=== PATIENT | female | born 1940 | race Caucasian/White ===

== ENCOUNTER → 2020-06-26 10:56 | Outpatient (BNV) | payer MEDICARE, SELFPAY | PROVIDERS: PCP Internal Medicine; Visit Provider Internal Medicine | DX: C50.912 Malignant neoplasm of unspecified site of left female breast (principal) | CPT/HCPCS: 99213; 99214 ==

== ENCOUNTER → 2020-10-23 11:14 | Outpatient (BNVA) | payer MEDICARE, SELFPAY | PROVIDERS: PCP Internal Medicine; Visit Provider Internal Medicine | DX: R00.2 Palpitations (principal); R00.0 Tachycardia, unspecified; R53.1 Weakness; I35.0 Nonrheumatic aortic (valve) stenosis; I63.9 Cerebral infarction, unspecified; I48.0 Paroxysmal atrial fibrillation; I48.19 Other persistent atrial fibrillation; D50.9 Iron deficiency anemia, unspecified; Z87.891 Personal history of nicotine dependence; Z95.0 Presence of cardiac pacemaker; Z79.899 Other long term (current) drug therapy | CPT/HCPCS: 93005; 99202 ==

== ENCOUNTER → 2020-10-27 07:44 | Outpatient (REF) | payer MEDICARE, SELFPAY ==
--- NOTE | 2020-10-27 07:53 | CA_ITS ---
Transthoracic Echocardiogram Patient (Last, First, Middle): Lora Herron, Gender: Female Date of : 1940 Age: 80 Procedure Date: 10/27/2020 Procedure Type: Transthoracic Echocardiogram Location: OP Height: 162.56 cm Weight: 56.7 kg BSA: 1.60 m2 Heart Rate: bpm BP: 135 / 80 mmHg Filler Feeder: SUJATA Referring MD: Russell Ellis MD Symptoms: I35.0 - Nonrheumatic aortic (valve) stenosis Conclusions: - The left ventricular systolic function is hyperdynamic. The visually estimated ejection fraction is >70%. - Elevated filling pressures. - Normal right ventricular cavity size and systolic function. - The left atrium is severely dilated. - There is moderate to severe aortic valve stenosis. The peak aortic velocity is 3.89 m/s with a calculated peak gradient of 61 mmHg. Findings Left Ventricle Normal left ventricular cavity size. There is mildly increased left ventricular wall thickness. The left ventricular systolic function is hyperdynamic. The visually estimated ejection fraction is >70%. There is no evidence of regional wall motion abnormalities. Abnormal diastolic function is noted. Spectral Doppler is indicative of a pseudonormal filling pattern. Elevated filling pressures. Right Ventricle Normal right ventricular cavity size and systolic function. Atria The left atrium is severely dilated. The right atrium is normal in size. Aortic Valve There is moderate calcification of the aortic valve. There is moderate thickening of the aortic valve. There is moderate to severe aortic valve stenosis. The peak aortic velocity is 3.89 m/s with a calculated peak gradient of 61 mmHg. The mean gradient is 37 mmHg. The aortic valve area is 1.14 cm2. There is trace (trivial) aortic valve regurgitation. Mitral Valve There is moderate mitral annular calcification. There is trace mitral valve regurgitation. There is no mitral valve stenosis. Pulmonic Valve Normal pulmonic valve structure and function. There is trace pulmonic valve regurgitation. Tricuspid Valve Normal tricuspid valve structure and function. There is trace tricuspid valve regurgitation. Normal right atrial pressure. There is no evidence of pulmonary hypertension. Great Vessels All visible segments of the aorta are normal in size. The visualized portions of the pulmonary artery and branches are normal. Venous The inferior vena cava is normal in size and collapses greater than 50% with inspiration. Pericardium/Pleural Prominent epicardial adipose tissue noted. There is no evidence of pericardial effusion. Prior Study Comparison Changes noted compared to prior study dated: 11/29/2015. Measurements 2D Linear Measurements IVSd: 1.20 0.6-0.9/0.6-1.0 cm LVIDd: 4.46 3.9-5.3/4.2-5.9 cm LVIDd Index: 2.79 2.4-3.2/2.2-3.1 cm/m2 LVIDs: 2.71 2.0-3.6 cm LVPWd: 0.98 0.7-1.1 cm Ao Root: 2.70 2.1-3.5 cm LA Diam: 4.70 2.7-3.8/3.0-4.0 cm LAIDs Index: 2.94 1.5-2.3 cm/m2 LV Mass: 212.34 67-162/88-224 g LV Mass Index: 132.71 43-95/49-115 g/m2 LVOT Diam: 1.90 3.0+(-)1.3 cm 2D Systolic Function EF 4C: 77.40 >55% EF 2C: 75.90 >55% EF BiP: 77.80 >55% Mitral Valve MV VTI: 0.53 MV Pk Dagoberto: 1.54 MV Mn Dagoberto: 0.83 MV Pk Grad: 9.00 MV Mn Grad: 4.00 MV Pk E: 1.68 MV PK A: 1.56 MV Decel Time: 258.00 E/A: 1.10 E'Lateral: 4.35 E'Medial: 4.13 E/E' Med: 40.70 E/E' Lat: 38.60 PHT: 76.00 MVA PHT: 2.89 MVA Continuity: 2.11 Decel [place]: 6.52 Aortic Valve AoV Pk Dagoberto: 3.89 AoV Mn Dagoberto: 2.88 AoV VTI: 0.98 AoV Pk Grad: 61.00 Aov Mn Grad: 37.00 ESTRELLITA Cont.VTI: 1.14 AI Pk Dagoberto: 4.30 AI [place]: 3.31 LVOT LVOT Pk Dagoberto: 1.55 LVOT Mn [place]oberto: 1.06 LVOT VTI: 0.39 LVOT Pk Grad: 10.00 LVOT Mn Grad: 5.00 LVOT Diam: 1.90 LVOT Area: 2.84 Diastolic Function MV Pk E: 1.68 MV Pk A: 1.56 E/A: 1.10 E'Medial: 4.13 E/E' Med: 40.70 E' Laterial: 4.35 E/E' Lat: 38.60 Right Ventricle TAPSE (mm): 1.78 Tricuspid Valve TR Pk Dagoberto: 2.86 TR Pk Grad: 33.00 RA Press: 3.00 RVSP: 36.00 Great Vessels Aorta Ao Root-2D: 2.70 2.0-3.7 cm Ao Asc: 2.80 2.1-3.4 cm Updated in Other Vendor System with Status of Final Shaq Boyle MD electronically signed on 10/29/2020 11:54:46 PM with status of Final
== END ==
LOC: HO.CARD 07:44
PROVIDERS: Visit Provider Internal Medicine
DX: I35.0 Nonrheumatic aortic (valve) stenosis (principal)
CPT/HCPCS: 93306

== ENCOUNTER → 2020-10-30 14:38 | Outpatient (BNVA) | payer MEDICARE, SELFPAY | PROVIDERS: PCP Internal Medicine; Visit Provider Internal Medicine | DX: Z45.018 Encounter for adjustment and management of other part of cardiac pacemaker (principal); I35.0 Nonrheumatic aortic (valve) stenosis; I48.19 Other persistent atrial fibrillation; I63.9 Cerebral infarction, unspecified; Z79.01 Long term (current) use of anticoagulants | CPT/HCPCS: 99212 ==

== ENCOUNTER → 2020-11-08 10:52 | Outpatient (REF) | payer MEDICARE, SELFPAY ==
--- NOTE | 2020-11-08 10:56 | HM_ITS ---
Total monitoring time 3 days and 10 hours. Underlying rhythm is sinus. Minimum heart rate 60/Min. Maximum 93/Min. Average 73/Min. About 7% of the time, rate >100/Min. About 40% the time, rhythm was atrial fibrillation. Longest episode 1 day and 9 hours. No AV blocks or pauses. Rare PVCs with a burden of 1%. Shortness of breath, palpitations associated with atrial fibrillation. MTDD
== END ==
LOC: HO.CARD 10:52
PROVIDERS: Visit Provider Internal Medicine
DX: I48.19 Other persistent atrial fibrillation (principal); R00.2 Palpitations
CPT/HCPCS: 93225; 93242

== ENCOUNTER → 2020-12-11 11:12 | Outpatient (BNVA) | payer MEDICARE, SELFPAY | PROVIDERS: PCP Internal Medicine; Visit Provider Internal Medicine | DX: I35.0 Nonrheumatic aortic (valve) stenosis (principal); I48.19 Other persistent atrial fibrillation; I48.0 Paroxysmal atrial fibrillation; I63.9 Cerebral infarction, unspecified; I10 Essential (primary) hypertension; E78.00 Pure hypercholesterolemia, unspecified; G47.33 Obstructive sleep apnea (adult) (pediatric); D50.9 Iron deficiency anemia, unspecified; Z95.0 Presence of cardiac pacemaker; Z87.891 Personal history of nicotine dependence | CPT/HCPCS: 99212 ==

== ENCOUNTER → 2021-01-22 12:06 | Outpatient (REF) | payer MEDICARE, SELFPAY | LOC: HO.SL 12:06 | PROVIDERS: Visit Provider Internal Medicine | DX: G47.33 Obstructive sleep apnea (adult) (pediatric) (principal) | CPT/HCPCS: 95806 ==

== ENCOUNTER → 2021-02-26 11:14 | Outpatient (BNVA) | payer MEDICARE, SELFPAY | PROVIDERS: PCP Nurse Practitioner Family; Referring Provider Nurse Practitioner Family; Visit Provider Internal Medicine | DX: I35.0 Nonrheumatic aortic (valve) stenosis (principal); I48.19 Other persistent atrial fibrillation; I63.9 Cerebral infarction, unspecified; G47.33 Obstructive sleep apnea (adult) (pediatric); Z95.0 Presence of cardiac pacemaker | CPT/HCPCS: 99212 ==

== ENCOUNTER → 2021-03-06 10:15 | Outpatient (REF) | payer MEDICARE, SELFPAY ==
--- NOTE | 2021-03-06 10:23 | HM_ITS ---
Conclusion : 1. Patient was monitored for a total of 1 day and 22 hours 2. Basline rhythm is AF with total burden of 85% of total time, longest episode 1 day and 2 hours 3. No significant pauses or bradycardia noted 4. Patient reported one event which correlated with NSR MTDD
--- NOTE | 2021-03-06 10:23 | CA_ITS ---
Transthoracic Echocardiogram Patient (Last, First, Middle): Lora Herron, Gender: Female Date of : 1940 Age: 81 Procedure Date: 03/06/2021 Procedure Type: Transthoracic Echocardiogram Location: OP Height: 162.56 cm Weight: 63.96 kg BSA: 1.69 m2 Heart Rate: bpm BP: 137 / 74 mmHg Public Health Director: SUJATA Referring MD: Russell Ellis MD Patternmaker Grader: Edmundo Peterson MD Symptoms: I35.0 - Nonrheumatic aortic (valve) stenosis Study Quality: Fair ECG Rhythm: Atrial Fibrillation Conclusions: - 1. hyperdynamic LV systolic function with mild LVH 2. Mildly dilated left atrium 3. Moderate to severe aortic stenosis, however difficult to evaluate given atrial fibrillation 4. Normal RV systolic pressure 5. No gross pericardial effusion Findings Left Ventricle Normal left ventricular cavity size. There is mildly increased left ventricular wall thickness. The left ventricular systolic function is hyperdynamic. The visually estimated ejection fraction is >70%. Diastolic function is indeterminate on the basis of available data. Right Ventricle Normal right ventricular cavity size and systolic function. There is a pacemaker wire seen in the right ventricle. Atria The left atrium is mildly dilated. Interatrial shunt cannot be excluded. The right atrium is normal in size. A pacemaker wire is identified in the right atrium. Aortic Valve There is moderate calcification of the aortic valve. There is moderate to severe aortic valve stenosis. The peak aortic gradient is 47 mmHg.The mean gradient is 28 mmHg. There is mild aortic valve regurgitation. the gradients across aortic wall and LVOT are variable due to atrial fibrillation. There is wide variability. This leads to difficulty in evaluation of true severity of aortic stenosis. However mean gradient is about 28 mmHg across aortic valve. Calculated aortic valve area is about 1.08 centimeters sq consistent with moderately severe aortic stenosis. Mitral Valve There is moderate anterior and severe posterior mitral leaflet thickening. There is severe mitral annular calcification. Mitral stenosis cannot be entirely ruled out on this study Pulmonic Valve The pulmonic valve was not well visualized. Tricuspid Valve Likely normal tricuspid valve structure and function. There is mild tricuspid valve regurgitation. The right ventricular systolic pressure is normal. The right ventricular systolic pressure is 26 mmHg. Normal right atrial pressure. There is no evidence of pulmonary hypertension. Great Vessels All visible segments of the aorta are normal in size. The pulmonary artery was not well visualized. Venous The inferior vena cava is normal in size and collapses greater than 50% with inspiration. Pericardium/Pleural There is no evidence of pericardial effusion. Prior Study Comparison No significant change compared to prior study dated: 10/27/2020. Measurements 2D Linear Measurements IVSd: 1.20 0.6-0.9/0.6-1.0 cm LVIDd: 3.62 3.9-5.3/4.2-5.9 cm LVIDd Index: 2.14 2.4-3.2/2.2-3.1 cm/m2 LVIDs: 2.53 2.0-3.6 cm LVPWd: 1.19 0.7-1.1 cm Ao Root: 2.80 2.1-3.5 cm LA Diam: 4.40 2.7-3.8/3.0-4.0 cm LAIDs Index: 2.60 1.5-2.3 cm/m2 LV Mass: 171.84 67-162/88-224 g LV Mass Index: 101.68 43-95/49-115 g/m2 LVOT Diam: 1.80 3.0+(-)1.3 cm 2D Systolic Function EF 4C: 74.30 >55% Mitral Valve MV VTI: 0.35 MV Pk Dagoberto: 1.65 MV Mn Dagoberto: 0.89 MV Pk Grad: 11.00 MV Mn Grad: 4.00 MV Pk E: 1.44 MV Decel Time: 206.00 E'Lateral: 5.06 E'Medial: 5.33 E/E' Med: 27.00 E/E' Lat: 28.50 PHT: 61.00 MVA PHT: 3.61 MVA Continuity: 1.53 Decel [place]: 7.19 Aortic Valve AoV Pk Dagoberto: 3.44 AoV Mn Dagoberto: 2.45 AoV VTI: 0.65 AoV Pk Grad: 47.00 Aov Mn Grad: 28.00 ESTRELLITA Cont.VTI: 0.83 LVOT LVOT Pk Dagoberto: 1.09 LVOT Mn Dagoberto: 0.73 LVOT VTI: 0.21 LVOT Pk Grad: 5.00 LVOT Mn Grad: 3.00 LVOT Diam: 1.80 LVOT Area: 2.54 Diastolic Function MV Pk E: 1.44 E'Medial: 5.33 E/E' Med: 27.00 E' Laterial: 5.06 E/E' Lat: 28.50 Right Ventricle TAPSE (mm): 19.00 TVS' [place]: 14.00 Tricuspid Valve TR Pk [place]ober[place]: 2.41 TR Pk Grad: 23.00 RA Press: 3.00 RVSP: 26.00 Great Vessels Aorta Ao Root-2D: 2.80 2.0-3.7 cm Updated in Other Vendor System with Status of Final Edmundo Peterson MD electronically signed on 03/07/2021 3:05:26 PM with status of Final
== END ==
LOC: HO.CARD 10:15
PROVIDERS: Visit Provider Internal Medicine
DX: I35.0 Nonrheumatic aortic (valve) stenosis (principal); I48.19 Other persistent atrial fibrillation
CPT/HCPCS: 93242; 93306

== ENCOUNTER → 2021-04-02 12:56 | Outpatient (BNVA) | payer MEDICARE, SELFPAY | PROVIDERS: PCP Nurse Practitioner Family; Referring Provider Nurse Practitioner Family; Visit Provider Internal Medicine | DX: Z45.018 Encounter for adjustment and management of other part of cardiac pacemaker (principal); I35.0 Nonrheumatic aortic (valve) stenosis; I48.19 Other persistent atrial fibrillation; G47.33 Obstructive sleep apnea (adult) (pediatric); Z86.73 Personal history of transient ischemic attack (TIA), and cerebral infarction without residual deficits | CPT/HCPCS: 99212 ==

== ENCOUNTER → 2021-09-14 12:26 | Outpatient (REF) | payer MEDICARE, SELFPAY ==
--- NOTE | 2021-09-14 13:01 | CA_ITS ---
Transthoracic Echocardiogram Patient (Last, First, Middle): Lora Herron, Gender: Female Date of : 1940 Age: 81 Procedure Date: 09/14/2021 Procedure Type: Transthoracic Echocardiogram Location: OP Height: 160.02 cm Weight: 61.24 kg BSA: 1.64 m2 Heart Rate: bpm BP: 138 / 76 mmHg Market Analysis Director: CRISTIANE Referring MD: Russell Ellis MD Symptoms: I35.0 - Nonrheumatic aortic (valve) stenosis Study Quality: Fair Conclusions: - 1. Normal LV systolic function with mild LVH with impaired relaxation filling pattern and elevated filling pressures 2. Mildly dilated left atrium 3. Severe aortic stenosis with mean gradient of 48 mmHg. there is some evidence of possible subaortic obstruction although it is not well defined on this study. 4. Severe mitral calcification with possible mild mitral stenosis 5. Normal RV systolic pressure 6. No pericardial effusion Findings Left Ventricle Normal left ventricular size and systolic function. There is mildly increased left ventricular wall thickness. The visually estimated ejection fraction is between 60-65%. Spectral Doppler is indicative of an impaired relaxation filling pattern. Elevated filling pressures. E/E prime ratio is >15, consistent with elevated filling pressures. Right Ventricle Normal right ventricular cavity size and systolic function. Atria The left atrium is mildly dilated. There is lipomatous hypertrophy of the interatrial septum. There is no evidence of interatrial shunt. The right atrium is mildly dilated. Aortic Valve The aortic valve was not well visualized. There is moderate calcification of the aortic valve. There is severe aortic valve stenosis. The mean gradient is 48 mmHg. The aortic valve area is 0.91 cm2. There is mild aortic valve regurgitation. Mitral Valve There is mild anterior and severe posterior mitral leaflet thickening. There is severe mitral annular calcification. There is trace mitral valve regurgitation. There is mild mitral valve stenosis. Pulmonic Valve The pulmonic valve was not well visualized. Tricuspid Valve Normal tricuspid valve structure. There is mild tricuspid valve regurgitation. The right ventricular systolic pressure is normal. The right ventricular systolic pressure is 33 mmHg. Normal right atrial pressure. There is no evidence of pulmonary hypertension. Great Vessels All visible segments of the aorta are normal in size. The pulmonary artery was not well visualized. Venous The inferior vena cava is normal in size and collapses greater than 50% with inspiration. Pericardium/Pleural There is no evidence of pericardial effusion. Prior Study Comparison Changes noted compared to prior study dated: 03/06/2021. Measurements 2D Linear Measurements IVSd: 1.18 0.6-0.9/0.6-1.0 cm LVIDd: 3.96 3.9-5.3/4.2-5.9 cm LVIDd Index: 2.41 2.4-3.2/2.2-3.1 cm/m2 LVIDs: 2.14 2.0-3.6 cm LVPWd: 1.12 0.7-1.1 cm LA Diam: 4.30 2.7-3.8/3.0-4.0 cm LAIDs Index: 2.62 1.5-2.3 cm/m2 LV Mass: 190.54 67-162/88-224 g LV Mass Index: 116.19 43-95/49-115 g/m2 LVOT Diam: 1.80 3.0+(-)1.3 cm 2D Systolic Function EF 4C: 72.60 >55% EF 2C: 57.30 >55% EF BiP: 65.70 >55% Mitral Valve MV VTI: 0.63 MV Pk Dagoberto: 1.71 MV Mn Dagoberto: 0.99 MV Pk Grad: 12.00 MV Mn Grad: 5.00 MV Pk E: 1.18 MV PK A: 1.52 MV Decel Time: 442.00 E/A: 0.80 E'Lateral: 4.13 E'Medial: 3.05 E/E' Med: 38.70 E/E' Lat: 28.60 PHT: 124.00 MVA PHT: 1.77 MVA Continuity: 1.50 Decel [place]: 3.77 Aortic Valve AoV Pk Dagoberto: 4.24 AoV Mn Dagoberto: 3.30 AoV VTI: 1.04 AoV Pk Grad: 72.00 Aov Mn Grad: 48.00 ESTRELLITA Cont.VTI: 0.91 AI Pk Dagoberto: 4.57 AI [place]: 2.49 LVOT LVOT Pk Dagoberto: 1.48 LVOT Mn [place]: 1.19 LVOT VTI: 0.37 LVOT Pk Grad: 9.00 LVOT Mn Grad: 6.00 LVOT Diam: 1.80 LVOT Area: 2.54 Diastolic Function MV Pk E: 1.18 MV Pk A: 1.52 E/A: 0.80 E'Medial: 3.05 E/E' Med: 38.70 E' Laterial: 4.13 E/E' Lat: 28.60 Right Ventricle TAPSE (mm): 17.10 TVS' [place]: 8.27 Tricuspid Valve TR Pk [place]: 2.76 TR Pk Grad: 30.00 RA Press: 3.00 RVSP: 33.00 Great Vessels Aorta Sinus of Valsalva: 2.68 2.0-3.5 cm Ao Asc: 2.90 2.1-3.4 cm Ao Arch: 2.80 Updated in Other Vendor System with Status of Final Edmundo Peterson MD electronically signed on 09/15/2021 2:20:21 PM with status of Final
== END ==
LOC: HO.CARD 12:26
PROVIDERS: Visit Provider Internal Medicine
DX: I35.0 Nonrheumatic aortic (valve) stenosis (principal)
CPT/HCPCS: 93306

== ENCOUNTER 2021-09-27 11:24 | Outpatient (REF) | payer MEDICARE, SELFPAY ==
[2021-09-27 12:02] LABS: Hematocrit 44.3 % (37.0-47.0); Hemoglobin 14.8 g/dl (12.0-16.0); Mean Corpuscular HGB Conc 33.4 g/dl (31.0-35.0); Mean Corpuscular Hemoglobin 32.4 pg (27.0-33.0); Mean Corpuscular Volume 96.9 fL (80.0-98.0); Mean Platelet Volume 9.9 fL (9.4-12.3); Platelet Count 320 X10*3/uL (160-400); Red Blood Count 4.57 X10*6/uL (4.20-5.50); Red Cell Distribution Width 13.1 % (11.0-16.0); White Blood Count 10.6 X10*3/uL (4.8-10.8)
[2021-09-27 12:06] LABS: INTERNATIONAL NORM RATIO 1.2 (0.9-1.1); Prothrombin Time 14.3 SEC (10.0-13.1)
[2021-09-27 12:29] LABS: Anion Gap 11 (12-20); Blood Urea Nitrogen 18 mg/dL (9-16); Calcium 9.7 mg/dL (8.4-10.2); Carbon Dioxide 27 mmol/L (22-29); Chloride 111 mmol/L (96-108); Estimated Glomerular Filt Rate 54; Glucose Random 117 mg/dL (60-115); Potassium 4.6 mmol/L (3.3-5.1); Sodium 144 mmol/L (135-145)
[2021-09-27 12:51] LABS: TSH reflex Free T4 1.79 uIU/mL (0.32-4.0)
== END 2021-09-27 11:25 | disposition home or self-care (01) ==
LOC: HO.LAB 11:24
PROVIDERS: Visit Provider Internal Medicine
DX: I35.0 Nonrheumatic aortic (valve) stenosis (principal); I48.19 Other persistent atrial fibrillation
CPT/HCPCS: 36415; 80048; 84443; 85027; 85610; 93005; 99212

== ENCOUNTER → 2021-11-14 12:52 | Outpatient (BNVA) | payer MEDICARE, SELFPAY | PROVIDERS: Visit Provider Internal Medicine | DX: I35.0 Nonrheumatic aortic (valve) stenosis (principal); I10 Essential (primary) hypertension; I48.19 Other persistent atrial fibrillation; I65.23 Occlusion and stenosis of bilateral carotid arteries; G47.33 Obstructive sleep apnea (adult) (pediatric); Z86.73 Personal history of transient ischemic attack (TIA), and cerebral infarction without residual deficits; Z79.01 Long term (current) use of anticoagulants; Z79.899 Other long term (current) drug therapy; Z95.0 Presence of cardiac pacemaker | CPT/HCPCS: 99212 ==

== ENCOUNTER → 2022-01-23 12:43 | Outpatient (REF) | payer MEDICARE, SELFPAY ==
--- NOTE | 2022-01-23 12:47 | CA_ITS ---
Transthoracic Echocardiogram Patient (Last, First, Middle): Lora Herron, Gender: Female Date of : 1940 Age: 82 Procedure Date: 01/23/2022 Procedure Type: Transthoracic Echocardiogram Location: OP Height: 160.02 cm Weight: 60.78 kg BSA: 1.63 m2 Heart Rate: bpm BP: 100 / 62 mmHg Store Worker: TO Referring MD: Russell Ellis MD Symptoms: Z95.2 - Presence of prosthetic heart valve Study Quality: Fair ECG Rhythm: Atrial Fibrillation Conclusions: - The left ventricular systolic function is normal. The visually estimated ejection fraction is between 65-70%. - A bioprosthetic aortic valve is present. The prosthetic aortic valve appears to be functioning normally. Findings Left Ventricle Normal left ventricular cavity size. The left ventricular systolic function is normal. The visually estimated ejection fraction is between 65-70%. There is no evidence of regional wall motion abnormalities. Diastolic function is indeterminate on the basis of available data. [id number] left ventricular hypertrophy, concentric with some asymmetric septal hypertrophy. Mildly increased gradients across the LVOT but no definite obstruction. Right Ventricle Normal right ventricular cavity size. There is mildly decreased right ventricular systolic function. There is a pacemaker wire seen in the right ventricle. Atria The left atrium is mildly dilated. Aortic Valve A bioprosthetic aortic valve is present. The prosthetic aortic valve appears to be functioning normally. The mean gradient is 8 mmHg. Mild para-valvular leak. Mitral Valve There is moderate mitral annular calcification. There is trace mitral valve regurgitation. There is mild mitral valve stenosis. Pulmonic Valve The pulmonic valve is likely normal. Tricuspid Valve Normal tricuspid valve structure. There is mild tricuspid valve regurgitation. There is no evidence of pulmonary hypertension. Great Vessels The asc aorta and aortic arch are normal in size. Venous The inferior vena cava is normal in size and collapses greater than 50% with inspiration. Pericardium/Pleural There is a trivial pericardial effusion. Prior Study Comparison Changes noted compared to prior study dated: 09/14/2021. s/p TAVR. Measurements 2D Linear Measurements IVSd: 1.44 0.6-0.9/0.6-1.0 cm LVIDd: 2.95 3.9-5.3/4.2-5.9 cm LVIDd Index: 1.81 2.4-3.2/2.2-3.1 cm/m2 LVIDs: 1.60 2.0-3.6 cm LVPWd: 1.25 0.7-1.1 cm LA Diam: 3.30 2.7-3.8/3.0-4.0 cm LAIDs Index: 2.02 1.5-2.3 cm/m2 LV Mass: 159.88 67-162/88-224 g LV Mass Index: 98.09 43-95/49-115 g/m2 LVOT Diam: 1.80 3.0+(-)1.3 cm 2D Systolic Function EF 4C: 60.70 >55% EF 2C: 69.30 >55% EF BiP: 65.20 >55% Mitral Valve MV VTI: 0.44 MV Pk Dagoberto: 1.67 MV Mn [place]to: 0.73 MV Pk Grad: 11.00 MV Mn Grad: 3.00 MV Pk E: 1.60 MV Decel Time: 317.00 E'Lateral: 5.44 E'Medial: 5.22 E/E' Med: 30.70 E/E' Lat: 29.40 PHT: 93.00 MVA PHT: 2.37 MVA Continuity: 1.65 Decel [place]: 5.04 Aortic Valve AoV Pk Dagoberto: 2.02 AoV Mn [place]: 1.29 AoV VTI: 0.39 AoV Pk Grad: 16.00 Aov Mn Grad: 8.00 ESTRELLITA Cont.VTI: 1.86 LVOT LVOT Pk [place]: 1.26 LVOT Mn [place]: 0.89 LVOT VTI: 0.28 LVOT Pk Grad: 6.00 LVOT Mn Grad: 4.00 LVOT Diam: 1.80 LVOT Area: 2.54 Diastolic Function MV Pk E: 1.60 E'Medial: 5.22 E/E' Med: 30.70 E' Laterial: 5.44 E/E' Lat: 29.40 Right Ventricle TAPSE (mm): 15.10 TVS' [place]: 8.38 Tricuspid Valve TR Pk [place]: 2.39 TR Pk Grad: 23.00 RA Press: 3.00 RVSP: 26.00 Great Vessels Aorta Ao Asc: 2.60 2.1-3.4 cm Ao Arch: 2.90 Updated in Other Vendor System with Status of Final Russell Ellis MD electronically signed on 01/25/2022 10:10:19 AM with status of Final
== END ==
LOC: HO.CARD 12:43
PROVIDERS: Visit Provider Internal Medicine
DX: Z95.2 Presence of prosthetic heart valve (principal)
CPT/HCPCS: 93306

== ENCOUNTER → 2022-02-20 13:33 | Outpatient (BNVA) | payer MEDICARE, SELFPAY | PROVIDERS: Visit Provider Internal Medicine | DX: I48.19 Other persistent atrial fibrillation (principal); I63.9 Cerebral infarction, unspecified; I10 Essential (primary) hypertension; G47.33 Obstructive sleep apnea (adult) (pediatric); Z95.2 Presence of prosthetic heart valve; Z95.0 Presence of cardiac pacemaker | CPT/HCPCS: 99212 ==

== ENCOUNTER → 2022-07-01 12:15 | Outpatient (BNVA) | payer MEDICARE, SELFPAY | PROVIDERS: Visit Provider Internal Medicine | DX: I48.19 Other persistent atrial fibrillation (principal); G47.33 Obstructive sleep apnea (adult) (pediatric); I10 Essential (primary) hypertension; Z86.73 Personal history of transient ischemic attack (TIA), and cerebral infarction without residual deficits; Z95.2 Presence of prosthetic heart valve; Z45.018 Encounter for adjustment and management of other part of cardiac pacemaker; Z79.01 Long term (current) use of anticoagulants; Z79.899 Other long term (current) drug therapy | CPT/HCPCS: 93280; 99212 ==

== ENCOUNTER → 2022-09-24 23:59 | Outpatient (BNV) | payer MEDICARE, SELFPAY ==
--- NOTE | 2022-10-02 14:17 | A.OFFVIS_ITS ---
Intake Intake Visit Reasons: Remote Device Check- [employer] Allergies Seasonal Allergies Allergy (Verified 07/01/22 13:08) Runny Nose PFSH Medical History Breast cancer, left Embolic stroke Heart murmur HTN (hypertension) Hypercholesterolemia Iron deficiency anemia Non-rheumatic aortic stenosis Pacemaker PAF (paroxysmal atrial fibrillation) Persistent atrial fibrillation Stroke Tachycardia Surgical History History of lumpectomy of left breast Hx of colonoscopy Hx of foot surgery Hx of hysterectomy Hx of tonsillectomy Status post transcatheter aortic valve replacement Family History Brother Hodgkin lymphoma Father Colon cancer Social History (Updated 07/01/22 @ 13:11 by Lazara Bragg) Household Members: None Housing: House Alcohol intake: current Alcohol intake frequency: holidays/special occasions only Alcohol type: other Patient Tobacco Use Status: Former Tobacco user service: No Current occupational status: retired Office Procedures Cardiac Device Check Cardiac Device Check Details: Date of service- 09/24/2022 ; Battery life 11 years; normal lead parameters; AP <0.1%; [employer] MEMBER 69%; underlying atrial fibrillation, controlled rate. Overall normal device function. [id number] Cardiac Device Interrogation, pacemaker Procedure code (CPT) selection complete Assessment & Plan Assessment & Plan (1) Persistent atrial fibrillation: Code(s): I48.19 - Other persistent atrial fibrillation Coding Level of Care Code Procedure Only Diagnoses Persistent atrial fibrillation I48.19 CPT Codes Cardiac Device Check - Cardiac Device 12: [id number] Cardiac Device Interrogation, pacemaker ([id number])
== END ==
PROVIDERS: PCP Family Medicine; Visit Provider Internal Medicine
DX: I48.19 Other persistent atrial fibrillation (principal)
CPT/HCPCS: 93294

== ENCOUNTER 2022-10-16 10:07 | Outpatient (AMB) | payer MEDICARE, SELFPAY ==
--- NOTE | 2022-10-16 10:14 | MHC.PC.OV ---
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 Patient reports feeling tired all of the time, feeling stressed more often, sleeping on and off throughout the night. Patient reports struggling with feeling anxious/nervous. During these times of feeling anxious and nervous patient reports she does not drive. Patient states she has a pacemaker on the right side. 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 Required: No Accompanied by: Self / Same As Patient Allergies Seasonal Allergies Allergy (Verified 10/16/22 10:23) Runny Nose Medication List - Last Reconciled 10/16/22 by Hansel Gerber MD apixaban (Eliquis) 2.5 mg PO BID aspirin 81 mg PO DAILY atorvastatin 80 mg PO QPM coQ10 (ubiquinol) 200 mg PO DAILY digoxin (Digox) 125 mcg PO DAILY diltiazem HCl 240 mg PO DAILY lisinopril 2.5 mg PO DAILY metoprolol succinate ER (Toprol XL) 75 mg (3 x 25 mg) PO DAILY 90 days turmeric (bulk) 95% (Curcumin) 300 ea miscellaneous DAILY Tobacco use date assessed: 10/16/22 Fall risk assessment: 1 Fall in past year Last assessed Fall Risk: 10/16/22 Dental Screening Dental Screen Date: 10/16/22 Did you have a dental visit in the last 12 months?: Yes Did you have a dental problem in the last 6 months where you did not have access to dental care?: No Was dental information given to patient?: Patient has dentist 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 [facility] Last office visit/CPE: > 1 yr Acute issue(s): Anxiety -Pt mentions she has used valium in the past for TMJ. Fatigue -Has been having difficulty sleeping and reports she has been feeling stressed. She mentions waking up multiple times and reports she worries about falling asleep at the wheel. She does have a hx of sleep apnea. PMHx: Afib now s/p pacer, aortic stenosis, HTN, CVA w/ R sided weakness which has resolved, HLD, Breast CA, PreDM, SBO, Cholelithiasis, R Thyroid Lobe Nodule, MAXWELL. Hiatal hernia. Endometrioma (s/p hysterectomy) SurgHx: L mastectomy, Hysterectomy and 1 ovary SocHx: Quit 1985, EtOH occasional for holidays. HPI Comments History of Present Illness Details Documentation assistance for Hansel Gerber MD, was provided by Percy Walls,? Motorcycle Racer on 10/16/2022 11:13 AM CRISTINO. Ruby, Dr. Gerber, have read, observed, and verified documentation. [facility] Medical History Breast cancer, left Embolic stroke Heart murmur HTN (hypertension) Hypercholesterolemia Iron deficiency anemia Non-rheumatic aortic stenosis Pacemaker PAF (paroxysmal atrial fibrillation) Persistent atrial fibrillation Stroke Tachycardia Surgical History History of lumpectomy of left breast Hx of colonoscopy Hx of foot surgery Hx of hysterectomy Hx of tonsillectomy Status post transcatheter aortic valve replacement Family History Brother Hodgkin lymphoma Father Colon cancer Social History (Updated 10/16/22 @ 10:26 by Destiney Hernandez) Household Members: None Housing: House Alcohol intake: current Alcohol intake frequency: holidays/special occasions only Alcohol type: other Patient Tobacco Use Status: Former Tobacco user e-Cigarette/Vaping Use: Never Used service: No Current occupational status: retired Cognitive needs: No Hearing needs: No Vision needs: No Questionnaire PHQ-9 Over the last 2 weeks, how often have you been bothered by any of the following problems? 1. Little interest or pleasure in doing things: not at all 2. Feeling down, depressed, or hopeless: not at all 3. Trouble falling or staying asleep, or sleeping too much: more than half the days 4. Feeling tired or having little energy: more than half the days 5. Poor appetite or overeating: not at all 6. Feeling bad about yourself - or that you are a failure or have let yourself or your family down: not at all 7. Trouble concentrating on things, such as reading the newspaper or watching television: not at all 8. Moving or speaking so slowly that other people could have noticed. Or the opposite - being so fidgety or restless that you have been moving around a lot more than usual: several days 9. Thoughts that you would be better off or of hurting yourself in some way: not at all Total score: 5 Depression Screening Interpretation: Positive 02312 - PHQ-9 Billing: Yes Source: Developed by Drs. Marvin Rodas, Zehra Cartwright, Bandar Freeman and colleagues, with an educational josselin from [employer]. DOMONIQUE-7 AMB Questionnaire DOMONIQUE-7 Date DOMONIQUE - 7 assessed: 10/16/22 Feeling nervous, anxious, or on edge: 2 = More than half the days Not being able to stop or control worryin = Several days Worrying too much about different things: 1 = Several days Trouble relaxin = Several days Being so restless that it is hard to sit still: 2 = More than half the days Becoming easily annoyed or irritable: 1 = Several days Feeling afraid as if something awful might happen: 0 = Not at all Total DOMONIQUE-7 score (0-4 normal; 5-9 mild; 10-14 moderate; 15-21 severe): 8 Source: Developed by Drs. Marvin Rodas, Zehra Cartwright, Bandar Freeman and colleagues, with an educational josselin from [employer]. DOMONIQUE-7 Assessment Billing DOMONIQUE-7 Assessment Tool: DOMONIQUE-7 Assessment 14074 Review of Systems Const Denies chills, Denies fatigue, Denies fever(s), Denies headache(s) and Denies weakness ENT Denies dizziness and Denies headache(s) Card Denies chest pain, Denies lightheadedness, Denies dyspnea and Denies other (Palpitations) Resp Denies cough, Denies dyspnea, Denies wheezing and Denies other ( shortness of breath) Musc Denies numbness and Denies tingling Neuro Denies dizziness, Denies headache(s), Denies numbness, Denies tingling, Denies paresthesias and Denies weakness Psych Denies anxiety and Denies depression Endo Denies fatigue Aller/Immun Denies wheezing Physical exam (Primary Care) Vital Signs: Last Vital Signs Temp 98.4 F 10/16/22 10:18 Pulse 76 10/16/22 10:18 Resp 14 10/16/22 10:18 BP 130/74 10/16/22 10:18 Pulse Ox 95 10/16/22 10:18 Oxygen Delivery Method Room Air 10/16/22 10:18 BMI result Body Mass Index 25.3 Tobacco/Smoking Status: Tobacco use Status Tobacco use date assessed 10/16/22 10/16/22 10:27 Patient Tobacco Use Status Former Tobacco user 10/16/22 10:26 e-Cigarette/Vaping Use Never Used 10/16/22 10:27 Depression Screening Interpretation: Positive Const General: no acute distress and well developed Nutritional Appearance: well nourished Orientation/consciousness: patient oriented x3 HENMT Head: Yes normocephalic and Yes atraumatic Eyes General: appearance normal, both eyes and all related structures Pupils: Equal, round and reactive pupils present EOM: EOMs intact bilaterally Resp Effort & Inspection: normal respiratory effort Auscultation: clear to auscultation bilaterally Cardio Rate: regular rate Rhythm: abnormal rhythm and abnormal rhythm irregularly irregular Heart sounds: S1 normal heart sound present, S2 normal heart sound present, no gallops, no murmurs and no rubs Neuro General: patient oriented x3 and gait normal Cranial nerves: Yes Equal, round and reactive pupils present Psych Affect: normal affect Assessment and Plan Assessment & Plan (1) Anxiety: Code(s): F41.9 - Anxiety disorder, unspecified Plan: New/worsened anxiety. Patient mentions that she has used Valium in the past for TMJ. I discussed that using a sedating medication as a first-line medication would be potentially problematic Offered SSRI treatment but patient declines for now. Anxiety may be secondary to stressful event-offered a therapist but patient declines this. May also have worsened anxiety secondary to sleep apnea which is untreated. Referring patient to Sleep Medicine (2) Fatigue: Code(s): R53.83 - Other fatigue Plan: Likely secondary to untreated sleep apnea. Will check for other causes as well. Referring her to Sleep Medicine (3) Normally functioning cardiac pacemaker present: Code(s): Z95.0 - Presence of cardiac pacemaker Plan: Stable Follow-up with Cardiology (4) Persistent atrial fibrillation: Code(s): I48.19 - Other persistent atrial fibrillation Plan: Patient has a pacer and her rate is controlled. Continue Eliquis and aspirin Follow-up with Cardiology as recommended (5) Hiatal hernia: Code(s): K44.9 - Diaphragmatic hernia without obstruction or gangrene Plan: Patient requests referral to General surgery to discuss repair (6) History of stroke: Code(s): Z86.73 - Personal history of transient ischemic attack (TIA), and cerebral infarction without residual deficits Plan: History of stroke with initial right-sided weakness. No residual weakness. She is on aspirin Blood pressure is controlled (7) Laboratory exam ordered as part of routine general medical examination: Code(s): Z00.00 - Encounter for general adult medical examination without abnormal findings Plan: Check labs Orders: Orders Vitamin B12 and Folate Today E53.8 - Deficiency of other specified B group vitamins Comprehensive [place]. Panel Fast Today Z00.00 - Encounter for general adult medical examination without abnormal findings Lipid Panel Today Z00.00 - Encounter for general adult medical examination without abnormal findings TSH reflex Free T4 Today Z00.00 - Encounter for general adult medical examination without abnormal findings Vitamin D 25-OH Total Today E55.9 - Vitamin D deficiency, unspecified Microalbumin, Random (w Creat) Today I10 - Essential (primary) hypertension Complete Blood Count Auto Diff Today Z00.00 - Encounter for general adult medical examination without abnormal findings UA and rflx microscopic Today Z00.00 - Encounter for general adult medical examination without abnormal findings Digoxin Today I48.19 - Other persistent atrial fibrillation Referrals General Surgery Referral K44.9 - Diaphragmatic hernia without obstruction or gangrene Sleep Medicine Referral G47.33 - Obstructive sleep apnea (adult) (pediatric) Coding Level of Care Code New Pt Level 4 (63828) Diagnoses Anxiety F41.9 Fatigue R53.83 Normally functioning cardiac pacemaker present Z95.0 Persistent atrial fibrillation I48.19 Hiatal hernia K44.9 History of stroke Z86.73 Laboratory exam ordered as part of routine general medical examination Z00.00 Additional Codes DOMONIQUE-7 Assessment Billing - DOMONIQUE-7 Assessment Tool: DOMONIQUE-7 Assessment 63708 ([id number])
[2022-10-16 10:18] VITALS: BP 130/74; PULSE 76; RESP 14; TEMP 36.9; O2SAT 95; BMI 25.3
== END 2022-10-16 11:13 | disposition home or self-care (01) ==
PROVIDERS: Visit Provider Family Medicine
DX: F41.9 Anxiety disorder, unspecified (principal); I48.19 Other persistent atrial fibrillation; Z86.73 Personal history of transient ischemic attack (TIA), and cerebral infarction without residual deficits; Z95.0 Presence of cardiac pacemaker; R53.83 Other fatigue; K44.9 Diaphragmatic hernia without obstruction or gangrene
CPT/HCPCS: 96127; 99204

== ENCOUNTER 2022-11-13 13:11 | Outpatient (AMB) | payer MEDICARE, SELFPAY ==
--- NOTE | 2022-11-13 13:13 | A.OFFVIS_ITS ---
Intake Vital Signs 11/13/22 13:19 Height 5 ft 0.75 in Weight 124 lb 5.451 oz BMI 23.7 BP 130/60 Blood Pressure Location Rt brachial Position Sitting Pulse 82 Pulse Source Pulse Oximeter Temp 97.6 F Temp Source Tympanic Pulse Oximetry (%) 96 Oxygen Delivery Method Room Air Intake Visit Reasons: Hiatal hernia Dietitian Chief Required: No Ct Scan Technologist: Ct Scan Technologist offered & declined Allergies Seasonal Allergies Allergy (Verified 11/13/22 13:20) Runny Nose Medication List - Last Reconciled 11/13/22 by Flavio Jimenez MD apixaban (Eliquis) 2.5 mg PO BID aspirin 81 mg PO DAILY atorvastatin 80 mg PO QPM coQ10 (ubiquinol) 200 mg PO DAILY digoxin (Digox) 125 mcg PO DAILY diltiazem HCl 240 mg PO DAILY lisinopril 2.5 mg PO DAILY metoprolol succinate ER (Toprol XL) 75 mg (3 x 25 mg) PO DAILY 90 days turmeric (bulk) 95% (Curcumin) 300 ea miscellaneous DAILY HPI HPI Comments History of Present Illness Details The patient is an 82-year-old woman who walks with a walker and is referred to discuss a large hiatal hernia that was identified previously. Patient notes that last fall, November 2021, when she was being assessed for a TAVR, she had an MRI of her chest that showed most of my stomach is in my chest. Patient notes that she has previously seen Dr. Hale for colonoscopy and endoscopy but is unclear as to when her last upper endoscopy was performed thinking it was at least 5 years ago. Patient notes a prior history of severe GERD that was managed with omeprazole, however, she states that her upper GI symptoms have resolved and she rarely will take Tums at this point. She has stopped any PPI and reports no GERD, regurgitation, water/sour brash, dysphagia, odynophagia, hematemesis or unexplained weight loss. She is here purely because she was told she has a large hiatal hernia which is asymptomatic but she is concerned about possible co mplications. In addition to the TAVR last fall, the patient notes a history of atrial fibrillation requiring Eliquis, hypertension, history of an embolic stroke, obstructive sleep apnea, a pacemaker that was placed due to bradycardia, and history of breast cancer in 2013 treated with lumpectomy and axillary dissection. Patient is a former smoker who quit in 1985, she notes her only abdominal o perations is a hysterectomy in 1977 for endometriosis and endometrioma. Patient states she was admitted to [facility] earlier this year in Jul, 2022 for presumed bowel obstruction since she was having severe vomiting. There was a CT scan done at that time and I have reviewed the report, but will need to see the images as well as the discharge summary from that hospitalization. GERD questionnaire rates 0 ESS 9 (known MAXWELL & CPAP) PFSH Medical History Breast cancer, left Embolic stroke Heart murmur HTN (hypertension) Hypercholesterolemia Iron deficiency anemia Non-rheumatic aortic stenosis Pacemaker PAF (paroxysmal atrial fibrillation) Persistent atrial fibrillation Stroke Tachycardia Surgical History History of lumpectomy of left breast Hx of colonoscopy Hx of foot surgery Hx of hysterectomy Hx of tonsillectomy Status post transcatheter aortic valve replacement Family History Brother Hodgkin lymphoma Father Colon cancer Social History Household Members: None Housing: House Alcohol intake: current Alcohol intake frequency: holidays/special occasions only Alcohol type: other Patient Tobacco Use Status: Former Tobacco user e-Cigarette/Vaping Use: Never Used service: No Current occupational status: retired Cognitive needs: No Hearing needs: No Vision needs: No Review of Systems Const All systems reviewed & are unremarkable except as noted in HPI and below Reports as per HPI Physical Exam Vital Signs: Last Vital Signs Temp 97.6 F 11/13/22 13:19 Pulse 82 11/13/22 13:19 BP 130/60 11/13/22 13:19 Pulse Ox 96 11/13/22 13:19 Oxygen Delivery Method Room Air 11/13/22 13:19 BMI result Body Mass Index 23.7 On exam, the patient is nontoxic and is in good spirits She utilizes a walker for stability She is anicteric She is frail and kyphotic with interosseous hand muscle wasting Heart is irregular with a possible murmur No carotid bruits are appreciated and no cervical masses or adenopathy are appreciated Her lungs are clear and equal anteriorly Her abdomen is soft and nontender with no appreciated hernias Skin has decreased turgor and is thinned as expected with her age Results Reviewed Results Reviewed: Labs from 07/01/2022 show a normal hemoglobin of 13.5 with normal indices, elev ated white count of 12 point 9 and a platelet count of 322 K Patient has a BUN of 15/creatinine of 1.07 and had a sodium of 147 at that visit Nonfasting labs including a pre-albumin, CMP, CBC, hemoglobin A1c given her chronically elevated blood glucose are ordered Diagnostic imaging: An upper GI is ordered The patient is granted permission to contact [facility] to obtain the actual disc with her CT from earlier this year as well as admission record Chest CT report from [facility] is reviewed and demonstrates a moderate hiatal hernia according to the report Assessment & Plan Assessment & Plan (1) Hiatal hernia: Code(s): K44.9 - Diaphragmatic hernia without obstruction or gangrene (2) Anticoagulated: 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(s): 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 (3) Status post transcatheter aortic valve replacement: Code(s): Z95.2 - Presence of prosthetic heart valve (4) Essential hypertension: Code(s): I10 - Essential (primary) hypertension (5) MAXWELL (obstructive sleep apnea): Code(s): G47.33 - Obstructive sleep apnea (adult) (pediatric) (6) Normally functioning cardiac pacemaker present: Code(s): Z95.0 - Presence of cardiac pacemaker (7) Persistent atrial fibrillation: Code(s): I48.19 - Other persistent atrial fibrillation (8) Embolic stroke: Code(s): I63.9 - Cerebral infarction, unspecified (9) Breast cancer: Code(s): C50.919 - Malignant neoplasm of unspecified site of unspecified female breast (10) Non-rheumatic aortic stenosis: Code(s): I35.0 - Nonrheumatic aortic (valve) stenosis (11) History of stroke: Code(s): Z86.73 - Personal history of transient ischemic attack (TIA), and cerebral infarction without residual deficits Plan Using a teaching travel counselor automobile club, I explained a hiatal hernia to the patient and did discuss possible complications such as Yared erosions/ulcers that can cause chronic anemia, torsion or volvulus. The patient would like to obtain more information and is willing to go for nonfasting labs today, schedule an upper GI and we did briefly discuss the probable need for repeat upper endoscopy by me to assess her anatomy and appropriateness for surgical planning. I also explained to the patient the need to include her other physicians given her comorbidities and need to coordinate care since this operation is done under general anesthesia. I will see the patient after the workup is complete. Orders: Orders Comprehensive Met. 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, Z86.73 - Personal history of transient ischemic attack (TIA), and cerebral infarction without residual deficits, Z95.0 - Presence of cardiac pacemaker, Z95.2 - Presence of prosthetic heart valve Prealbumin Today G47.33 - Obstructive sleep apnea (adult) (pediatric), I10 - Essential (primary) hypertension, I48.19 - Other persistent atrial fibrillation, I63.9 - Cerebral infarction, unspecified, K44.9 - Diaphragmatic hernia without obstruction or gangrene, 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, Z86.73 - Personal history of transient ischemic attack (TIA), and cerebral infarction without residual deficits, Z95.0 - Presence of cardiac pacemaker, Z95.2 - Presence of prosthetic heart valve Prothrombin Time INR Today G47.33 - Obstructive sleep apnea (adult) (pediatric), I10 - Essential (primary) hypertension, I48.19 - Other persistent atrial fibrillation, I63.9 - Cerebral infarction, unspecified, K44.9 - Diaphragmatic hernia without obstruction or gangrene, Z79.01 - correction (current) use of anticoagulants, Z86.73 - Personal history of transient ischemic attack (TIA), and cerebral infarction without residual deficits, Z95.0 - Presence of cardiac pacemaker, Z95.2 - Presence of prosthetic heart valve Partial Thromboplastin Time Today B20 - Human immunodeficiency virus [HIV] disease, G47.33 - Obstructive sleep apnea (adult) (pediatric), I10 - Essential (primary) hypertension, I48.19 - Other persistent atrial fibrillation, I63.9 - Cerebral infarction, unspecified, K44.9 - Diaphragmatic hernia without obstruction or gangrene, 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, Z86.73 - Personal history of transient ischemic attack (TIA), and cerebral infarction without residual deficits, Z95.0 - Presence of cardiac pacemaker, Z95.2 - Presence of prosthetic heart valve Complete Blood Count Auto Diff Today G47.33 - Obstructive sleep apnea (adult) (pediatric), I10 - Essential (primary) hypertension, I48.19 - Other persistent atrial fibrillation, I63.9 - Cerebral infarction, unspecified, K44.9 - Diaphragmatic hernia without obstruction or gangrene, Z79.01 - correction (current) use of anticoagulants, Z86.73 - Personal history of transient ischemic attack (TIA), and cerebral infarction without residual deficits, Z95.0 - Presence of cardiac pacemaker, Z95.2 - Presence of prosthetic heart valve FL upper GI series Today G47.33 - Obstructive sleep apnea (adult) (pediatric), I10 - Essential (primary) hypertension, I48.19 - Other persistent atrial fib rillation, I63.9 - Cerebral infarction, unspecified, K44.9 - Diaphragmatic hernia without obstruction or gangrene, Z79.01 - correction (current) use of anticoagulants, Z86.73 - Personal history of transient ischemic attack (TIA), and cerebral infarction without residual deficits, Z95.0 - Presence of cardiac pacemaker, Z95.2 - Presence of prosthetic heart valve Hemoglobin A1c Today R73.9 - Hyperglycemia, unspecified Coding Level of Care Code New Pt Level 4 (20430) Diagnoses Hiatal hernia K44.9 Anticoagulated Z79.01 Status post transcatheter aortic valve replacement Z95.2 Essential hypertension I10 MAXWELL (obstructive sleep apnea) G47.33 Normally functioning cardiac pacemaker present Z95.0 Persistent atrial fibrillation I48.19 Embolic stroke I63.9 Breast cancer C50.919 Non-rheumatic aortic stenosis I35.0 History of stroke Z86.73
[2022-11-13 13:19] VITALS: BP 130/60; PULSE 82; TEMP 36.4; O2SAT 96; BMI 23.7
== END 2022-11-13 15:45 | disposition home or self-care (01) ==
PROVIDERS: PCP Family Medicine; Referring Provider Family Medicine; Visit Provider Surgery
DX: K44.9 Diaphragmatic hernia without obstruction or gangrene (principal); Z79.01 Long term (current) use of anticoagulants; Z95.2 Presence of prosthetic heart valve; I10 Essential (primary) hypertension; G47.33 Obstructive sleep apnea (adult) (pediatric); Z95.0 Presence of cardiac pacemaker; I48.19 Other persistent atrial fibrillation; I63.9 Cerebral infarction, unspecified; C50.919 Malignant neoplasm of unspecified site of unspecified female breast; I35.0 Nonrheumatic aortic (valve) stenosis; Z86.73 Personal history of transient ischemic attack (TIA), and cerebral infarction without residual deficits
CPT/HCPCS: 99204

== ENCOUNTER 2022-11-13 13:11 | Outpatient (REF) | payer MEDICARE, SELFPAY ==
[2022-11-13 14:41] LABS: MANUAL DIFF FLAG NO
[2022-11-13 14:55] LABS: Basophils Absolute Auto 0.1 X10*3/uL (0.0-0.2); Basophils Percent Auto 0.5 % (0-2); Eosinophils Absolute Auto 0.4 X10*3/uL (0.0-0.4); Hematocrit 44.9 % (37.0-47.0); Hemoglobin 14.2 g/dl (12.0-16.0); Imm Gran Abs Auto 0.03 X10*3/uL (0.00-0.03); Imm Gran Pct Auto 0.2 % (0.0-0.4); Lymphocytes Absolute Auto 3.4 X10*3/uL (1.2-4.9); Lymphocytes Percent Auto 26.4 % (20-40); Mean Corpuscular HGB Conc 31.6 g/dl (31.0-35.0); Mean Platelet Volume 9.8 fL (9.4-12.3); Monocytes Absolute Auto 1.1 X10*3/uL (0.1-1.2); Neutrophils Absolute Auto 7.8 x10*3/uL (2.0-8.3); Neutrophils Percent Auto 60.9 % (45-73); Platelet Count 274 X10*3/uL (160-400); Red Blood Count 4.58 X10*6/uL (4.20-5.50); Red Cell Distribution Width 13.3 % (11.0-16.0); White Blood Count 12.7 X10*3/uL (4.8-10.8)
[2022-11-13 15:07] LABS: Estimated Average Glucose 120 mg/dL; Hemoglobin A1C 148.4285 umol/L; Hemoglobin A1c % 5.8 % (<6.0); INTERNATIONAL NORM RATIO 1.2 (0.9-1.1); Prothrombin Time 15.1 SEC (11.1-13.3)
[2022-11-13 15:10] LABS: Partial Thromboplastin Time 33.4 SEC (26.0-36.4)
[2022-11-13 16:09] LABS: Alanine Aminotransferase 10 U/L (0-31); Albumin Level 4.1 g/dL (3.5-5.0); Alkaline Phosphatase 83 U/L (39-117); Anion Gap 12 (12-20); Aspartate Amino Transferase 18 U/L (5-31); Bilirubin Total 0.8 mg/dL (0.0-1.0); Blood Urea Nitrogen 12 mg/dL (9-16); Calcium 9.7 mg/dL (8.4-10.2); Carbon Dioxide 25 mmol/L (22-29); Chloride 110 mmol/L (96-108); Estimated Glomerular Filt Rate > 60; Glucose Random 98 mg/dL (60-115); Potassium 4.4 mmol/L (3.3-5.1); Sodium 143 mmol/L (135-145)
[2022-11-13 16:25] LABS: TSH reflex Free T4 2.01 uIU/mL (0.32-4.0); Vitamin D 25-OH Total 31.9 ng/mL (>30)
[2022-11-13 16:37] LABS: Folate 9.7 ng/mL (> or = 4.0); Vitamin B12 404 pg/mL (200-900)
[2022-11-13 16:41] LABS: Digoxin 1.2 ng/mL (0.8-2.0)
== END 2022-11-13 13:12 | disposition home or self-care (01) ==
LOC: HO.LAB 13:11
PROVIDERS: PCP Family Medicine; Referring Provider Family Medicine; Visit Provider Surgery
DX: Z00.00 Encounter for general adult medical examination without abnormal findings (principal); E55.9 Vitamin D deficiency, unspecified; E53.8 Deficiency of other specified B group vitamins; R73.9 Hyperglycemia, unspecified; B20 Human immunodeficiency virus [HIV] disease; K21.9 Gastro-esophageal reflux disease without esophagitis; K44.9 Diaphragmatic hernia without obstruction or gangrene; I10 Essential (primary) hypertension; G47.33 Obstructive sleep apnea (adult) (pediatric); Z95.0 Presence of cardiac pacemaker; I48.19 Other persistent atrial fibrillation; C50.919 Malignant neoplasm of unspecified site of unspecified female breast; I35.0 Nonrheumatic aortic (valve) stenosis; Z79.01 Long term (current) use of anticoagulants; Z86.73 Personal history of transient ischemic attack (TIA), and cerebral infarction without residual deficits; Z95.2 Presence of prosthetic heart valve; Z79.899 Other long term (current) drug therapy
CPT/HCPCS: 36415; 80053; 80162; 82306; 82607; 82746; 83036; 84134; 84443; 85025; 85610; 85730; 99202

== ENCOUNTER 2022-12-04 13:06 | Outpatient (AMB) | payer MEDICARE, SELFPAY ==
[2022-12-04 13:08] VITALS: BP 136/70; PULSE 65; BMI 25.2
--- NOTE | 2022-12-04 13:08 | A.OFFVIS_ITS ---
Intake Vital Signs 12/04/22 13:08 Height 5 ft Weight 129 lb 3.054 oz BMI 25.2 BP 136/70 Blood Pressure Location Lt brachial Position Sitting Pulse 65 Intake Visit Reasons: R/S follow up Intake Note: follow up Chlorine Cells Operator Required: No Accompanied by: Self / Same As Patient Allergies Seasonal Allergies Allergy (Verified 12/04/22 13:11) Runny Nose Medication List - Last Reconciled 12/04/22 by Russell Ellis MD apixaban (Eliquis) 2.5 mg PO BID aspirin 81 mg PO DAILY atorvastatin 80 mg PO QPM coQ10 (ubiquinol) 200 mg PO DAILY digoxin (Digox) 125 mcg PO DAILY diltiazem HCl 240 mg PO DAILY lisinopril 2.5 mg PO DAILY metoprolol succinate ER (Toprol XL) 75 mg (3 x 25 mg) PO DAILY 90 days turmeric (bulk) 95% (Curcumin) 300 ea miscellaneous DAILY HPI HPI Comments History of Present Illness Details Lora returns for follow-up regarding various cardiac issues including aortic stenosis, atrial fibrillation, hypertension among others. She underwent transcatheter aortic valve replacement. Overall, she is doing good. No cardiac symptoms at this time. [facility] Medical History Breast cancer, left Embolic stroke Heart murmur HTN (hypertension) Hypercholesterolemia Iron deficiency anemia Non-rheumatic aortic stenosis Pacemaker PAF (paroxysmal atrial fibrillation) Persistent atrial fibrillation Stroke Tachycardia Surgical History Status post transcatheter aortic valve replacement Hx of colonoscopy Hx of tonsillectomy Hx of hysterectomy History of lumpectomy of left breast Hx of foot surgery Family History Brother Hodgkin lymphoma Father Colon cancer Social History Household Members: None Housing: House Alcohol intake: current Alcohol intake frequency: holidays/special occasions only Alcohol type: other Patient Tobacco Use Status: Former Tobacco user e-Cigarette/Vaping Use: Never Used service: No Current occupational status: retired Cognitive needs: No Hearing needs: No Vision needs: No Review of Systems Const Denies weakness ENT Denies dizziness Card Denies chest pain, Denies chest pain with activity, Denies syncope, Denies rapid heart rate, Denies pedal edema, Denies edema, Denies leg edema, Denies lightheadedness, Denies palpitations, Denies dyspnea, Denies dyspnea on exertion and Denies orthopnea Resp Denies cough, Denies dyspnea and Denies dyspnea on exertion GI Denies hematochezia and Denies change in stool character Musc Denies abnormal gait, Denies muscle cramps, Denies muscle weakness, Denies numbness, Denies radiating pain into limb and Denies tingling Neuro Denies abnormal gait, Denies dizziness, Denies syncope, Denies numbness, Denies tingling and Denies weakness Endo Denies palpitations Physical Exam Vital Signs: Last Vital Signs Pulse 65 12/04/22 13:08 BP 136/70 12/04/22 13:08 BMI result Body Mass Index 25.2 Const General: comfortable and no acute distress Orientation/consciousness: patient oriented x3 HEENT Other: Unremarkable Head: Yes normal to inspection Neck Neck: Yes normal visual inspection Chest Chest palpation & inspection: normal inspection of the chest Resp Auscultation: clear to auscultation bilaterally Cardio Palpation: normal PMI Heart sounds: S1 normal heart sound present, S2 normal heart sound present, no gallops, Murmur heart sound present systolic II/ and at the right sternal border and no rubs GI Palpation (GI): Soft to palpation Back/Spine/Pelvis Other: unremarkable Skin General skin exam: no rashes or lesions noted Neuro General: patient oriented x3 Extrem General: Yes normal to inspection Psych Mental Status: mental status grossly normal Office Procedures EKG Details: EKG with atrial fibrillation, intermittent V pacing, 65/min. [id number], Complete Assessment & Plan Assessment & Plan (1) Persistent atrial fibrillation: Code(s): I48.19 - Other persistent atrial fibrillation Plan: Continue rate control medications including metoprolol, diltiazem and digoxin. Most recent digoxin level is 1.2 but it seems she took the does few hours prior to that. Per patient, she had another level done elsewhere and was told it was 0.7. No changes at this time. Continue anticoagulation. (2) Status post transcatheter aortic valve replacement: Code(s): Z95.2 - Presence of prosthetic heart valve Plan: Status post TAVR. Preop cardiac catheterization did not show any significant coronary disease. Echocardiogram with normally functioning bioprosthetic aortic valve. Usual infective endocarditis prophylaxis. Continue aspirin. (3) Embolic stroke: Code(s): I63.9 - Cerebral infarction, unspecified Plan: Per [facility] documentation, less than 50% stenosis of bilateral internal carotids. There was acute cut off of M2 branch of right middle cerebral artery. She remains on anticoagulation. No clear deficits. (4) Essential hypertension: Code(s): I10 - Essential (primary) hypertension Plan: Stable. (5) Normally functioning cardiac pacemaker present: Code(s): Z95.0 - Presence of cardiac pacemaker Plan: Follow remotely. (6) MAXWELL (obstructive sleep apnea): Code(s): G47.33 - Obstructive sleep apnea (adult) (pediatric) Plan: She has mild obstructive sleep apnea. Not interested in CPAP as she states she already does not sleep well. Coding Level of Care Code Est Pt Level 4 (21851) Diagnoses Persistent atrial fibrillation I48.19 Status post transcatheter aortic valve replacement Z95.2 Embolic stroke I63.9 Essential hypertension I10 Normally functioning cardiac pacemaker present Z95.0 MAXWELL (obstructive sleep apnea) G47.33 CPT Codes EKG - CPT: 01376-[id number], Complete ([id number])
== END 2022-12-04 13:39 | disposition home or self-care (01) ==
PROVIDERS: PCP Family Medicine; Referring Provider Family Medicine; Visit Provider Internal Medicine
DX: I48.19 Other persistent atrial fibrillation (principal); Z95.2 Presence of prosthetic heart valve; I63.9 Cerebral infarction, unspecified; I10 Essential (primary) hypertension; Z95.0 Presence of cardiac pacemaker; G47.33 Obstructive sleep apnea (adult) (pediatric)
CPT/HCPCS: 93010; 99214

== ENCOUNTER 2022-12-04 13:06 | Outpatient (REF) | payer MEDICARE, SELFPAY | END 2022-12-04 13:07 | disposition home or self-care (01) | LOC: HO.LAB 13:06 | PROVIDERS: PCP Family Medicine; Visit Provider Family Medicine | DX: I48.19 Other persistent atrial fibrillation (principal); I63.9 Cerebral infarction, unspecified; I10 Essential (primary) hypertension; G47.33 Obstructive sleep apnea (adult) (pediatric); Z95.0 Presence of cardiac pacemaker; Z95.2 Presence of prosthetic heart valve | CPT/HCPCS: 93005; 99212 ==

== ENCOUNTER → 2022-12-24 23:59 | Outpatient (BNV) | payer MEDICARE, SELFPAY ==
--- NOTE | 2022-12-31 15:54 | MHC.OFFVIS ---
Intake Intake Visit Reasons: Remote Device Check- [employer] Allergies Seasonal Allergies Allergy (Verified 12/04/22 13:11) Runny Nose PFSH Medical History Breast cancer, left Embolic stroke Heart murmur HTN (hypertension) Hypercholesterolemia Iron deficiency anemia Non-rheumatic aortic stenosis Pacemaker PAF (paroxysmal atrial fibrillation) Persistent atrial fibrillation Stroke Tachycardia Surgical History Status post transcatheter aortic valve replacement Hx of colonoscopy Hx of tonsillectomy Hx of hysterectomy History of lumpectomy of left breast Hx of foot surgery Family History Brother Hodgkin lymphoma Father Colon cancer Social History Household Members: None Housing: House Alcohol intake: current Alcohol intake frequency: holidays/special occasions only Alcohol type: other Patient Tobacco Use Status: Former Tobacco user e-Cigarette/Vaping Use: Never Used service: No Current occupational status: retired Cognitive needs: No Hearing needs: No Vision needs: No Office Procedures Cardiac Device Check Cardiac Device Check Details: Date of service- 12/24/2022 ; Battery life >10 years; normal lead parameters; AP <0.1 %; 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 Rare rapid rates. Overall normal device function. [id number] Cardiac Device Interrogation, pacemaker Procedure code (CPT) selection complete Assessment & Plan Assessment & Plan (1) Persistent atrial fibrillation: Code(s): I48.19 - Other persistent atrial fibrillation Coding Level of Care Code Procedure Only Diagnoses Persistent atrial fibrillation I48.19 CPT Codes Cardiac Device Check - Cardiac Device 12: [id number] Cardiac Device Interrogation, pacemaker ([id number])
== END ==
PROVIDERS: PCP Family Medicine; Visit Provider Internal Medicine
DX: I48.19 Other persistent atrial fibrillation (principal); Z95.0 Presence of cardiac pacemaker
CPT/HCPCS: 93294

== ENCOUNTER → 2023-01-10 13:00 | Outpatient (REF) | payer MEDICARE, SELFPAY ==
--- NOTE | 2023-01-10 13:03 | CA_ITS ---
Transthoracic Echocardiogram Patient (Last, First, Middle): Lora Herron, Gender: Female Date of : 1940 Age: 82 Procedure Date: 01/10/2023 Procedure Type: Transthoracic Echocardiogram Location: OP Height: 157.48 cm Weight: 57.15 kg BSA: 1.57 m2 Heart Rate: 63 bpm BP: 120 / 64 mmHg Die Equipment Operator: TO Referring MD: Russell Ellis MD Symptoms: Z95.2 - Presence of prosthetic heart valve Study Quality: Adequate ECG Rhythm: Atrial Fibrillation Conclusions: - The left ventricular systolic function is hyperdynamic. The visually estimated ejection fraction is >70%. - A bioprosthetic aortic valve is present. The prosthetic aortic valve appears to be functioning normally. - There is moderate mitral annular calcification. Findings Left Ventricle Normal left ventricular cavity size. There is mildly increased left ventricular wall thickness. The left ventricular systolic function is hyperdynamic. The visually estimated ejection fraction is >70%. There is no evidence of regional wall motion abnormalities. Diastolic function is indeterminate on the basis of available data. There is moderate septal asymmetric hypertrophy. Right Ventricle Normal right ventricular cavity size. There is mildly decreased right ventricular systolic function. Atria The left atrium is moderately dilated. The right atrium is normal in size. Aortic Valve A bioprosthetic aortic valve is present. The prosthetic aortic valve appears to be functioning normally. Trace to mild para-valvular regurgitation. Mitral Valve There is moderate mitral annular calcification. There is mild mitral valve regurgitation. There is no mitral valve stenosis. Pulmonic Valve The pulmonic valve is likely normal. Tricuspid Valve There is mild tricuspid valve regurgitation. There is no evidence of pulmonary hypertension. Great Vessels The asc aorta is normal in size. Venous The inferior vena cava is mildly dilated and collapses less than 50% with inspiration. Pericardium/Pleural There is no evidence of pericardial effusion. Prior Study Comparison No significant change compared to prior study dated: 01/23/2022. Measurements 2D Linear Measurements IVSd: 1.51 0.6-0.9/0.6-1.0 cm LVIDd: 3.68 3.9-5.3/4.2-5.9 cm LVIDd Index: 2.34 2.4-3.2/2.2-3.1 cm/m2 LVIDs: 1.71 2.0-3.6 cm LVPWd: 1.16 0.7-1.1 cm LA Diam: 3.90 2.7-3.8/3.0-4.0 cm LAIDs Index: 2.48 1.5-2.3 cm/m2 LV Mass: 214.46 67-162/88-224 g LV Mass Index: 136.60 43-95/49-115 g/m2 LVOT Diam: 1.80 3.0+(-)1.3 cm Mitral Valve MV VTI: 0.45 MV Pk Dagoberto: 1.71 MV Mn Dagoberto: 0.79 MV Pk Grad: 12.00 MV Mn Grad: 3.00 MV Pk E: 1.53 MV Decel Time: 286.00 E'Lateral: 4.21 E'Medial: 3.91 E/E' Med: 39.10 E/E' Lat: 36.30 PHT: 84.00 MVA PHT: 2.62 MVA Continuity: 1.49 Decel Charlotte: 5.36 Aortic Valve AoV Pk Dagoberto: 2.40 AoV Mn Dagoberto: 1.70 AoV VTI: 0.53 AoV Pk Grad: 23.00 Aov Mn Grad: 13.00 ESTRELLITA Cont.VTI: 1.28 AI Pk Dagoberto: 3.45 AI Charlotte: 1.53 LVOT LVOT Pk Dagoberto: 1.26 LVOT Mn Dagoberto: 0.90 LVOT VTI: 0.26 LVOT Pk Grad: 6.00 LVOT Mn Grad: 4.00 LVOT Diam: 1.80 LVOT Area: 2.54 Diastolic Function MV Pk E: 1.53 E'Medial: 3.91 E/E' Med: 39.10 E' Laterial: 4.21 E/E' Lat: 36.30 Right Ventricle TAPSE (mm): 13.00 TVS' Dagoberto: 7.94 Tricuspid Valve TR Pk Dagoberto: 2.38 TR Pk Grad: 23.00 RA Press: 8.00 RVSP: 31.00 Great Vessels Aorta Ao Asc: 2.80 2.1-3.4 cm Updated in Other Vendor System with Status of Final Russell Ellis MD electronically signed on 01/12/2023 9:37:27 AM with status of Final
== END ==
LOC: HO.CARD 13:00
PROVIDERS: PCP Family Medicine; Visit Provider Internal Medicine
DX: Z95.2 Presence of prosthetic heart valve (principal)
CPT/HCPCS: 93306

== ENCOUNTER → 2023-01-10 13:03 | Outpatient (BNV) | payer MEDICARE, SELFPAY | PROVIDERS: PCP Family Medicine; Visit Provider Internal Medicine | DX: I34.0 Nonrheumatic mitral (valve) insufficiency (principal); I36.1 Nonrheumatic tricuspid (valve) insufficiency | CPT/HCPCS: 93306 ==

== ENCOUNTER 2023-01-21 08:56 | Outpatient (REF) | payer MEDICARE, SELFPAY ==
--- NOTE | ~2023-01-21 | FL_ITS ---
EXAMINATION: XR FLUOROSCOPY UPPER GI WITH AIR CLINICAL INFORMATION: Diaphragmatic hernia COMPARISON: None TECHNIQUE: Fluoroscopic air contrast upper GI examination was performed utilizing standard techniques with thin and thick barium and effervescent granules. Numerous spot images were obtained. FINDINGS: Patient is status post a TAVR and a pacemaker. Moderate thoracic kyphosis is present. Lateral cine images of the oropharynx and hypopharynx demonstrate normal swallow mechanism with normal epiglottic inversion and soft palate elevation. No tracheal penetration, glottic or subglottic aspiration identified. No nasopharyngeal reflux present. Hypopharyngeal structures appear normal without evidence of mass or diverticulum. 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 Dual and single contrast images of the esophagus demonstrate a feline esophageal fold pattern. No evidence of stricture, mass, or ulcerations identified. 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 A large portion of the stomach is noted to be intrathoracic, mainly fundus and proximal body. (Large type III hiatus hernia) No evidence of volvulus is present. No obstruction to the passage of contrast. No significant gastroesophageal reflux was seen during the course of the examination and on reflux views. Dual contrast and single contrast images of the stomach demonstrated normal contour and mucosal pattern without evidence of mass, ulceration, or other abnormality. Contrast freely passed into the gastric antrum and duodenal bulb without delay. Single and air-contrast images of the duodenal bulb demonstrate no abnormality. The duodenal sweep has a normal appearance, course, and mucosal fold appearance. The imaged proximal jejunum has a normal fold pattern and caliber. FLUOROSCOPY TIME: 4 minutes 3 seconds Number of Spot Images: 9 Number of cine: 10 DOSE AREA PRODUCT: 68.46 uGy-m2 (microgray-meter squared) FL/FL upper GI series IMPRESSION: 1. Large portion of stomach is intrathoracic, mainly the fundus and proximal body (Large type III hiatus hernia). No volvulus or obstruction. 2. Significant cricopharyngeal achalasia. 3. Feline esophagus, commonly associated with reflux. 4. Disordered esophageal motility. This procedure was performed by Fabian Ayala PA-C, and supervised by Dr. Madrid
== END 2023-01-21 08:57 | disposition home or self-care (01) ==
LOC: HO.XRAY 08:56
PROVIDERS: PCP Family Medicine; Visit Provider Surgery
DX: Z13.89 Encounter for screening for other disorder (principal)
CPT/HCPCS: 74240

== ENCOUNTER → 2023-01-21 08:58 | Outpatient (BNV) | payer MEDICARE, SELFPAY | PROVIDERS: PCP Family Medicine; Visit Provider Radiology Diagnostic Radiology | DX: K44.9 Diaphragmatic hernia without obstruction or gangrene (principal) | CPT/HCPCS: 74246 ==

== ENCOUNTER 2023-01-21 09:41 | Outpatient (REF) | payer MEDICARE, SELFPAY ==
[2023-01-21 09:56] LABS: MANUAL DIFF FLAG NO
[2023-01-21 10:43] LABS: Appearance Urine Clear; Color Urine Dark Yellow; Glucose Urine UA Negative (Negative); Leukocyte Esterase Urine Small (1+) (Negative); Nitrite Urine Negative (Negative); PH 5.5 (5.0-9.0); Specific Gravity - Urine 1.025 (1.005-1.025); UMIC TRIGGER UA YES; Urine Blood Negative (Negative); Urine Ketones Trace mg/dL (Negative); Urine Protein Negative (Neg-Trace)
[2023-01-21 10:45] LABS: Basophils Absolute Auto 0.1 X10*3/uL (0.0-0.2); Basophils Percent Auto 0.5 % (0-2); Eosinophils Absolute Auto 0.4 X10*3/uL (0.0-0.4); Eosinophils Percent Auto 3.2 % (0-4); Hematocrit 40.9 % (37.0-47.0); Hemoglobin 13.5 g/dl (12.0-16.0); Imm Gran Abs Auto 0.06 X10*3/uL (0.00-0.03); Imm Gran Pct Auto 0.5 % (0.0-0.4); Lymphocytes Absolute Auto 3.1 X10*3/uL (1.2-4.9); Lymphocytes Percent Auto 23.5 % (20-40); Mean Corpuscular Hemoglobin 31.9 pg (27.0-33.0); Mean Corpuscular Volume 96.7 fL (80.0-98.0); Mean Platelet Volume 9.8 fL (9.4-12.3); Monocytes Absolute Auto 1.3 X10*3/uL (0.1-1.2); Monocytes Percent Auto 9.6 % (2-11); Neutrophils Absolute Auto 8.3 x10*3/uL (2.0-8.3); Neutrophils Percent Auto 62.7 % (45-73); Platelet Count 277 X10*3/uL (160-400); Red Blood Count 4.23 X10*6/uL (4.20-5.50); Red Cell Distribution Width 13.2 % (11.0-16.0); White Blood Count 13.3 X10*3/uL (4.8-10.8)
[2023-01-21 10:56] LABS: Bacteria Urine None Seen (None Seen); RBC Urine 0-2 /HPF (0-2)
[2023-01-21 11:28] LABS: Alanine Aminotransferase 10 U/L (0-31); Albumin Level 3.7 g/dL (3.5-5.0); Alkaline Phosphatase 76 U/L (39-117); Anion Gap 15 (12-20); Aspartate Amino Transferase 17 U/L (5-31); Bilirubin Total 0.7 mg/dL (0.0-1.0); Blood Urea Nitrogen 16 mg/dL (9-16); Calcium 9.5 mg/dL (8.4-10.2); Carbon Dioxide 25 mmol/L (22-29); Chloride 109 mmol/L (96-108); Cholesterol 123 mg/dL (<200); Estimated Glomerular Filt Rate 59; Glucose Fasting 113 mg/dL (60-99); HDL Cholesterol 49 mg/dL (>40); LDL Cholesterol Calculated 56 mg/dL (<100); Potassium 4.2 mmol/L (3.3-5.1); Sodium 145 mmol/L (135-145); Total Protein 6.2 g/dL (6.5-8.0); Triglycerides 90 mg/dL (<150)
[2023-01-21 11:40] LABS: Creatinine Urine 230.62 mg/dL; Microalbum/Creatinine Ratio Ur 17.7 ug/mg cr (<30)
== END 2023-01-21 09:42 | disposition home or self-care (01) ==
LOC: HO.LAB 09:41
PROVIDERS: PCP Family Medicine; Visit Provider Family Medicine
DX: Z00.00 Encounter for general adult medical examination without abnormal findings (principal); I10 Essential (primary) hypertension; K44.9 Diaphragmatic hernia without obstruction or gangrene; G47.33 Obstructive sleep apnea (adult) (pediatric); I48.19 Other persistent atrial fibrillation; Z86.73 Personal history of transient ischemic attack (TIA), and cerebral infarction without residual deficits; Z79.01 Long term (current) use of anticoagulants; Z95.0 Presence of cardiac pacemaker; Z95.2 Presence of prosthetic heart valve
CPT/HCPCS: 36415; 74240; 80053; 80061; 81001; 82043; 82570; 85025

== ENCOUNTER 2023-02-04 13:51 | Outpatient (AMB) | payer MEDICARE, SELFPAY ==
--- NOTE | 2023-02-04 13:58 | MHC.OFFVIS ---
Intake Vital Signs 02/04/23 14:04 Height 5 ft 0.75 in Weight 123 lb 0.287 oz BMI 23.4 BP 148/68 H Blood Pressure Location Rt brachial Position Sitting Pulse 88 Pulse Source Pulse Oximeter Temp 96.5 F L Temp Source Tympanic Intake Visit Reasons: fu diaphragmatic hernia Allergies Seasonal Allergies Allergy (Verified 02/04/23 14:05) Runny Nose HPI HPI Comments History of Present Illness Details The patient is an 82-year-old woman who walks with a walker and is referred to discuss a large hiatal hernia that was identified previously. Patient notes that last fall, November 2021, when she was being assessed for a TAVR, she had an MRI of her chest that showed most of my stomach is in my chest. Patient notes that she has previously seen Dr. Hale for colonoscopy and endoscopy but is unclear as to when her last upper endoscopy was performed thinking it was at least 5 years ago. Patient notes a prior history of severe GERD that was managed with omeprazole, however, she states that her upper GI symptoms have resolved and she rarely will take Tums at this point. She has stopped any PPI and reports no GERD, regurgitation, water/sour brash, dysphagia, odynophagia, hematemesis or unexplained weight loss. She is here purely because she was told she has a large hiatal hernia which is asymptomatic but she is concerned about possible complications. In addition to the TAVR last fall, the patient notes a history of atrial fibrillation requiring Eliquis, hypertension, history of an embolic stroke, obstructive sleep apnea, a pacemaker that was placed due to bradycardia, and history of breast cancer in 2013 treated with lumpectomy and axillary dissection. Patient is a former smoker who quit in 1985, she notes her only abdominal operations is a hysterectomy in 1977 for endometriosis and endometrioma. Patient states she was admitted to [facility] earlier this year in Jul, 2022 for presumed bowel obstruction since she was having severe vomiting. There was a CT scan done at that time and I have reviewed the report, but will need to see the images as well as the discharge summary from that hospitalization. GERD questionnaire rates 0 ESS 9 (known MAXWELL & CPAP) [facility] Medical History (Reviewed 02/04/23 @ 14:07 by Flavio Jimenez MD, FACS, [facility]) Persistent atrial fibrillation Embolic stroke PAF (paroxysmal atrial fibrillation) Non-rheumatic aortic stenosis Pacemaker Stroke Tachycardia Iron deficiency anemia Breast cancer, left Heart murmur Hypercholesterolemia HTN (hypertension) Surgical History (Reviewed 02/04/23 @ 14:07 by Flavio Jimenez MD, [facility]) Status post transcatheter aortic valve replacement Hx of colonoscopy Hx of tonsillectomy Hx of hysterectomy History of lumpectomy of left breast Hx of foot surgery Family History Brother Hodgkin lymphoma Father Colon cancer Social History (Reviewed 02/04/23 @ 14:07 by Flavio Jimenez MD, [facility]) Household Members: None Housing: House Alcohol intake: current Alcohol intake frequency: holidays/special occasions only Alcohol type: other Patient Tobacco Use Status: Former Tobacco user e-Cigarette/Vaping Use: Never Used service: No Current occupational status: retired Cognitive needs: No Hearing needs: No Vision needs: No Review of Systems Const All systems reviewed & are unremarkable except as noted in HPI and below Reports as per HPI Physical Exam Vital Signs: Last Vital Signs Temp 96.5 F L 02/04/23 14:04 Pulse 88 02/04/23 14:04 BP 148/68 H 02/04/23 14:04 BMI result Body Mass Index 23.4 On exam, the patient is nontoxic and is in good spirits She utilizes a walker for stability She is anicteric She is frail and kyphotic with interosseous hand muscle wasting No carotid bruits are appreciated and no cervical masses or adenopathy are appreciated Her abdomen is soft and nontender with no appreciated hernias Skin has decreased turgor and is thinned as expected with her age Results Reviewed Results Reviewed: Labs from 07/01/2022 show a normal hemoglobin of 13.5 with normal indices, elevated white count of 12 point 9 and a platelet count of 322 K Patient has a BUN of 15/creatinine of 1.07 and had a sodium of 147 at that visit Diagnostic imaging: UGI Type 3 hiatal hernia is noted The patient is granted permission to contact [facility] to obtain the actual disc with her CT from earlier this year as well as admission record--we are still trying to obtain CT disc for me to review images Chest CT report from [facility] is reviewed and demonstrates a moderate hiatal hernia according to the report Assessment & Plan Assessment & Plan (1) Status post transcatheter aortic valve replacement: Code(s): Z95.2 - Presence of prosthetic heart valve (2) MAXWELL (obstructive sleep apnea): Code(s): G47.33 - Obstructive sleep apnea (adult) (pediatric) (3) Essential hypertension: Code(s): I10 - Essential (primary) hypertension (4) Hiatal hernia: Code(s): K44.9 - Diaphragmatic hernia without obstruction or gangrene (5) Anticoagulated: Code(s): Z79.01 - detention (current) use of anticoagulants (6) Hyperglycemia: Code(s): R73.9 - Hyperglycemia, unspecified (7) History of stroke: Code(s): Z86.73 - Personal history of transient ischemic attack (TIA), and cerebral infarction without residual deficits Plan The patient continues to deny any significant symptoms. She noted that her service member, Dr. Ellis noted that her comorbidities make operative intervention risky. We had a vaughn discussion about the risks of bleeding, infection, cardiac arrhythmia and the unlikely but possible issue could precipitate from her comorbidities during the operation. Patient then noted that she it has no symptoms and question whether or not observation was an option. She had some concerns about gangrene and obstruction of her stomach and we discussed that while this is unlikely, I cannot predict her future. Given her concerns & comorbidities the option of continued observation was discussed and the patient would prefer this at this time. Patient is convinced that the hernia has been present for at least 30 years and since she is having problem she would like to consider all options. I will see her back in a few months; or reaching out to [facility] again for copy of the disc. If she has any symptoms, she will contact me. Coding Level of Care Code Est Pt Level 4 (21659) Diagnoses Status post transcatheter aortic valve replacement Z95.2 MAXWELL (obstructive sleep apnea) G47.33 Essential hypertension I10 Hiatal hernia K44.9 Anticoagulated Z79.01 Hyperglycemia R73.9 History of stroke Z86.73
[2023-02-04 14:04] VITALS: BP 148/68; PULSE 88; TEMP 35.8; BMI 23.4
== END 2023-02-04 14:31 | disposition home or self-care (01) ==
PROVIDERS: PCP Family Medicine; Visit Provider Surgery
DX: Z95.2 Presence of prosthetic heart valve (principal); G47.33 Obstructive sleep apnea (adult) (pediatric); I10 Essential (primary) hypertension; K44.9 Diaphragmatic hernia without obstruction or gangrene; Z79.01 Long term (current) use of anticoagulants; R73.9 Hyperglycemia, unspecified; Z86.73 Personal history of transient ischemic attack (TIA), and cerebral infarction without residual deficits
CPT/HCPCS: 99214

== ENCOUNTER → 2023-02-04 13:51 | Outpatient (BNVA) | payer MEDICARE, SELFPAY | PROVIDERS: PCP Family Medicine; Visit Provider Surgery | DX: K44.9 Diaphragmatic hernia without obstruction or gangrene (principal); G47.33 Obstructive sleep apnea (adult) (pediatric); I10 Essential (primary) hypertension; R73.9 Hyperglycemia, unspecified; Z79.01 Long term (current) use of anticoagulants; Z86.73 Personal history of transient ischemic attack (TIA), and cerebral infarction without residual deficits; Z95.2 Presence of prosthetic heart valve | CPT/HCPCS: 99212 ==

== ENCOUNTER 2023-02-19 11:27 | Outpatient (AMB) | payer MEDICARE, SELFPAY ==
--- NOTE | 2023-02-19 11:33 | MHC.PC.OV ---
Vital Signs 02/19/23 11:38 Height 5 ft 0.75 in Weight 126 lb BMI 24.0 BP 130/78 Blood Pressure Location Lt brachial Position Supine Pulse 77 Pulse Source Pulse Oximeter Pulse Oximetry (%) 97 Oxygen Delivery Method Room Air Intake Visit Reasons: Extended exam with f/u labs and health maintenance Intake Note: Patient is here for extended exam with follow up on labs and health maintenance. Allergies Seasonal Allergies Allergy (Verified 02/19/23 11:40) Runny Nose Medication List - Last Reconciled 02/19/23 by Hansel Gerber MD apixaban (Eliquis) 2.5 mg PO BID aspirin 81 mg PO DAILY atorvastatin 80 mg PO QPM coQ10 (ubiquinol) 200 mg PO DAILY digoxin (Digox) 125 mcg PO DAILY diltiazem HCl 240 mg PO DAILY 90 days lisinopril 2.5 mg PO DAILY metoprolol succinate ER (Toprol XL) 75 mg (3 x 25 mg) PO DAILY 90 days turmeric (bulk) 95% (Curcumin) 300 ea miscellaneous DAILY Tobacco use date assessed: 02/19/23 Fall risk assessment: No Falls in past year Last assessed Fall Risk: 02/19/23 Dental Screening Dental Screen Date: 02/19/23 Did you have a dental visit in the last 12 months?: No Did you have a dental problem in the last 6 months where you did not have access to dental care?: No Was dental information given to patient?: Patient has dentist HPI Extended exam with f/u labs and health maintenance HPI Details 83 y/o female presents for an extended exam with f/u labs and health maintenance. Labs were drawn 01/21/23. Reviewed labs with pt. Ongoing elevated white count. Elevated fasting glucose of 113 and A1c 5.8% in October. Triglycerides 90. TC 123. LDL 56. HDL 49. Pt reports she has mild sleep apnea. She currently declines any referrals to sleep medicine. HPI Comments History of Present Illness Details Documentation assistance for Hansel Gerber MD, was provided by Percy Walls, Venetian Blind Machine Operator on 02/19/2023 12:19 PM CRISTINO. Ruby, Dr. Gerber, have read, observed, and verified documentation. [facility] Medical History Persistent atrial fibrillation Embolic stroke PAF (paroxysmal atrial fibrillation) Non-rheumatic aortic stenosis Pacemaker Stroke Tachycardia Iron deficiency anemia Breast cancer, left Heart murmur Hypercholesterolemia HTN (hypertension) Surgical History (Reviewed 02/04/23 @ 14:07 by Flavio Jimenez MD, [facility], [facility]) Status post transcatheter aortic valve replacement Hx of colonoscopy Hx of tonsillectomy Hx of hysterectomy History of lumpectomy of left breast Hx of foot surgery Family History Brother Hodgkin lymphoma Father Colon cancer Social History Household Members: None Housing: House Alcohol intake: current Alcohol intake frequency: holidays/special occasions only Alcohol type: other Patient Tobacco Use Status: Former Tobacco user e-Cigarette/Vaping Use: Never Used service: No Current occupational status: retired Cognitive needs: No Hearing needs: No Vision needs: No Questionnaire DOMONIQUE-7 AMB Questionnaire DOMONIQUE-7 Date DOMONIQUE - 7 assessed: 10/16/22 Source: Developed by Drs. Marvin Rodas, Zehra Cartwright, Bandar Freeman and colleagues, with an educational josselin from [employer]. Review of Systems Const Denies chills, Denies fatigue, Denies fever(s), Denies headache(s) and Denies weakness Eyes Denies change in vision ENT Denies dizziness, Denies headache(s), Denies hearing loss, Denies nasal congestion, Denies sinus pain, Denies sinus pressure and Denies sore throat Card Denies chest pain, Denies lightheadedness, Denies dyspnea and Denies other (palpitations) Resp Denies cough, Denies dyspnea and Denies wheezing GI Denies abdominal pain, Denies melena, Denies hematochezia, Denies change in bowel habits, Denies dyspepsia and Denies nausea Denies hematuria and Denies dysuria Musc Denies abnormal gait, Denies myalgias, Denies arthralgias, Denies numbness and Denies tingling Skin/Breast Denies rash, Denies unusual bruising and Denies wounds Neuro Denies abnormal gait, Denies dizziness, Denies headache(s), Denies memory loss, Denies numbness, Denies Sensory deficit (Neuro), Denies tingling and Denies weakness Psych Denies anxiety, Denies depression and Denies memory loss Endo Denies cold intolerance, Denies fatigue, Denies heat intolerance, Denies polydipsia and Denies polyuria David/Lymph Denies easy bleeding and Denies easy bruising Aller/Immun Denies wheezing Physical exam (Primary Care) Vital Signs: Last Vital Signs Pulse 77 02/19/23 11:38 BP 130/78 02/19/23 11:38 Pulse Ox 97 02/19/23 11:38 Oxygen Delivery Method Room Air 02/19/23 11:38 BMI result Body Mass Index 24.0 Tobacco/Smoking Status: Tobacco use Status Tobacco use date assessed 02/19/23 02/19/23 11:44 Patient Tobacco Use Status Former Tobacco user 02/19/23 11:34 e-Cigarette/Vaping Use Never Used 02/19/23 11:34 Const General: no acute distress, well developed, alert and awake Nutritional Appearance: well nourished Orientation/consciousness: patient oriented x3 HENMT Head: Yes normocephalic and Yes atraumatic Ears: hearing grossly normal bilaterally and TM's normal bilaterally General nose exam: Normal external nose present and Normal nares present Mouth: Normal oral and palatal mucosa present and moist mucous membranes Teeth and gingiva: dentition normal Throat: Yes posterior oropharynx normal Eyes General: appearance normal, both eyes and all related structures Pupils: Equal, round and reactive pupils present and Pupil accommodation reflex normal EOM: EOMs intact bilaterally Neck Neck: Yes normal visual inspection, Yes no lymphadenopathy and Yes trachea midline Thyroid: Thyroid normal Carotids: no bruits Lymphatic: no lymphadenopathy noted Chest Chest palpation & inspection: normal inspection of the chest Resp Effort & Inspection: normal respiratory effort Auscultation: clear to auscultation bilaterally Cardio Rate: regular rate Rhythm: regular rhythm Heart sounds: S1 normal heart sound present, S2 normal heart sound present, no gallops, no murmurs and no rubs Bruits: no abdominal aortic bruits and no carotid bruits GI Palpation (GI): No Abdominal aortic bruit present, Soft to palpation, nontender, No hepatosplenomegaly present and No Rebound tenderness present Auscultation: normal bowel sounds General: Yes no CVA tenderness Back/Spine/Pelvis Back: no CVA tenderness Cervical Spine: cervical ROM normal and No Cervical spine tenderness Thoracic/Lumbar Spine: thoraco-lumbar ROM normal, No pain with thoraco-lumbar ROM, No thoracic spinal tenderness and No lumbar spinal tenderness Skin Lesions: no lesions Rashes: no rashes Trauma: no lacerations or abrasions Wounds: no wounds Nails: normal Neuro General: patient oriented x3 Cranial nerves: Yes Equal, round and reactive pupils present Cognition (Neuro): normal cognition Gait exam (Neuro): gait abnormal and Assisted gait required Gait assisted method: walker Motor exam (neuro): strength not 5/5 throughout Sensory Exam: No Sensory deficit (Neuro) Deep tendon reflexes (DTR's): Right patellar reflex intensity grade: 2+ and Left patellar reflex intensity grade: 2+ Extrem General: Yes normal to inspection and No edema Psych Appearance: grossly normal Affect: normal affect Attitude: cooperative Thought process: Normal thought process present Assessment and Plan Assessment & Plan (1) Essential hypertension: Code(s): I10 - Essential (primary) hypertension Plan: Blood?pressure?is?fairly?well?controlled.??Goal?is?less?than?130/80 Continue?current?medication?regimen (2) Pre-diabetes: Code(s): R73.03 - Prediabetes Plan: Encouraged?a?diet?low?in?sugars?and?starches (3) Persistent atrial fibrillation: Code(s): I48.19 - Other persistent atrial fibrillation Plan: Stable?on?Eliquis, diltiazem, metoprolol?and?digoxin. Continue?current?medication?regimen Follow-up?with?Cardiology?as?recommended (4) Elevated WBC count: Code(s): D72.829 - Elevated white blood cell count, unspecified Plan: Persistent?mild?WBC?elevation.??Patient?says?she?is?had?this?workup?in?the?past. No?significant shifts Her?other?cell?lines?are?within?normal?limits We?can?follow?this (5) Non-rheumatic aortic stenosis: Code(s): I35.0 - Nonrheumatic aortic (valve) stenosis Plan: Stable Follow-up?with?Cardiology?as?recommended (6) Hiatal hernia: Code(s): K44.9 - Diaphragmatic hernia without obstruction or gangrene Plan: Patient?has?seen?gastroenterology?and?surgery?and?they?are?recommending?observation?at?this?time?rather?than?surgery Control?symptoms Can?consider?omeprazole?if?having?significant?symptoms?though?currently?no?complaints. Follow-up?with?GI?as?recommended (7) Sleep apnea: Code(s): G47.30 - Sleep apnea, unspecified Plan: Had?referred?patient?to?Sleep?Medicine?but?she?now?declines?this. Recommend?she?use?a?wedge?pillow?to?sleep?off?of?her?back?has?tolerated (8) Unsteady gait: Code(s): R26.81 - Unsteadiness on feet Plan: Fairly?stable?with?her?walker. Continue?to?use?walker?and?can?use?cane?in?home She?will?let?me?know?if?she?has?worsening?lower?extremity?weakness - we?discussed?we?could?refer?her?to?PT?but?she?declines?this?for?now. (9) Osteoporosis: Code(s): M81.0 - Age-related osteoporosis without current pathological fracture Plan: DEXA?scan?ordered. Has?significant?hiatal?hernia?so?would?likely?need?to?avoid?oral?bisphosphonates. Could?refer?her?to?Rheumatology?for?consideration?of?infusion. (10) Adult general medical examination: Code(s): Z00.00 - Encounter for general adult medical examination without abnormal findings Plan: 83-year-old?female?presents?for?an?extended?exam Stable Orders: Orders XR DEXA axial skeleton Today M81.0 - Age-related osteoporosis without current pathological fracture Coding Level of Care Code Est Pt Level 4 (22592) Diagnoses Essential hypertension I10 Pre-diabetes R73.03 Persistent atrial fibrillation I48.19 Elevated WBC count D72.829 Non-rheumatic aortic stenosis I35.0 Hiatal hernia K44.9 Sleep apnea G47.30 Unsteady gait R26.81 Osteoporosis M81.0 Adult general medical examination Z00.00
[2023-02-19 11:38] VITALS: BP 130/78; PULSE 77; O2SAT 97; BMI 24.0
== END 2023-02-19 12:37 | disposition home or self-care (01) ==
PROVIDERS: PCP Family Medicine; Visit Provider Family Medicine
DX: I10 Essential (primary) hypertension (principal); R73.03 Prediabetes; I48.19 Other persistent atrial fibrillation; D72.829 Elevated white blood cell count, unspecified; I35.0 Nonrheumatic aortic (valve) stenosis; K44.9 Diaphragmatic hernia without obstruction or gangrene; G47.30 Sleep apnea, unspecified; R26.81 Unsteadiness on feet; M81.0 Age-related osteoporosis without current pathological fracture; Z00.00 Encounter for general adult medical examination without abnormal findings
CPT/HCPCS: 99214

== ENCOUNTER → 2023-03-25 23:59 | Outpatient (BNV) | payer MEDICARE, SELFPAY ==
--- NOTE | 2023-03-25 15:41 | A.OFFVIS_ITS ---
Intake Intake Visit Reasons: Remote Device Check- Medtronic Allergies Seasonal Allergies Allergy (Verified 02/19/23 11:40) Runny Nose PFSH Medical History Persistent atrial fibrillation Embolic stroke PAF (paroxysmal atrial fibrillation) Non-rheumatic aortic stenosis Pacemaker Stroke Tachycardia Iron deficiency anemia Breast cancer, left Heart murmur Hypercholesterolemia HTN (hypertension) Surgical History Status post transcatheter aortic valve replacement Hx of colonoscopy Hx of tonsillectomy Hx of hysterectomy History of lumpectomy of left breast Hx of foot surgery Family History Brother Hodgkin lymphoma Father Colon cancer Social History Household Members: None Housing: House Alcohol intake: current Alcohol intake frequency: holidays/special occasions only Alcohol type: other Patient Tobacco Use Status: Former Tobacco user e-Cigarette/Vaping Use: Never Used service: No Current occupational status: retired Cognitive needs: No Hearing needs: No Vision needs: No Office Procedures Cardiac Device Check Cardiac Device Check Details: Date of service- 03/25/2023 ; Battery life >10years; normal lead parameters; AP <0.1%; 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 Overall normal device function. [id number] Cardiac Device Interrogation, pacemaker Procedure code (CPT) selection complete Assessment & Plan Assessment & Plan (1) Persistent atrial fibrillation: Code(s): I48.19 - Other persistent atrial fibrillation (2) Embolic stroke: Code(s): I63.9 - Cerebral infarction, unspecified Plan x Coding Level of Care Code Procedure Only Diagnoses Persistent atrial fibrillation I48.19 Embolic stroke I63.9 CPT Codes Cardiac Device Check - Cardiac Device 12: [id number] Cardiac Device Interrogation, pacemaker ([id number])
== END ==
PROVIDERS: PCP Family Medicine; Visit Provider Internal Medicine
DX: I48.19 Other persistent atrial fibrillation (principal); Z95.0 Presence of cardiac pacemaker
CPT/HCPCS: 93294

== ENCOUNTER → 2023-06-23 23:59 | Outpatient (BNV) | payer MEDICARE, SELFPAY ==
--- NOTE | 2023-06-25 11:10 | A.OFFVIS_ITS ---
Intake Intake Visit Reasons: Remote Device Check- Medtronic Allergies Seasonal Allergies Allergy (Verified 02/19/23 11:40) Runny Nose PFSH Medical History Persistent atrial fibrillation Embolic stroke PAF (paroxysmal atrial fibrillation) Non-rheumatic aortic stenosis Pacemaker Stroke Tachycardia Iron deficiency anemia Breast cancer, left Heart murmur Hypercholesterolemia HTN (hypertension) Surgical History Status post transcatheter aortic valve replacement Hx of colonoscopy Hx of tonsillectomy Hx of hysterectomy History of lumpectomy of left breast Hx of foot surgery Family History Brother Hodgkin lymphoma Father Colon cancer Social History Household Members: None Housing: House Alcohol intake: current Alcohol intake frequency: holidays/special occasions only Alcohol type: other Patient Tobacco Use Status: Former Tobacco user e-Cigarette/Vaping Use: Never Used service: No Current occupational status: retired Cognitive needs: No Hearing needs: No Vision needs: No Office Procedures Cardiac Device Check Cardiac Device Check Details: Date of service- 06/23/2023 ; Battery life 10 years; normal lead parameters; AP <0.1%; 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 Overall normal device function. [id number] Cardiac Device Interrogation, pacemaker Procedure code (CPT) selection complete Assessment & Plan Assessment & Plan (1) Persistent atrial fibrillation: Code(s): I48.19 - Other persistent atrial fibrillation Plan x Coding Level of Care Code Procedure Only Diagnoses Persistent atrial fibrillation I48.19 CPT Codes Cardiac Device Check - Cardiac Device 12: [id number] Cardiac Device Interrogation, pacemaker ([id number])
== END ==
PROVIDERS: PCP Family Medicine; Visit Provider Internal Medicine
DX: I48.19 Other persistent atrial fibrillation (principal); Z95.0 Presence of cardiac pacemaker
CPT/HCPCS: 93294

== ENCOUNTER 2023-06-30 14:07 | Outpatient (AMB) | payer MEDICARE, SELFPAY ==
[2023-06-30 14:26] VITALS: BP 130/72; PULSE 87; BMI 25.1
--- NOTE | 2023-06-30 14:26 | A.OFFVIS_ITS ---
Intake Vital Signs 06/30/23 14:26 Height 5 ft 0.7 in Weight 131 lb 6.328 oz BMI 25.1 BP 130/72 Blood Pressure Location Lt brachial Position Sitting Pulse 87 Pulse Source Pulse Oximeter Intake Visit Reasons: 6 mth fu w/ Medtronic Spinneret Cleaner Required: No Allergies Seasonal Allergies Allergy (Verified 06/30/23 14:28) Runny Nose Medication List - Last Reconciled 06/30/23 by Grace Murguia, GHULAM-C apixaban (Eliquis) 2.5 mg PO BID aspirin 81 mg PO DAILY atorvastatin 80 mg PO QPM coQ10 (ubiquinol) 200 mg PO DAILY digoxin (Digox) 125 mcg PO DAILY diltiazem HCl CD 240 mg PO DAILY 90 days lisinopril 2.5 mg PO DAILY metoprolol succinate ER (Toprol XL) 75 mg (3 x 25 mg) PO DAILY 90 days turmeric (bulk) 95% (Curcumin) 300 ea miscellaneous DAILY HPI 6 mth fu w/ Medtronic HPI Details Lora is an 83-year-old female past medical history of hypertension, pre diabetes, obstructive sleep apnea, embolic stroke, persistent atrial fibrillation, aortic stenosis status post TAVR, pacemaker who presents for follow-up. Today she reports that she has been noticing some lower leg edema. It is uncomfortable for her. She tried using compression stockings but they were too difficult to put on. No chest discomfort at rest or with activity. No shortness of breath, PND, orthopnea. No palpitations, lightheadedness, presyncope, syncope, falls. No bleeding issues reported. Taking meds as directed. [facility] Medical History (Updated 06/30/23 @ 16:37 by Grace Murguia, GHULAM-C) Persistent atrial fibrillation Embolic stroke PAF (paroxysmal atrial fibrillation) Non-rheumatic aortic stenosis Pacemaker Stroke Tachycardia Iron deficiency anemia Breast cancer, left Heart murmur Hypercholesterolemia HTN (hypertension) Surgical History (Updated 06/30/23 @ 18:07 by Grace Murguia, GHULAM-C) Status post transcatheter aortic valve replacement Hx of colonoscopy Hx of tonsillectomy Hx of hysterectomy History of lumpectomy of left breast Hx of foot surgery Family History Brother Hodgkin lymphoma Father Colon cancer Social History Household Members: None Housing: House Alcohol intake: current Alcohol intake frequency: holidays/special occasions only Alcohol type: other Patient Tobacco Use Status: Former Tobacco user e-Cigarette/Vaping Use: Never Used service: No Current occupational status: retired Cognitive needs: No Hearing needs: No Vision needs: No Review of Systems Const All systems reviewed & are unremarkable except as noted in HPI and below ENT Denies dizziness Card Details: lower leg swelling Denies chest pain, Denies chest pain at rest, Denies chest pain with activity, Denies rapid heart rate, Reports pedal edema, Denies edema, Denies leg edema, Denies lightheadedness, Denies palpitations, Reports dyspnea, Denies dyspnea on exertion and Denies orthopnea Resp Denies cough, Reports dyspnea and Denies dyspnea on exertion GI Denies hematochezia and Denies change in stool character Musc Denies abnormal gait, Denies limited range of motion, Denies muscle cramps, Denies muscle weakness, Denies numbness, Denies radiating pain into limb, Denies stiffness and Denies tingling Neuro Denies abnormal gait, Denies dizziness, Denies numbness and Denies tingling Endo Denies palpitations Physical Exam Vital Signs: Last Vital Signs Pulse 87 06/30/23 14:26 BP 130/72 06/30/23 14:26 BMI result Body Mass Index 25.1 Const General: cooperative, healthy appearing, comfortable and no acute distress Orientation/consciousness: patient oriented x3 Neck Neck: Yes normal visual inspection and Yes no JVD Resp Effort & Inspection: normal respiratory effort Auscultation: clear to auscultation bilaterally, no crackles, no rales, no rhonchi and no wheezes Cardio Jugular venous distension: no JVD Rate: regular rate Rhythm: regular rhythm Heart sounds: S1 normal heart sound present, S2 normal heart sound present, no murmurs and no rubs Neuro General: patient oriented x3 Extrem General: Yes normal to inspection and No no pedal edema Psych Appearance: grossly normal Mental Status: mental status grossly normal Speech and movement: Normal speech and movement present Office Procedures Cardiac Device Check Cardiac Device Check Details: Medtronic dual-chamber pacemaker interrogation today., DDDR mode, low rate 60, battery 9.8 years, underlying rhythm AFib, ventricular rates 82-150, a paced less than 0.1% 0.5%, AF 100% RV threshold 0.75 volts at 0.4 milliseconds [id number] Cardiac Device Check, pacemaker dual lead Procedure code (CPT) selection complete Assessment & Plan Assessment & Plan (1) Persistent atrial fibrillation: Code(s): I48.19 - Other persistent atrial fibrillation Plan: Known history of persistent atrial fibrillation. Device check done today shows AFib burden 100%, ventricular rates 82-150, frequently over 100. She denies heart palpitations at this time. She will feel them periodically. She reports compliance with her digoxin, diltiazem and metoprolol. She has been on Eliquis without interruption. No bleeding issues reported. She is due for a digoxin level. Unable to get today as she took her medication a few hours prior to this visit. She is reporting leg edema. Will be checking a BMP and BNP. Plan to review labs then make adjustment in her medications if needed.-- labs completed prior to completion of this note. Creatinine 0.86, GFR greater than 60, BNP 170. Will have her increase metoprolol up to 100 mg daily. Will give her a short course of furosemide to help with her leg edema. Echo is being updated. Cardiology follow-up in 1 month for re-evaluation, sooner if needed (2) Non-rheumatic aortic stenosis: Code(s): I35.0 - Nonrheumatic aortic (valve) stenosis Plan: History of aortic stenosis. She underwent TAVR 11/2021. Last echocardiogram in our system 01/10/2023 shows EF greater than 70%, bioprosthetic AVR functioning normally, moderate mitral annular calcification. She has 2+ pitting edema in her lower extremities bilateral today. She says this has been going on for a few weeks. BNP is mildly elevated. Will be updating her echocardiogram to assess for drop in EF with her elevated AFib rates. (3) Status post transcatheter aortic valve replacement: Comment: 11/2021, TAVR Code(s): Z95.2 - Presence of prosthetic heart valve Plan: As above (4) Edema: Code(s): R60.9 - Edema, unspecified Plan: As above. Lasix 20 mg daily p.r.n. for leg swelling (5) Pacemaker: Comment: 10/05/2019 Code(s): Z95.0 - Presence of cardiac pacemaker Plan: Medtronic dual-chamber pacemaker. Functioning normally on interrogation today. She has remote monitoring. Next office interrogation due in 6 months. Plan Time spent on chart review, documentation, interview and assessment Orders: Orders Comprehensive Met. Panel Today R60.9 - Edema, unspecified B Type Natriuretic Peptide Today R60.9 - Edema, unspecified CA echo transthoracic complete Today I48.19 - Other persistent atrial fibrillation, Z95.2 - Presence of prosthetic heart valve Medications: New furosemide (Lasix) Take 1 tablet daily as needed for leg swelling 20 mg PO DAILY PRN 30 tabs 0RF edema Discontinued metoprolol succinate ER (Toprol XL) Discontinued Reason: Doctor's Order 75 mg (3 x 25 mg) PO DAILY 90 days 270 tabs 3RF I48.19 - Other persistent atrial fibrillation Coding Level of Care Code Est Pt Level 4 (67249) Diagnoses Persistent atrial fibrillation I48.19 Non-rheumatic aortic stenosis I35.0 Status post transcatheter aortic valve replacement Z95.2 Edema R60.9 Pacemaker Z95.0 CPT Codes Cardiac Device Check - Cardiac Device 2: [id number] Cardiac Device Check, pacemaker dual lead ([id number]) Time Spent (min) 28
== END 2023-06-30 15:01 | disposition home or self-care (01) ==
PROVIDERS: PCP Family Medicine; Visit Provider Nurse Practitioner Family
DX: I48.19 Other persistent atrial fibrillation (principal); I35.0 Nonrheumatic aortic (valve) stenosis; Z95.2 Presence of prosthetic heart valve; R60.9 Edema, unspecified; Z95.0 Presence of cardiac pacemaker
CPT/HCPCS: 93280; 99214

== ENCOUNTER 2023-06-30 14:07 | Outpatient (REF) | payer MEDICARE, SELFPAY ==
[2023-06-30 16:09] LABS: B Type Natriuretic Peptide 170 pg/mL (<100)
[2023-06-30 16:14] LABS: Alanine Aminotransferase 10 U/L (0-31); Alkaline Phosphatase 81 U/L (39-117); Anion Gap 13 (12-20); Aspartate Amino Transferase 17 U/L (5-31); Bilirubin Total 0.9 mg/dL (0.0-1.0); Blood Urea Nitrogen 15 mg/dL (9-16); Calcium 9.5 mg/dL (8.4-10.2); Carbon Dioxide 23 mmol/L (22-29); Chloride 111 mmol/L (96-108); Estimated Glomerular Filt Rate > 60; Glucose Random 92 mg/dL (60-115); Potassium 4.7 mmol/L (3.3-5.1); Sodium 142 mmol/L (135-145); Total Protein 6.9 g/dL (6.5-8.0)
== END 2023-06-30 14:08 | disposition home or self-care (01) ==
LOC: HO.LAB 14:07
PROVIDERS: PCP Family Medicine; Visit Provider Nurse Practitioner Family
DX: I10 Essential (primary) hypertension (principal); I35.0 Nonrheumatic aortic (valve) stenosis; I48.19 Other persistent atrial fibrillation; R60.9 Edema, unspecified; Z45.018 Encounter for adjustment and management of other part of cardiac pacemaker; Z86.73 Personal history of transient ischemic attack (TIA), and cerebral infarction without residual deficits; Z79.01 Long term (current) use of anticoagulants; Z79.899 Other long term (current) drug therapy
CPT/HCPCS: 36415; 80053; 83880; 93280; 99212

== ENCOUNTER → 2023-08-11 09:56 | Outpatient (REF) | payer MEDICARE, SELFPAY ==
--- NOTE | 2023-08-11 10:00 | CA_ITS ---
Transthoracic Echocardiogram Patient (Last, First, Middle): Lora Herron, Gender: Female Date of : 1940 Age: 83 Procedure Date: 08/11/2023 Procedure Type: Transthoracic Echocardiogram Location: OP Height: 160.02 cm Weight: 59.88 kg BSA: 1.62 m2 Heart Rate: bpm BP: 110 / 64 mmHg Design Technician: ERICA Referring MD: Grace Murguia GUEST RELATIONS REPRESENTATIVE-C Symptoms: Z95.2 - Presence of prosthetic heart valve Study Quality: Adequate ECG Rhythm: Ventriculary paced rhythm Conclusions: - The left ventricular systolic function is hyperdynamic. The visually estimated ejection fraction is between 65-70%. - The left atrium is severely dilated. - A bioprosthetic aortic valve is present. The prosthetic aortic valve appears to be functioning normally. - There is severe mitral annular calcification. There is mild mitral valve regurgitation. Possible mild mitral stenosis. - There is mild to moderate tricuspid valve regurgitation. - Mild pulmonary hypertension is present. Findings Left Ventricle Normal left ventricular cavity size. There is mildly increased left ventricular wall thickness. The left ventricular systolic function is hyperdynamic. The visually estimated ejection fraction is between 65-70%. Diastolic function is indeterminate on the basis of available data. Right Ventricle Normal right ventricular cavity size. There is mild to moderately decreased right ventricular systolic function. Atria The left atrium is severely dilated. The right atrium is normal in size. Aortic Valve A bioprosthetic aortic valve is present. The prosthetic aortic valve appears to be functioning normally. There is mild aortic valve regurgitation. Trace para-valvular regurgitation. Mitral Valve There is severe mitral annular calcification. There is mild mitral valve regurgitation. Possible mild mitral stenosis. Pulmonic Valve The pulmonic valve is likely normal. Tricuspid Valve There is mild to moderate tricuspid valve regurgitation. Mild pulmonary hypertension is present. Great Vessels The asc aorta and aortic arch are normal in size. Venous The inferior vena cava is mildly dilated and collapses greater than 50% with inspiration. Pericardium/Pleural There is no evidence of pericardial effusion. Prior Study Comparison No significant change compared to prior study dated: 01/10/2023. Measurements 2D Linear Measurements IVSd: 1.08 0.6-0.9/0.6-1.0 cm LVIDd: 4.23 3.9-5.3/4.2-5.9 cm LVIDd Index: 2.61 2.4-3.2/2.2-3.1 cm/m2 LVIDs: 2.53 2.0-3.6 cm LVPWd: 1.12 0.7-1.1 cm LA Diam: 4.40 2.7-3.8/3.0-4.0 cm LAIDs Index: 2.72 1.5-2.3 cm/m2 LV Mass: 197.77 67-162/88-224 g LV Mass Index: 122.08 43-95/49-115 g/m2 LVOT Diam: 1.80 3.0+(-)1.3 cm Mitral Valve MV VTI: 0.47 MV Pk Dagoberto: 1.96 MV Mn Dagoberto: 0.91 MV Pk Grad: 15.00 MV Mn Grad: 5.00 MV Pk E: 1.66 MV Decel Time: 238.00 E'Lateral: 3.33 E'Medial: 3.68 E/E' Med: 45.10 E/E' Lat: 49.80 PHT: 70.00 MVA PHT: 3.14 MVA Continuity: 1.79 Decel [place]: 7.49 Aortic Valve AoV Pk Dagoberto: 2.35 AoV Mn Dagoberto: 1.57 AoV VTI: 0.55 AoV Pk Grad: 22.00 Aov Mn Grad: 12.00 ESTRELLITA Cont.VTI: 1.52 AI Pk Dagoberto: 3.73 AI [place]: 1.61 LVOT LVOT Pk Dagoberto: 1.38 LVOT Mn Dagoberto: 0.99 LVOT VTI: 0.33 LVOT Pk Grad: 8.00 LVOT Mn Grad: 5.00 LVOT Diam: 1.80 LVOT Area: 2.54 Diastolic Function MV Pk E: 1.66 E'Medial: 3.68 E/E' Med: 45.10 E' Laterial: 3.33 E/E' Lat: 49.80 Right Ventricle TAPSE (mm): 12.30 TVS' Dagoberto: 9.33 Tricuspid Valve TR Pk Dagoberto: 2.84 TR Pk Grad: 32.00 RA Press: 8.00 RVSP: 40.00 Great Vessels Aorta Ao Asc: 2.60 2.1-3.4 cm Ao Arch: 2.90 Updated in Other Vendor System with Status of Final Russell Ellis MD electronically signed on 08/12/2023 9:25:27 AM with status of Final
== END ==
LOC: HO.CARD 09:56
PROVIDERS: PCP Family Medicine; Visit Provider Internal Medicine
DX: Z95.2 Presence of prosthetic heart valve (principal); I48.19 Other persistent atrial fibrillation
CPT/HCPCS: 93306

== ENCOUNTER → 2023-08-11 10:00 | Outpatient (BNV) | payer MEDICARE, SELFPAY | PROVIDERS: PCP Family Medicine; Visit Provider Internal Medicine | DX: I36.1 Nonrheumatic tricuspid (valve) insufficiency (principal); I34.81 Nonrheumatic mitral (valve) annulus calcification; I35.1 Nonrheumatic aortic (valve) insufficiency; Z95.2 Presence of prosthetic heart valve | CPT/HCPCS: 93306 ==

== ENCOUNTER 2023-08-19 10:52 | Outpatient (AMB) | payer MEDICARE, SELFPAY ==
[2023-08-19 11:31] VITALS: BP 122/62; PULSE 64; O2SAT 96; BMI 21.7
--- NOTE | 2023-08-19 11:31 | A.OFFPC_ITS ---
Vital Signs 08/19/23 11:31 Height 5 ft 4 in Weight 126 lb 4 oz BMI 21.7 BP 122/62 Blood Pressure Location Lt brachial Position Sitting Pulse 64 Pulse Source Pulse Oximeter Pulse Oximetry (%) 96 Oxygen Delivery Method Room Air Intake Visit Reasons: f/u chronic conditions Intake Note: Patient is here to follow up on chronic conditions today. Allergies Seasonal Allergies Allergy (Verified 08/19/23 11:35) Runny Nose Medication List - Last Reconciled 08/19/23 by Hansel Gerber MD apixaban (Eliquis) 2.5 mg PO BID aspirin 81 mg PO DAILY atorvastatin 80 mg PO QPM coQ10 (ubiquinol) 200 mg PO DAILY digoxin (Digox) 125 mcg PO DAILY diltiazem HCl CD 240 mg PO DAILY 90 days furosemide (Lasix) 20 mg PO DAILY PRN lisinopril 2.5 mg PO DAILY metoprolol succinate ER PO metoprolol succinate ER 75 mg PO DAILY turmeric (bulk) 95% (Curcumin) 300 ea miscellaneous DAILY Tobacco use date assessed: 08/19/23 Fall risk assessment: No Falls in past year Last assessed Fall Risk: 08/19/23 Dental Screening Dental Screen Date: 02/19/23 Did you have a dental visit in the last 12 months?: No Did you have a dental problem in the last 6 months where you did not have access to dental care?: No Was dental information given to patient?: Patient has dentist HPI f/u chronic conditions HPI Details 83 y/o female presents to f/u chronic co nditions. Blood pressure today 122/62. She is on lisinopril 2.5mg, metoprolol 75 mg daily. She continues to f/u with Hematology/Oncology for hx of breast cancer. Had also seen her for cellulitis and pt states cellulitis improved though she does have complaints of ongoing dryness of the skin. She does report a sensation of pins/needles. Pt reports unsteady gait. HPI Comments History of Present Illness Details Documentation assistance for Hansel Gerber MD, was provided by Percy Walls, Records And Tape Recordings Engineer on 08/19/2023 at 12:18 PM EST. I, Dr. Gerber, have read, observed, and verified documentation. [facility] Medical History Persistent atrial fibrillation Embolic stroke PAF (paroxysmal atrial fibrillation) Non-rheumatic aortic stenosis Pacemaker Stroke Tachycardia Iron deficiency anemia Breast cancer, left Heart murmur Hypercholesterolemia HTN (hypertension) Surgical History Status post transcatheter aortic valve replacement Hx of colonoscopy Hx of tonsillectomy Hx of hysterectomy History of lumpectomy of left breast Hx of foot surgery Family History Brother Hodgkin lymphoma Father Colon cancer Social History Household Members: None Housing: House Alcohol intake: current Alcohol intake frequency: holidays/special occasions only Alcohol type: other Patient Tobacco Use Status: Former Tobacco user e-Cigarette/Vaping Use: Never Used service: No Current occupational status: retired Cognitive needs: No Hearing needs: No Vision needs: No Questionnaire DOMONIQUE-7 AMB Questionnaire DOMONIQUE-7 Date DOMONIQUE - 7 assessed: 10/16/22 Source: Developed by Drs. Marvin Rodas, Zehra Cartwright, Bandar Freeman and colleagues, with an educational josslein from [employer]. Review of Systems Const Denies chills, Denies fatigue, Denies fever(s), Denies headache(s) and Denies weakness ENT Denies dizziness and Denies headache(s) Card Denies chest pain, Denies lightheadedness, Denies dyspnea and Denies other (Palpitations) Resp Denies cough, Denies dyspnea, Denies wheezing and Denies other ( shortness of breath) Musc Denies numbness and Denies tingling Neuro Denies dizziness, Denies headache(s), Denies numbness, Denies tingling, Denies paresthesias and Denies weakness Psych Denies anxiety and Denies depression Endo Denies fatigue Aller/Immun Denies wheezing Physical exam (Primary Care) Vital Signs: Last Vital Signs Pulse 64 08/19/23 11:31 BP 122/62 08/19/23 11:31 Pulse Ox 96 08/19/23 11:31 Oxygen Delivery Method Room Air 08/19/23 11:31 BMI result Body Mass Index 21.7 Tobacco/Smoking Status: Tobacco use Status Tobacco use date assessed 08/19/23 08/19/23 11:41 Patient Tobacco Use Status Former Tobacco user 08/19/23 11:41 e-Cigarette/Vaping Use Never Used 08/19/23 11:41 Const General: no acute distress and well developed Nutritional Appearance: well nourished Orientation/consciousness: patient oriented x3 HENMT Head: Yes normocephalic and Yes atraumatic Eyes General: appearance normal, both eyes and all related structures Pupils: Equal, round and reactive pupils present EOM: EOMs intact bilaterally Resp Effort & Inspection: normal respiratory effort Auscultation: clear to auscultation bilaterally Cardio Rate: regular rate Rhythm: regular rhythm Heart sounds: S1 normal heart sound present, S2 normal heart sound present, no gallops, Murmur heart sound present and no rubs Neuro General: patient oriented x3 and No gait normal Cranial nerves: Yes Equal, round and reactive pupils present Psych Affect: normal affect Assessment and Plan Assessment & Plan (1) Essential hypertension: Code(s): I10 - Essential (primary) hypertension Plan: Blood?pressure?is?controlled.??Goal?is?less?than?130/80 Continue?current?medication?regimen (2) Edema: Code(s): R60.9 - Edema, unspecified Plan: Lower?extremity?edema.??No?tenderness Recent?cellulitis?appears?resolved. Still?has?stasis?dermatitis?at?corral?and?calf Advised?her?to?elevate?her?leg She?has?an?upcoming?appointment?with?Dermatology?and?can?follow-up?with?them Call?or?return?to?office?if?worsening (3) Unsteady gait: Code(s): R26.81 - Unsteadiness on feet Plan: Referred?for?physical?therapy; lower?extremity?strength?and?balance?training Also?as?part?of?fall?prevention,?advised?she?follow-up?with?her?project management director Keep?walk?ways?clear?and?well lit Orders: Orders PT Evaluation and Treatment Today R26.81 - Unsteadiness on feet, R29.898 - Other symptoms and signs involving the musculoskeletal system Lipid Panel Today R26.81 - Unsteadiness on feet, Z00.00 - Encounter for general adult medical examination without abnormal findings UA and rflx microscopic Today R26.81 - Unsteadiness on feet, Z00.00 - Encounter for general adult medical examination without abnormal findings Vitamin D 25-OH Total Today E55.9 - Vitamin D deficiency, unspecified, R26.81 - Unsteadiness on feet Comprehensive [place]. Panel Fast Today R26.81 - Unsteadiness on feet, Z00.00 - Encounter for general adult medical examination without abnormal findings Complete Blood Count Auto Diff Today R26.81 - Unsteadiness on feet, Z00.00 - Encounter for general adult medical examination without abnormal findings Microalbumin, Random (w Creat) Today I10 - Essential (primary) hypertension, R26.81 - Unsteadiness on feet TSH reflex Free T4 Today R26.81 - Unsteadiness on feet, Z00.00 - Encounter for general adult medical examination without abnormal findings Coding Level of Care Code Est Pt Level 4 (97767) Diagnoses Essential hypertension I10 Edema R60.9 Unsteady gait R26.81
== END 2023-08-19 12:33 | disposition home or self-care (01) ==
PROVIDERS: PCP Family Medicine; Visit Provider Family Medicine
DX: I10 Essential (primary) hypertension (principal); R60.9 Edema, unspecified; R26.81 Unsteadiness on feet
CPT/HCPCS: 99214

== ENCOUNTER → 2023-09-21 23:59 | Outpatient (BNV) | payer MEDICARE, SELFPAY ==
--- NOTE | 2023-09-28 11:28 | A.OFFVIS_ITS ---
Intake Visit Reasons: Remote Device Check- [employer] Allergies Seasonal Allergies Allergy (Verified 08/19/23 11:35) Runny Nose PFSH Medical History Persistent atrial fibrillation Embolic stroke PAF (paroxysmal atrial fibrillation) Non-rheumatic aortic stenosis Pacemaker Stroke Tachycardia Iron deficiency anemia Breast cancer, left Heart murmur Hypercholesterolemia HTN (hypertension) Surgical History Status post transcatheter aortic valve replacement Hx of colonoscopy Hx of tonsillectomy Hx of hysterectomy History of lumpectomy of left breast Hx of foot surgery Family History Brother Hodgkin lymphoma Father Colon cancer Social History Household Members: None Housing: House Alcohol intake: current Alcohol intake frequency: holidays/special occasions only Alcohol type: other Patient Tobacco Use Status: Former Tobacco user e-Cigarette/Vaping Use: Never Used service: No Current occupational status: retired Cognitive needs: No Hearing needs: No Vision needs: No Office Procedures Cardiac Device Check Cardiac Device Check Details: Date of service- 09/21/2023 ; Battery life 10 years; normal lead parameters; AP 0%; 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 Overall normal device function. [id number] Cardiac Device Interrogation, pacemaker Procedure code (CPT) selection complete Assessment & Plan Assessment & Plan (1) Persistent atrial fibrillation: Code(s): I48.19 - Other persistent atrial fibrillation Category: Medical Plan x Coding Level of Care Code Procedure Only Diagnoses Persistent atrial fibrillation I48.19 CPT Codes Cardiac Device Check - Cardiac Device 12: [id number] Cardiac Device Interrogation, pacemaker ([id number])
== END ==
PROVIDERS: PCP Family Medicine; Visit Provider Internal Medicine
DX: I48.19 Other persistent atrial fibrillation (principal); Z95.0 Presence of cardiac pacemaker
CPT/HCPCS: 93294

== ENCOUNTER → 2023-12-21 23:59 | Outpatient (BNV) | payer MEDICARE, SELFPAY ==
--- NOTE | 2023-12-22 14:56 | A.OFFVIS_ITS ---
Intake Visit Reasons: Remote device check- [employer] Allergies Seasonal Allergies Allergy (Verified 08/19/23 11:35) Runny Nose PFSH Medical History Persistent atrial fibrillation Embolic stroke PAF (paroxysmal atrial fibrillation) Non-rheumatic aortic stenosis Pacemaker Stroke Tachycardia Iron deficiency anemia Breast cancer, left Heart murmur Hypercholesterolemia HTN (hypertension) Surgical History Status post transcatheter aortic valve replacement Hx of colonoscopy Hx of tonsillectomy Hx of hysterectomy History of lumpectomy of left breast Hx of foot surgery Family History Brother Hodgkin lymphoma Father Colon cancer Social History Household Members: None Housing: House Alcohol intake: current Alcohol intake frequency: holidays/special occasions only Alcohol type: other Patient Tobacco Use Status: Former Tobacco user e-Cigarette/Vaping Use: Never Used service: No Current occupational status: retired Cognitive needs: No Hearing needs: No Vision needs: No Office Procedures Cardiac Device Check Cardiac Device Check Details: Date of service- 12/21/2023 ; Battery life >9 years; normal lead parameters; AP 0%; 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 Overall normal device function. [id number] Cardiac Device Interrogation, pacemaker Procedure code (CPT) selection complete Assessment & Plan Assessment & Plan (1) Pacemaker: Comment: 10/05/2019 Code(s): Z95.0 - Presence of cardiac pacemaker Category: Medical (2) Persistent atrial fibrillation: Code(s): I48.19 - Other persistent atrial fibrillation Category: Medical Plan x Coding Level of Care Code Procedure Only Diagnoses Pacemaker Z95.0 Persistent atrial fibrillation I48.19 CPT Codes Cardiac Device Check - Cardiac Device 12: [id number] Cardiac Device Interrogation, pacemaker ([id number])
== END ==
PROVIDERS: PCP Family Medicine; Visit Provider Internal Medicine
DX: I48.19 Other persistent atrial fibrillation (principal); Z95.0 Presence of cardiac pacemaker
CPT/HCPCS: 93294

== ENCOUNTER 2025-01-20 06:36 | Inpatient (IN) | payer MEDICARE, SELFPAY ==
[2025-01-20] VITALS (10 sets, daily range): BP systolic 89–144; BP diastolic 32–69; PULSE 33–84; RESP 14–20; TEMP 36.4–37; O2SAT 88–100; BMI 21.5
--- NOTE | ~2025-01-20 | XR_ITS ---
CLINICAL HISTORY: hypoxia 1 view chest x-ray Comparison: 01/20/2025 Findings: The lungs are clear. No significant change in cardiomediastinal silhouette, cardiac valve replacement, and pacemaker. Hiatal hernia. Chronic right rotator cuff tear with remodeling of the opposing acromial surface. No acute fracture. For full description of rest of osseous findings please refer to the 01/21/2020 CT report. IMPRESSION: No significant change in cardiomediastinal silhouette, cardiac valve replacement, and pacemaker. Hiatal hernia. This document has been electronically signed by: Yesica Callaway MD on 01/23/2025 12:18:35
--- NOTE | ~2025-01-20 | XR_ITS ---
EXAMINATION: XR CHEST 1 VIEW HISTORY: SOB COMPARISON: There are no prior studies available for comparison. FINDINGS: A single AP portable view of the chest performed at 7:47 AM is submitted. A right sided dual-chamber pacemaker is noted with leads in the right atrium and ventricle. The lungs are expanded and clear. There is no pleural effusion, pneumothorax, or pulmonary vascular congestion. The heart is enlarged. An aortic valve prosthesis is noted. There is degenerative disc disease of the spine. XR/XR chest 1V IMPRESSION: Cardiomegaly. The lungs are clear. Electronically signed by: Marvin Sailnas MD 01/20/2025 08:02 AM EDT
--- NOTE | ~2025-01-20 | CT_ITS ---
EXAMINATION: CT ANGIOGRAM CHEST CLINICAL INFORMATION: Shortness of breath. Hypoxia. COMPARISON: None available. TECHNIQUE: Multiple axial images were obtained through the chest after the administration of 65 mL of Omnipaque 350 intravenous contrast. Extensive vascular post-processing including two-dimensional and three-dimensional reformatted images were created and reviewed on an independent workstation. SmartPrep technique. This CT examination was performed using dose optimization techniques as appropriate, variously including the following: *Automated exposure control *Adjustment of mA and/or kV according to patient size (this includes techniques or standardized protocols for targeted exams where dose is matched to indication/reason for exam; i.e. extremities or head) *Use of iterative reconstruction technique DLP: 191 mGy-cm FINDINGS: Main pulmonary artery and its main left and right branches and subsegmental pulmonary branches demonstrated normal patency without intraluminal filling defect. Status post stenting, ascending thoracic aorta with a maximum diameter of 3.2 cm. Small volume of pericardial effusion. No pneumomediastinum. Patchy pulmonary groundglass, left lower lung lobe. No gross pleural effusion. No pneumothorax. No rachitic disease. No honeycombing. Large hiatal hernia. Calcified plaques in the coronary arteries. Calcified plaque in the mitral valve. No gross mediastinal lymphadenopathy. Numerous blastic lesions throughout the axial skeleton and the rib cage. Multilevel superior endplate compression deformities representing less than 40% volume loss, at the most conspicuous at T3, T4 and T5. There is a right-sided pacemaker with electrode leads in the right heart chambers. I do not see acute rib fractures. Degenerative changes in the shoulders more pronounced on the right side. CT/CT angio chest PE protocol IMPRESSION: No acute pulmonary artery emboli. Numerous osseous metastasis without pathologic fracture. Atelectasis versus airspace disease, left lower lung lobe. Coronary artery disease and atherosclerosis disease. Hiatal hernia, moderate to large volume. Calcified plaques in the mitral valve. Small pericardial effusion. Fleischner guidelines were followed. Electronically signed by: Eugene Martin MD 01/20/2025 11:51 AM EDT
--- NOTE | ~2025-01-20 | CT_ITS ---
EXAMINATION: CT HEAD WITHOUT CONTRAST CLINICAL INFORMATION: loss of hearing in left ear, pain COMPARISON: None available. TECHNIQUE: Contiguous axial imaging was performed from the skull base to vertex without intravenous administration of contrast. This CT examination was performed using dose optimization techniques as appropriate, variously including the following: *Automated exposure control *Adjustment of mA and/or kV according to patient size (this includes techniques or standardized protocols for targeted exams where dose is matched to indication/reason for exam; i.e. extremities or head) *Use of iterative reconstruction technique DLP: 776.25 mGy-cm FINDINGS: No acute intracranial hemorrhage, mass effect, midline shift, hydrocephalus or herniation. Waters-white matter differentiation is normal. Macrocystic encephalomalacia, right middle frontal gyrus, right frontal opercular and right temporal opercular. Posterior cranial fossa contents demonstrated no acute fracture or mass effect. Normal position of the cerebellar tonsils. Sellar/suprasellar region demonstrated no gross masses. Calcified plaques in the cavernous supracavernous segments both ICAs and V4 segments of the vertebral arteries. Prominence of the extra-axial CSF spaces cerebral sulci and ventricles likely central volume loss. Probable old lacunar infarcts in the basal ganglia. No acute fracture in the bony calvarium. Small enostosis in the left frontal convexity. No air-fluid levels in the paranasal sinuses. There is fluid density within the left tympanic cavity and left mastoid cells without coalescence. Right tympanic cavity and right mastoid cells are aerated. CT/CT head/brain wo IV con IMPRESSION: No acute intracranial hemorrhage. Prior vascular insult, right MCA territory. Inflammatory versus infectious processes, left mastoid air cells and left tympanic cavity. Atherosclerosis disease, intracranial. Electronically signed by: Eugene Martin MD 01/20/2025 10:50 AM EDT
--- NOTE | 2025-01-20 07:01 | ED_ITS ---
HPI - General Adult General Chief complaint: Dyspnea Stated complaint: SOB Time Seen by Provider: 01/20/25 07:01 Source: patient and EMS Mode of arrival: EMS Limitations: no limitations History of Present Illness ED Provider: Michelle Pittman PA-C HPI narrative: This is a a 84 yo female who was brought to the ED via EMS for shortness of breath x 5 days. She has a past medical history of stroke, heart failure, aortic valve replacement (TAVR), persistent atrial fibrillation, anticoagulated on apixaban, cardiac pacemaker, HTN, edema, and breast cancer. She reports that she suddenly started feeling short of breath with exertion about 5 days ago, states she cannot walk approximately 10ft before needing to stop to catch her breath. No change in distance she is able to tolerate before SOB since onset. Notably, she saw Dr. Connell 8 days ago for metastatic recurrent breast cancer and was complaining of feeling fatigued and easily winded at that time. Patient presented to [facility] ED in November for lymphadenopathy and left arm edema and workup revealed metastatic cancer probable secondary to recurrent breast cancer. Found to have a infiltrative soft tissue mass in the left subclavian region surrounding the left subclavian artery. Is scheduled for biopsy today. Denies weakness, dizziness, syncope, abdominal pain, bowel or urinary symptoms Onset (ago): day(s) Relieving factors: rest Exacerbating factors: movement Related Data Home Medications ?Medication ?Instructions ?Recorded ?Confirmed coQ10 (ubiquinol) 200 mg capsule 200 mg PO DAILY 06/2607/28/24 turmeric (bulk) 95 % powder 300 ea miscellaneous DAILY 06/26/20 07/28/24 (Curcumin) anastrozole 1 mg tablet 1 mg PO DAILY 01/12/2501/12 digoxin 125 mcg (0.125 mg) tablet 125 mcg PO DAILY Previous Rx's ?Medication ?Instructions ?Recorded aspirin 81 mg tablet,delayed 81 mg PO DAILY #30 tabs 1 05/08/21 release lisinopril 2.5 mg tablet 2.5 mg PO DAILY #90 tabs 05/17 furosemide 20 mg tablet (Lasix) 20 mg PO DAILY PRN rhoda ma #30 tabs 06/30/23 atorvastatin 80 mg tablet 80 mg PO QPM #90 tabs metoprolol succinate 25 mg 75 mg (3 x 25 mg) PO DAILY 90 days 11/27/23 tablet,extended release 24 hr #270 tabs diltiazem HCl 240 mg 240 mg PO DAILY 90 days #90 caps 01/09/24 capsule,extended release 24 hr apixaban 2.5 mg tablet (Eliquis) 2.5 mg PO BID #180 ta bs 04/27/24 Allergies Allergy/AdvReac Type Severity Reaction Status Date / Time Seasonal Allergies Allergy Runny Nose Verified 01/20/25 07:01 Review of Systems 2 Constitutional: Constitutional: Reports as per HPI Eyes: Eyes: Reports as per HPI ENT: Reports as per HPI Cardiovascular: Cardiovascular: Reports as per HPI Respiratory: Respiratory: Reports as per HPI Gastrointestinal: Gastrointestinal: Reports as per HPI Genitourinary: Genitourinary: Reports as per HPI Musculoskeletal: Musculoskeletal: Reports as per HPI Integumentary/Breasts: Skin/Breast: Reports as per HPI Neurologic: Reports as per HPI Psychiatric: Psychiatric: Reports as per HPI Endocrine: Endocrine: Reports as per HPI Hematologic/Lymphatic: Hematologic/Lymphatic: Reports as per HPI Allergic/Immunologic: Allergic/Immunologic: Reports as per HPI FORMERLY [facility] Past Medical History Attestation statement: The following information was validated with the patient. Source: old records reviewed and nursing notes reviewed Medical History Persistent atrial fibrillation Embolic stroke PAF (paroxysmal atrial fibrillation) Non-rheumatic aortic stenosis Pacemaker Stroke Tachycardia Iron deficiency anemia Breast cancer, left Heart murmur Hypercholesterolemia HTN (hypertension) Surgical History Status post transcatheter aortic valve replacement Hx of colonoscopy Hx of tonsillectomy Hx of hysterectomy History of lumpectomy of left breast Hx of foot surgery Family History Family History Brother Hodgkin lymphoma Father Colon cancer Social History Social History Household Members: None Housing: House Alcohol intake: current Alcohol intake frequency: holidays/special occasions only Alcohol type: other Patient Tobacco Use Status: Former Tobacco user e-Cigarette/Vaping Use: Never Used Advance Directives: No Advance Directives Information Provided: No service: No Current occupational status: retired Cognitive needs: No Hearing needs: No Vision needs: No Physical Exam ED Vital Signs: Vital Signs - 24 hr 01/20/25 06:56 01/20/25 10:50 01/20/25 11:35 Temperature 98.6 F 97.7 F Pulse Rate 73 61 62 Respiratory Rate 18 15 20 Blood Pressure 129/59 L 91/48 L 109/66 Pulse Oximetry 88 L 100 Oxygen Delivery Method Room Air Nasal Cannula Oxygen Flow Rate 2 BMI result Body Mass Index 21.5 Const General: no acute distress, alert, awake and ill appearing Nutritional Appearance: well nourished Orientation/consciousness: patient oriented x3 HENMT Head: Yes normal to inspection and Yes atraumatic Ears: hearing grossly normal bilaterally and external ears normal General nose exam: Normal external nose present, no nasal discharge noted and no epistaxis Face and sinus: Yes normal facial exam, No abrasion and No laceration Mouth: Normal oral and palatal mucosa present, no drooling and no muffled voice Eyes General: appearance normal, both eyes and all related structures Periorbital: periorbital findings normal Eyelids: Yes eyelids normal Conjunctivae: conjunctivae normal Pupils: Equal, round and reactive pupils present EOM: EOMs intact bilaterally Neck Neck: Yes normal visual inspection and Yes full ROM Resp Effort & Inspection: able to speak in complete sentences and nasal flaring Auscultation: diminished lung sounds bilateral in the lower lung mora Neuro General: patient oriented x3 Cranial nerves: Yes Equal, round and reactive pupils present Cognition (Neuro): normal cognition Extrem Other: left upper extremity lymphdemea - chronic for patient General: Yes full ROM and Yes capillary refill normal Left upper extremity: edema Psych Appearance: grossly normal Mental Status: mental status grossly normal Affect: normal affect Attitude: cooperative Thought process: Normal thought process present Thought content: Normal thought content present Insight: Good insight present (Psych) Medications Administered Discontinued Medications Generic Name Dose Route Start Last Admin Trade Name Freq PRN Reason Stop Dose Admin Ondansetron HCl 4 mg 01/20/25 10:38 01/20/25 11:31 Ondansetron Hcl 4 Mg/2 Ml Vial IVPUSH 01/20/25 10:39 4 mg ONCE ONE Administration Medical Decision Making Medical Decision Making MDM Narrative: Lora Herron 85 year old female (FULL CODE) with a past medical history of stroke, heart failure, aortic valve replacement (TAVR), persistent atrial fibrillation, anticoagulated on apixaban, cardiac pacemaker, HTN, edema, and breast cancer for which she has switched care [place] [facility] [place] and has a biopsy scheduled today 2pm for a left subclavian soft tissue mass concerning for neoplasm / metastatic breast cancer. Came in today for worsening shortness of breath on exertion. On exam she was hypoxic at 88% on room air. Patient does not normally require oxygen. Currently, she is on 2 liters and her oxygen saturation is at 100%. Labs showed elevated LFTs with total bili 1.3, AST 209, ALT 38, alk phos 513. First trop 25.3, repeat 19.5. BNP 752.5. CXR showed cardiomegaly. CT chest showed numerous osseous metastasis without fracture, atelectasis vs. airspace disease in the left lower lung, a moderate - large hiatal hernia, and a small pericardial effusion. 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 She thought while she was here - she'd get one done. Her CT head showed evidence of her known previous right MCA and some inflammation vs. infection of the left ear. Patient's clinical presentation is most consistent with left lower lobe PNA vs. CHF exacerbation but is NOT consistent with sepsis (@1235). While in the department the patient began to experience some nausea for which she was given Zofran, Reglan, and Benadryl. Patient was given 1 gram of ceftriaxone while in the department. I spoke with the hospitalist team who agreed to admission for continued IV antibiotics and oxygenation. Differential Diagnosis Differential Diagnoses: The differential diagnosis associated with the presentation includes SOB Hypoxia Pneumonia CHF exacerbation Metastatic cancer Admission/Observation Consideration of admission/observation: Escalation of care including admission/observation considered Patient admitted as noted in the MDM Rationale portion of this note. Consult Healthcare Provider Management of the patient was discussed with: Hospitalist (agreed to admission as noted in the MDM Rationale portion of this note.) Lab Data [facility] Lab Attestation statement: I reviewed the patient's lab results. My interpretation of these results are in the MDM Rationale portion of this note. 01/20/25 07:34 01/20/25 07:34 Labs: Lab Results 01/20/25 01/20/25 01/20/25 Range/Units 07:24 07:34 07:40 WBC 8.4 (4.8-10.8) X10*3/uL RBC 4.70 (4.20-5.50) X10*6/uL Hgb 14.7 (12.0-16.0) g/dl Hct 45.1 (37.0-47.0) % MCV 96.0 (80.0-98.0) fL MCH 31.3 (27.0-33.0) pg MCHC 32.6 (31.0-35.0) g/dl RDW 14.9 (11.0-16.0) % Plt Count 120 L (160-400) X10*3/uL MPV 10.7 (9.4-12.3) fL Immature Gran % (Auto) 2.0 H (0.0-0.4) % Neut % (Auto) 54.9 (45-73) % Lymph % (Auto) 31.5 (20-40) % Hickman % (Auto) 9.9 (2-11) % Eos % (Auto) 1.1 (0-4) % Baso % (Auto) 0.6 (0-2) % Lymph # (Auto) 2.7 (1.2-4.9) X10*3/uL Hickman # (Auto) 0.8 (0.1-1.2) X10*3/uL Eos # (Auto) 0.1 (0.0-0.4) X10*3/uL Baso # (Auto) 0.1 (0.0-0.2) X10*3/uL Abs Immat Gran (auto) 0.17 H (0.00-0.03) X10*3/uL Absolute Neuts (auto) 4.6 (2.0-8.3) x10*3/uL Absolute Nucleated RBC 0.070 H (0.0-0.012) X10*3/uL Nucleated RBC % (auto) 0.8 H (0.0-0.2) /100WBC VBG pH 7.39 (7.32-7.43) VBG pCO2 37 mmHg VBG pO2 44 mmHg VBG HCO3 23 (22-26) mmol/L VBG O2 Saturation 60.0 % VBG Base Excess -1.3 mmol/L Sodium 141 (135-145) mmol/L Potassium 4.6 (3.3-5.1) mmol/L Chloride 111 H (96-108) mmol/L Carbon Dioxide 21 L (22-29) mmol/L Anion Gap 14 (12-20) BUN 19 H (9-16) mg/dL Creatinine 0.98 (0.5-1.4) mg/dL Estim Creat Clear Calc 37.8 Estimated GFR 54 Random Glucose 132 H (60-115) mg/dL Calcium 8.8 (8.4-10.2) mg/dL Magnesium 2.2 (1.6-2.6) mg/dL Total Bilirubin 1.3 H (0.0-1.0) mg/dL AST 209 H (5-31) U/L ALT 38 H (0-31) U/L Alkaline Phosphatase 513 H (39-117) U/L Troponin I High Sens 25.3 H (<3.5-17.0) ng/L NT-Pro-B Natriuret Pep 752.5 H (<300) pg/mL Total Protein 6.6 (6.5-8.0) g/dL Albumin 3.3 L (3.5-5.0) g/dL COVID-19 ([facility]) Negative (Negative) COVID-19 Clin Com See Note Influenza Type A ([facility]) Negative (Negative) Influenza Type B ([facility]) Negative (Negative) Influenza A & B Note See Note 01/20/25 Range/Units 10:44 WBC (4.8-10.8) X10*3/uL RBC (4.20-5.50) X10*6/uL Hgb (12.0-16.0) g/dl Hct (37.0-47.0) % MCV (80.0-98.0) fL MCH (27.0-33.0) pg MCHC (31.0-35.0) g/dl RDW (11.0-16.0) % Plt Count (160-400) X10*3/uL MPV (9.4-12.3) fL Immature Gran % (Auto) (0.0-0.4) % Neut % (Auto) (45-73) % Lymph % (Auto) (20-40) % Hickman % (Auto) (2-11) % Eos % (Auto) (0-4) % Baso % (Auto) (0-2) % Lymph # (Auto) (1.2-4.9) X10*3/uL Hickman # (Auto) (0.1-1.2) X10*3/uL Eos # (Auto) (0.0-0.4) X10*3/uL Baso # (Auto) (0.0-0.2) X10*3/uL Abs Immat Gran (auto) (0.00-0.03) X10*3/uL Absolute Neuts (auto) (2.0-8.3) x10*3/uL Absolute Nucleated RBC (0.0-0.012) X10*3/uL Nucleated RBC % (auto) (0.0-0.2) /100WBC VBG pH (7.32-7.43) VBG pCO2 mmHg VBG pO2 mmHg VBG HCO3 (22-26) mmol/L VBG O2 Saturation % VBG Base Excess mmol/L Sodium (135-145) mmol/L Potassium (3.3-5.1) mmol/L Chloride (96-108) mmol/L Carbon Dioxide (22-29) mmol/L Anion Gap (12-20) BUN (9-16) mg/dL Creatinine (0.5-1.4) mg/dL Estim Creat Clear Calc Estimated GFR Random Glucose (60-115) mg/dL Calcium (8.4-10.2) mg/dL Magnesium (1.6-2.6) mg/dL Total Bilirubin (0.0-1.0) mg/dL AST (5-31) U/L ALT (0-31) U/L Alkaline Phosphatase (39-117) U/L Troponin I High Sens 19.5 H (<3.5-17.0) ng/L NT-Pro-B Natriuret Pep (<300) pg/mL Total Protein (6.5-8.0) g/dL Albumin (3.5-5.0) g/dL COVID-19 ([facility]) (Negative) COVID-19 Clin Com Influenza Type A ([facility]) (Negative) Influenza Type B ([facility]) (Negative) Influenza A & B Note Independent Interpretation I performed an independent interpretation of an: EKG, Plain X-Ray and CT Scan Interpretation: My interpretation is in agreement with the radiologist's impression of these imaging studies. L Reason for Exam: concern for PE, SOB, hypoxia EXAMINATION: CT ANGIOGRAM CHEST CLINICAL INFORMATION: Shortness of breath. Hypoxia. COMPARISON: None available. TECHNIQUE: Multiple axial images were obtained through the chest after the administration of 65 mL of Omnipaque 350 intravenous contrast. Extensive vascular post-processing including two-dimensional and three- dimensional reformatted images were created and reviewed on an independent workstation. SmartPrep technique. This CT examination was performed using dose optimization techniques as appropriate, variously including the following: *Automated exposure control *Adjustment of mA and/or kV according to patient size (this includes techniques or standardized protocols for targeted exams where dose is matched to indication/reason for exam; i.e. extremities or head) *Use of iterative reconstruction technique DLP: 191 mGy-cm FINDINGS: Main pulmonary artery and its main left and right branches and subsegmental pulmonary branches demonstrated normal patency without intraluminal filling defect. Status post stenting, ascending thoracic aorta with a maximum diameter of 3.2 cm. Small volume of pericardial effusion. No pneumomediastinum. Patchy pulmonary groundglass, left lower lung lobe. No gross pleural effusion. No pneumothorax. No rachitic disease. No honeycombing. Large hiatal hernia. Calcified plaques in the coronary arteries. Calcified plaque in the mitral valve. No gross mediastinal lymphadenopathy. Numerous blastic lesions throughout the axial skeleton and the rib cage. Multilevel superior endplate compression deformities representing less than 40% volume loss, at the most conspicuous at T3, T4 and T5. There is a right-sided pacemaker with electrode leads in the right heart chambers. I do not see acute rib fractures. Degenerative changes in the shoulders more pronounced on the right side. CT/CT angio chest PE protocol IMPRESSION: No acute pulmonary artery emboli. Numerous osseous metastasis without pathologic fracture. Atelectasis versus airspace disease, left lower lung lobe. Coronary artery disease and atherosclerosis disease. Hiatal hernia, moderate to large volume. Calcified plaques in the mitral valve. Small pericardial effusion. Fleischner guidelines were followed. Electronically signed by: Eugene Martin MD 01/20/2025 11:51 AM EDT Dictated By: Eugene Ashford MD Signed By: Electronically signed by Eugene Moffett MD 01/20/25 1151 Report Number: [id number]: Total DLP = 776.25 mGy-cm Reason for Exam: loss of hearing in left ear, pain EXAMINATION: CT HEAD WITHOUT CONTRAST CLINICAL INFORMATION: loss of hearing in left ear, pain COMPARISON: None available. TECHNIQUE: Contiguous axial imaging was performed from the skull base to vertex without intravenous administration of contrast. This CT examination was performed using dose optimization techniques as appropriate, variously including the following: *Automated exposure control *Adjustment of mA and/or kV according to patient size (this includes techniques or standardized protocols for targeted exams where dose is matched to indication/reason for exam; i.e. extremities or head) *Use of iterative reconstruction technique DLP: 776.25 mGy-cm FINDINGS: No acute intracranial hemorrhage, mass effect, midline shift, hydrocephalus or herniation. Waters-white matter differentiation is normal. Macrocystic encephalomalacia, right middle frontal gyrus, right frontal opercular and right temporal opercular. Posterior cranial fossa contents demonstrated no acute fracture or mass effect. Normal position of the cerebellar tonsils. Sellar/suprasellar region demonstrated no gross masses. Calcified plaques in the cavernous supracavernous segments both ICAs and V4 segments of the vertebral arteries. Prominence of the extra-axial CSF spaces cerebral sulci and ventricles likely central volume loss. Probable old lacunar infarcts in the basal ganglia. No acute fracture in the bony calvarium. Small enostosis in the left frontal convexity. No air-fluid levels in the paranasal sinuses. There is fluid density within the left tympanic cavity and left mastoid cells without coalescence. Right tympanic cavity and right mastoid cells are aerated. CT/CT head/brain wo IV con IMPRESSION: No acute intracranial hemorrhage. Prior vascular insult, right MCA territory. Inflammatory versus infectious processes, left mastoid air cells and left tympanic cavity. Atherosclerosis disease, intracranial. Electronically signed by: Eugene Martin MD 01/20/2025 10:50 AM EDT Dictated By: Eugene Ashford MD Signed By: Electronically signed by Eugene Moffett MD 01/20/25 1050 Reason for Exam: SOB EXAMINATION: XR CHEST 1 VIEW HISTORY: SOB COMPARISON: There are no prior studies available for comparison. FINDINGS: A single AP portable view of the chest performed at 7:47 AM is submitted. A right sided dual-chamber pacemaker is noted with leads in the right atrium and ventricle. The lungs are expanded and clear. There is no pleural effusion, pneumothorax, or pulmonary vascular congestion. The heart is enlarged. An aortic valve prosthesis is noted. There is degenerative disc disease of the spine. XR/XR chest 1V IMPRESSION: Cardiomegaly. The lungs are clear. Electronically signed by: Marvin Salinas MD 01/20/2025 08:02 AM EDT Dictated By: Marvin Salinas MD Signed By: Electronically signed by Marvin Salinas MD 01/20/25 0802 I independently interpreted this EKG and am in agreement with the below findings: Vent. Rate: 63 BPM Atrial Rate: 63 BPM P-R Int: * ms QRS Dur: 178 ms QT Int: 522 ms P-R-T Axes: 74 -17 150 degrees QTcB Int: 534 ms Ventricular-paced rhythm with intrinsic complexes No previous ECGs available DD/ 0715 Radiology Impression Discussion of test interpretation with radiology: I have reviewed the radiologist's reading. Independent Historian Clinical information obtained from an independent historian. History obtained from or confirmed by: EMS (EMS provided additional history and confirmed the history provided by the patient. ) External Record Review External record reviewed: Office record (Reviewed heme[place]onc [place] [facility] and Other (Reviewed outside [facility] records) Critical Care Time Critical Care Time Critical Care Time: Yes Total Critical Care Time: 48 Attestation: I spent 48 minutes of Critical Care Time with this patient. This does not include time spent on separately reported billable procedures. Discharge Plan Discharge Clinical Impression: Hypoxia, Pneumonia Patient Disposition: Admitted As Inpatient Print Language: Yemeni
--- NOTE | 2025-01-20 07:09 | ECG_ITS ---
Test Reason : sob Blood Pressure : */* mmHG Vent. Rate : 63 BPM Atrial Rate : 50 BPM P-R Int : * ms QRS Dur : 178 ms QT Int : 522 ms P-R-T Axes : 74 -17 150 degrees QTcB Int : 534 ms Ventricular-paced rhythm with intrinsic complexes Abnormal ECG No previous ECGs available Referred By: Michelle Pittman Electronically Signed By: BETTY MA
--- OUTSIDE RECORDS SUMMARY | 2025-01-20 07:18 | XMS_ITS | Clinical Summary ---
Author Organization [facility] ity Address [address] [place] [address] Care Team Providers Care Optician Apprentice Name Role Phone Unavailable Primary Care Provider Unavailabl e Surgical History Surgery Date Site/Laterality Comments HYSTERECTOMY PROCEDURE: HISTORICAL HYSTERECTOMY TONSILLECTOMY PROCEDURE: HISTORICAL TONSILLECTOMY OTHER SURGICAL HISTORY [id number] Right PROCEDURE: DC ENDOVEN ABLTJ INCMPTNT VEIN XTR LASER 1ST VEIN; COMMENT: great saphenous vein calf Medical History Medical History Date Comments GERD (gastroesophageal reflux disease) DX:GERD (gastroesophageal reflux disease) Osteoarthritis DX:Osteoarthriti s Vitamin D deficiency DX:Vitamin D deficiency Diverticulosis of colon 06/2007 DX:Diver ticulosis of colon Internal hemorrhoid 06/2007 DX:Internal hemorrhoid Osteopenia 01/22/06 DX:Osteopenia; C OMMENT: L spine T score -2.0 Hypercholesteremia DX:Hyperchole steremia; COMMENT: pt does not want addressed Family History Relation Name Status Comments Brother cancer at age 5 1 Father heart problems, diabetes, HTN, cancer Mother HTN, stroke, ar thritis Social History Tobacco Use Types Packs/Day Years Used Date Smoking Tobacco: Former Smokeless Tobacco: Never Alcohol Use Standard Drinks/Week Comments Yes 0 (1 standard drink = 0.6 oz pur e alcohol) Comments Unknown Sex and Gender Information Value Date Recorded Sex Assigned at Not on file Legal Sex Female 12:33 AM EST Gender Identity Not on file Sexual Orientation Not on file Obstetrics History Plan of Treatment Health Maintenance Due Date Last Done Comments COVID-19 Vaccine (#1) 1945 Zoster Vaccines (1 of 2) 1957 Pneumococcal Vaccine: 50+ Years (2 of 2 - PCV) 08/02/2008 08/03/2007 RSV Immunization Adult Patients (1 - 1-dose 75+ series) 2013 DTaP,Tdap,and Td Vaccines (2 - Td or Tdap) 08/02/2017 08/03/2007 Cholesterol Screening (Lipid Panel) 02/24/2022 Falls Risk Assessment 02/24/2022 Osteoporosis Screening (Bone Density Screening) 02/24/2022 Social Influencers of Health Screening 02/24/2022 Hypertension/CHF/CAD Annual BMP Blood Test 04/26/2023 Depression Screening 03/24/2024 Influenza Vaccine (#1) 2024 5, 02/01/2011, 01/02/2010 HIB Vaccines Aged Out No longer eligi ble based on patient's age to complete this topic HPV Vaccines Aged Out No longer eligi ble based on patient's age to complete this topic Hepatitis A Vaccines Aged Out No long er eligible based on patient's age to complete this topic Hepatitis B Vaccines Aged Out No long er eligible based on patient's age to complete this topic IPV Vaccines Aged Out No longer eligi ble based on patient's age to complete this topic MMR Vaccines Aged Out No longer eligi ble based on patient's age to complete this topic Meningococcal ACWY Vaccine Aged Out N o longer eligible based on patient's age to complete this topic Meningococcal B Vaccine Aged Out No l onger eligible based on patient's age to complete this topic RSV Immunization Patients Under 20 months Aged Out No longer eligible b ased on patient's age to complete this topic Varicella Vaccines Aged Out No longer eligible based on patient's age to complete this topic
--- OUTSIDE RECORDS SUMMARY | 2025-01-20 07:19 | XMS_ITS | Data Portability ---
Author Organization DAYAN Leigh s [address] Address [address] [place] [address] Assessment Encounter Date Assessment Date Assessment LastModified by Organization Details LastModified Time 07/09/2023 07/09/2023 Based on your presentation and exam today, I am diagnosing you with cellulitis. I am going to prescribe you and antibiotic to cover this infection. Please be sure to complete the full course of this antibiotic to prevent antibiotic resistance. I suggest with any antibiotic that you take Florastor or another probiotic. This help re-colonize you body with the good bacteria. It might take 3-4 days for the antibiotic to start working - so don't panic if your infection gradually worsens over the next 48 hours before it gets better. The following are my recommendations to help you feel better and aid in resolving this infection: 1. No creams or lotions on the affected area - so no Antibiotic ointment. 2. Warm Epsen Salt Soaks - 2 or 3 x daily. This will help move the infection to the surface of the skin. 3. Take Ibuprofen or Tylenol if you do not have any allergies to these medications. If you take a blood thinner you should not take NSAIDS like Ibuprofen. These medication will help with the inflammation in your respiratory tract which should help the cough. 4. Do no squeeze or pick at the area. This can worsen the infection. The following are warning signs to look out for that would suggest the infection is worsening. This would mean you should be seen again: 1. Fever > 100.5 2. Redness is spreading to double the size in 24 hours 3. Increased swelling and pain. 4. Inability to move a joint 5. Swollen lymph nodes that are tender Thank you for using [facility] today, please don't hesitate to call or reach out to us if you have any questions or concerns. shannon Not available 07/09/2023 14:02:51 Plan of Treatment Reminders Order Date Submit Date Provider Last Modified By Organization Details Last Modified Time Details Appointments None recorded. Lab None recorded. Referral None recorded. Procedures None recorded. Surgeries None recorded. Imaging None recorded. Medication Orders cephalexin 500 mg capsule 2023 024 [id number], [address], [place], [address], 14:02:40 Patient TargetsNo targets recorded. Patient Instructions Encounter Date Encounter Id Patient Instructions Last Modified By Organization Details Last Modified Time 07/09/2023 [id number] leg pain: care instructions shannon Not available 07/09/2023 14:02:36 Reason for Referral None Reported. Problems Name Problem SNOMED Code Status Onset Date Resolution Date Notes Provider Name and Address Organization Details Recorded Time Cellulitis of lower leg 900205539 Active 2023 EDWAR BECKER NP [address] [place], [address], [place] - [facility] 4 14:00:51 Pain in bilateral legs 2227121344579 9108 Active 2023 EDWAR BECKER NP [address] [place], [address], [place] - [facility] 4 14:01:08 Notes:stroke in 2019 has a p acemaker Problem Notes None recorded. Medical Equipment None Reported. Allergies No known drug allergies Medications Name Sig Start Date Stop Date Status Note LastModified by Organization Details LastModified Time cephalexin 500 mg capsule Take 1 capsule every 6 hours by oral route for 5 days. 2023 active Not Available Not Available Not Avai lable atorvastatin active Not Available Not Available Not Available lisinopril active Not Available Not Av ailable Not Available Baby Aspirin active Not Available Not Available Not Available Eliquis active Not Available Not Avail able Not Available Vitals Date Recorded Body height Body mass index (BMI) Body weight Respiratory rate Body temperature Heart rate Systolic And Diastolic Provider Name and Address Organization Details Last Updated DateTime 160.02 cm 23 kg/m2 73221.0 1 g 20 /min 98 [degF] 65 /min 144/72 mm[Hg] Amelia Ibrahim [facility] 13:36:15 Social History Question Answer Notes LastModified by Organizat ion Details LastModified Time Tobacco Smoking Status Never Smoker [facility] 07/09/2023 13:34:20 Have You Had A Flu Shot This Season? Yes Information not available 07/09/2023 If No, Would You Like A Flu Shot Today? No Information not available 07/09/2023 Have You Had Direct Contact, Or Contact During Intimacy, With Monkeypox Rash, Scabs, Or Body Fluids From A Person With Monkeypox? No Information not available 07/09/2023 What Was The Date Of Your Most Recent Tobacco Screening? 07/09/2023 Information not available 07/09/2023 Have You Recently Traveled Abroad? No Information not available 07/09/2023 Sex: Unknown Functional Status Question Answer Note LastModified by Organizat ion Details LastModified Time Do you use any illicit or recreational drugs? No Information not available 07/09/2023 Do you or have you ever used any other forms of tobacco or nicotine? No Information not available 07/09/2023 What is your level of alcohol consumption? None Information not available 07/09/2023 Mental Status None recorded. Family History Relationship Description Onset Age of this Age Resolved Age Notes LastModified by Organization Details LastModified Time Father No current problems or disability Not available 07/08 13:34:07 Mother No current problems or disability Not available 07/08 13:34:07 Medical History No medical history recorded. Gynecological HistoryNo gynecological history recorded. Obstetrics History GPAL:G 0 P 0 0 0 0 Immunizations Vaccine Type Date Status Note Provider Nam e and Address Organization Details Recorded Time Influenza, high-dose, quadrivalent, PF 2 completed DAYAN Benavides [facility] 07/09/2023 13:31:03 COVID-19, mRNA, LNP-S, PF, 30 mcg/0.3 mL dose 1 completed Amelia Marier null, [place] - [facility] 07/09/2023 13:31:03 COVID-19, mRNA, LNP-S, PF, 30 mcg/0.3 mL dose 1 completed Amelia Marier null, [place] - [facility] 07/09/2023 13:31:03 COVID-19, mRNA, LNP-S, PF, 30 mcg/0.3 mL dose 1 completed Amelia Marier null, [place] - [facility] 07/09/2023 13:31:03 COVID-19, mRNA, LNP-S, bivalent, PF, 30 mcg/0.3 mL dose 2 completed Amelia Kaceyer null, [place] - [facility] 07/09/2023 13:31:03 pneumococcal polysaccharide PPV23 8 completed Amelia Marier null, [place] - [facility] 07/09/2023 13:31:03 pneumococcal polysaccharide PPV23 1 completed Amelia Marier null, [place] - [facility] 07/09/2023 13:31:03 Tdap 8 completed Amelia Marier null, [place] - [facility] 07/09/2023 13:31:03 Tdap 1 completed Amelia Marier null, [place] - [facility] 07/09/2023 13:31:03 Pneumococcal conjugate PCV 13 6 completed Amelia Marier null, [place] - [facility] 07/09/2023 13:31:03 Pneumococcal conjugate PCV 13 1 completed Amelia Marier null, [place] - [facility] 07/09/2023 13:31:03 Influenza, high-dose, trivalent, PF 9 completed Amelia Marier null, [place] - [facility] 07/09/2023 13:31:03 Influenza, high-dose, trivalent, PF 0 completed Amelia Marier null, [place] - [facility] 07/09/2023 13:31:03 Influenza, split virus, trivalent, preservative 6 completed Amelia Marier null, [place] - [facility] 07/09/2023 13:31:03 Influenza, split virus, trivalent, preservative 0 completed Amelia Marier null, [place] - [facility] 07/09/2023 13:31:03 Influenza, split virus, trivalent, preservative 1 completed Amelia Marier null, [place] - [facility] 07/09/2023 13:31:03 Td (adult), 2 Lf tetanus toxoid, preservative free, adsorbed 8 completed Amelia Marier null, [place] - [facility] 07/09/2023 13:31:03 Past Encounters Encounter ID Performer Location Encounter Start Date Encounter Closed Date Diagnosis/Indication Diagnosis SNOMED-CT Code Diagnosis ICD10 Code Diagnosis IMO Codes Diagnosis Note [id number] [address] [address] [place] [address] 03/29/2016 18:32:18 03/29/2016 19:08:23 [id number] [facility] [address] [address] 08/26/2017 10:22:38 08/26/2017 11:37:37 [id number] EDWAR BECKER [facility] [address] [address] [place] [phone] 07/09/2023 13:25:37 07/09/2023 14:04:42 Cellulitis of lower leg 672089235 L03.119 Pain in bi lateral legs 5311421086 [id number] M79.604 Health Concerns Section Related Observation LastModified by Organization Detai ls LastModified Time None Recorded Concern Status LastModified by Organization Details LastModified Time None Recorded Advance Directives Directive None Recorded Payers Insurance Date Sequence Insurance Name Policy Number Policy Desir Covered Member ID Desir Member ID Guarantor Name 07/15/2023 1 [place] [employer] Lora [id number] Lora Herron 07/15/2023 2 [place] [id number] Lora Herron [id number] Lora Herron Notes Date Note Type Note Provider Name and Address Organization Details Recorded Time 07/09/2023 text/html Lower Leg UCReported by PatientHPIFor location, patient reportsbilateral. For quality, patient reportsburningandsu perficial. For severity, patient reportsmoderate. For duration, patient reports5 days. For context, (o traum). bilateral lower leg edema for the past weekwas seen at cardiology office and given lasix and report pain to bilateral LEsimilar to previous infection to BLEdenies any injuries, or traumaPMH of tachycardia, afib, TVAR procedure, HF EDWAR BECKER NP [address] [place], [address], [place] - [facility] 07/09/2023 14:09:29 OBGyn Episode No OBEpisode recorded.
--- OUTSIDE RECORDS SUMMARY | 2025-01-20 07:19 | XMS_ITS | Patient Health Record ---
Author Organization [facility] Address [address] [place] [address] Care Team Providers Care Brain Wave Technician Name Role Phone Reab Reynoso MD Primary Care Provider Marvin Lr Unavailable [phone] Allergies No Known Allergies Reason For Referral No Information Medications Medication SIG (Take, Route, Frequency, Duration) Notes Start Date End Date Status Atorvastatin Calcium 80 MG 1 tablet Oral ly Once a day; Duration: 30 day(s) Active CoQ-10 400 MG as directed Orally Active Fish Oil 1000 MG 1 capsule Orally Onc e a day; Duration: 30 day(s) Active Tylenol 325 MG 1 tablet as needed O rally every 4 hrs Active Prebiotic Product - as directed Orally Active Eliquis 2.5 MG as directed Orally Active Lisinopril 2.5 MG 1 tablet Orally Once a day; Duration: 30 day(s) Active Diltiazem CD 240 MG 1 capsule Orally Onc e a day; Duration: 30 day(s) Active Acidophilus 500 MG as directed Orally Active Cranberry Concentrate 140-100-3 MG-MG-UNIT 1 capsule Orally Once a day; Duration: 30 day(s) Active Omeprazole 20mg prn Acti ve Vitamin C 1000 MG 1 tablet Orally Once a day; Duration: 30 day(s) Active Atenolol 50mg Active Curcumax Pro - as directed Orally Active Metoprolol Succinate ER 50 MG 1 tablet Orally Once a day; Duration: 30 day(s) Active Immunizations Vaccine Route Administration Date Status Comme nts Influenza Unknown 11/23/2015 Administered Influenza Unknown 06/27/2021 Refused Problems Problem Type SNOMED Code ICD Code Onset Dates Problem Status W/U Status Risk Notes Problem Flatus (23655330) Flatus (R14.3) Active confirmed Problem Iron deficiency anemia (73457030) Iron deficiency anemia, unspecified iron deficiency anemia type (D50.9) Active confirmed Plan Of Treatment Pending Test Test Name Order Date IRON + IBC (FE) 11/28/2016 FERRITIN 11/28/2016 CBC w DIFF 11/28/2016 Future Test Test Name Order Date COLONOSCOPY 04/27/2013 UPPER GI ENDOSCOPY 11/28/2016 COLONOSCOPY 11/28/2016 Insurance Providers Payer Name Payer Address Payer Phone Subscriber Number Group Number Insured Name Patient Relationship to Insured Coverage Start Date Coverage End Date MEDICARE OF [place] [address] [place] [address] [id number] FARIHA LUTZ Self - patient is the insured MEDEX ATTN CLAIMS [address] [place] [address] [phone] [id number] FARIHA LUTZ Self - patient is the insured Medical (General) History Medical History History ICD Code Tubular adenoma removed in --also, noted were sigmoid diverticulae and internal hemoorhoids---had a negative colonoscopy in 06/2013 except for inflammatory and hyperplastic polyps GERD-EGD in 06/2007 with a large HH-no si g. esophagitis Hypertension Denies [place],DM,CVA,Lung disease,renal dise ase Urinary incontinence- mild Breast cancer 2013 CVA 03/2019 Anemia 02/2017--EGD and [place] noscopy- EGD large HH/gastritis and Negative colonoscopy--anemia resolved Gallstones seen on 2020 CT scan-no sympt oms as of the 06/2021 OV Surgical History Surgery Date(Month/Year) Hysterectomy with removal of one ovary f or endometriosis Foot surgery Tonsillectomy Lumpectomy and lymph nodes-- left breast-2013--XRT also--sees Dr. Connell
[2025-01-20 07:40] LABS: MANUAL DIFF FLAG NO
[2025-01-20 07:44] LABS: Venous Blood Gas Refer to POC result
[2025-01-20 07:45] LABS: VBG HCO3 23 mmol/L (22-26); VBG O2 % Saturation 60.0 %
[2025-01-20 07:49] LABS: Hematocrit 45.1 % (37.0-47.0); Hemoglobin 14.7 g/dl (12.0-16.0); Imm Gran Abs Auto 0.17 X10*3/uL (0.00-0.03); Imm Gran Pct Auto 2.0 % (0.0-0.4); Lymphocytes Absolute Auto 2.7 X10*3/uL (1.2-4.9); Mean Corpuscular HGB Conc 32.6 g/dl (31.0-35.0); Mean Corpuscular Hemoglobin 31.3 pg (27.0-33.0); Mean Corpuscular Volume 96.0 fL (80.0-98.0); NRBC Abs Auto 0.070 X10*3/uL (0.0-0.012); NRBC Pct Auto 0.8 /100WBC (0.0-0.2); Platelet Count 120 X10*3/uL (160-400); Red Blood Count 4.70 X10*6/uL (4.20-5.50); White Blood Count 8.4 X10*3/uL (4.8-10.8)
[2025-01-20 07:58] LABS: IDNOW Serial# 55D5AD1C
[2025-01-20 07:59] LABS: COVID-19 Test Negative (Negative); IDNOW Serial# 58CA691E; Influenza B2 Negative (Negative)
[2025-01-20 08:00] LABS: Alanine Aminotransferase 38 U/L (0-31); Albumin Level 3.3 g/dL (3.5-5.0); Alkaline Phosphatase 513 U/L (39-117); Anion Gap 14 (12-20); Aspartate Amino Transferase 209 U/L (5-31); Blood Urea Nitrogen 19 mg/dL (9-16); Calcium 8.8 mg/dL (8.4-10.2); Carbon Dioxide 21 mmol/L (22-29); Chloride 111 mmol/L (96-108); Creatinine Clr Calc Pharmacy 37.8; Estimated Glomerular Filt Rate 54; Magnesium 2.2 mg/dL (1.6-2.6); Potassium 4.6 mmol/L (3.3-5.1); Sodium 141 mmol/L (135-145); Total Protein 6.6 g/dL (6.5-8.0)
[2025-01-20 08:06] LABS: NT Pro B Type Natriuretic Pept 752.5 pg/mL (<300); Troponin-I High Sensitivity 25.3 ng/L (<3.5-17.0)
--- NOTE | 2025-01-20 11:00 | PC.NURSE ---
electronic security technician alerted this RN that during her CT scan they blew her IV, they attempted another one but were not able to obtain, this RN went into room and was able to obtain a #20 in her right back forearm, provider and CT aware at this time.
[2025-01-20 11:14] LABS: Troponin-I High Sensitivity 19.5 ng/L (<3.5-17.0)
--- NOTE | 2025-01-20 13:13 | P.HPHOSP_ITS ---
History of Present Illness Date of Service: 01/20/25 Attending physician on admission: Diane Shoemaker Chief Complaint: shortness of breath This is an 85-year-old female with a remote history of breast cancer who presents to the emergency department with shortness of breath. Patient was initially seen in the [facility] system on December 20 due to arm swelling and through workup reportedly found a ?spot on her lung and shoulder. She was supposed to have outpatient follow-up in the [facility] system but states that she waited multiple weeks without hearing back so she scheduled appointment with Dr. Connell. She was seen by Dr. Connell on January 12 and a biopsy was scheduled for today but she came to the emergency department instead. She reports progressive dyspnea on exertion and shortness of breaths for the past 1 week. She has to take multiple breaks with walking even short distances. She denies any cough or fever. She denies any recent sick contacts. She has not extremity edema, she denies orthopnea. In the emergency department she was noted to be hypoxic with an oxygen saturation of 88% on room air. CTA was negative for PE but did show possibility of pneumonia. She also reports nausea and thinks this is due to her hiatal hernia. Per outpatient oncology notes patient was seen at [facility] because of left cervical lymphadenopathy with worsening left arm edema. Her outpatient labs showed erythrocytosis, elevation in total bilirubin as well as transaminases and elevated LDH and alkaline phosphatase. CEA 36.4. Review of Systems 2 Review of Systems: Yes all other systems are reviewed and are negative Constitutional: Constitutional: Denies chills and Denies fever(s) Cardiovascular: Cardiovascular: Denies chest pain, Denies palpitations and Reports dyspnea Respiratory: Respiratory: Denies cough and Reports dyspnea Gastrointestinal: Gastrointestinal: Denies abdominal pain Endocrine: Endocrine: Denies palpitations [facility] Medical History Persistent atrial fibrillation Embolic stroke PAF (paroxysmal atrial fibrillation) Non-rheumatic aortic stenosis Pacemaker Stroke Tachycardia Iron deficiency anemia Breast cancer, left Heart murmur Hypercholesterolemia HTN (hypertension) Family History Brother Hodgkin lymphoma Father Colon cancer Surgical History Status post transcatheter aortic valve replacement Hx of colonoscopy Hx of tonsillectomy Hx of hysterectomy History of lumpectomy of left breast Hx of foot surgery Social History Household Members: None Housing: House Alcohol intake: current Alcohol intake frequency: holidays/special occasions only Alcohol type: other Patient Tobacco Use Status: Former Tobacco user e-Cigarette/Vaping Use: Never Used Advance Directives: No Advance Directives Information Provided: No Nutrition Risks: No Nutritional Risk service: No Current occupational status: retired Cognitive needs: No Hearing needs: No Vision needs: No Meds Allergies Allergy/AdvReac Type Severity Reaction Status Date / Time Seasonal Allergies Allergy Runny Nose Verified 01/20/25 07:01 Active Medications: Current Medications Acetaminophen (Acetaminophen 325 Mg Tablet) 650 mg PO Q6H PRN PRN Reason: Pain, Mild 1-3,fever,headache Calcium Carbonate (Calcium Carbonate 750 Mg Tab.Chew) 750 mg PO Q4H PRN PRN Reason: Heartburn Ceftriaxone Sodium 1 gm/ (Sodium Chloride) 50 mls @ 100 mls/hr IV Q24H INEZ Magnesium Hydroxide (Milk Of Magnesia 30 Ml Oral.Susp) 30 ml PO DAILY PRN PRN Reason: Constipation Melatonin (Melatonin 3 Mg Tablet) 6 mg PO BEDTIME PRN PRN Reason: Insomnia Sodium Chloride (0.9 % Sodium Chloride Flush 3 Ml Syringe) 3 ml IVFLUSH QSHIFT INEZ Home Medications ?Medication ?Instructions ?Recorded ?Confirmed ?Last Taken ?Type coQ10 (ubiquinol) 200 mg capsule 200 mg PO DAILY 06/2601/20/25 01/19/25 History atorvastatin 80 mg tablet 80 mg PO BEDTIME 01/20/2501/19/25 History digoxin 125 mcg (0.125 mg) tablet 125 mcg PO DAILY 01/20/25 01/20/25 History diltiazem HCl 240 mg 240 mg PO BEDTIME 01/20/25 1 01/19/25 History capsule,extended release 24 hr lisinopril 2.5 mg tablet 2.5 mg PO BEDTIME 01/20/25 1 01/19/25 History metoprolol succinate 25 mg 75 mg PO BEDTIME 01/20/25 1 01/19/25 History tablet,extended release 24 hr Physical Exam 2 Vital Signs and Narrative: Vital Signs: Last Vital Signs Temp 97.7 F 01/20/25 10:50 Pulse 62 01/20/25 11:35 Resp 20 01/20/25 11:35 BP 109/66 01/20/25 11:35 Pulse Ox 100 01/20/25 10:50 O2 Del Method Nasal Cannula 01/20/25 10:50 O2 Flow Rate 2 01/20/25 10:50 BMI result Body Mass Index 21.5 Const: General: alert and awake Nutritional Appearance: average body habitus Orientation/consciousness: patient oriented x3 Resp: Other: dim right side Effort & Inspection: normal respiratory effort, able to speak in complete sentences, no respiratory distress and no use of accessory muscles Cardio: Rate: regular rate GI: Palpation (GI): Soft to palpation Neuro: General: patient oriented x3 Extrem: Other: left arm swelling General: No pedal edema Results Labs 01/21/25 05:11 01/21/25 05:11 Labs: Laboratory Results - last 24 hr 01/20/25 01/20/25 01/20/25 07:24 07:34 07:40 MCV 96.0 MCH 31.3 MCHC 32.6 RDW 14.9 Plt Count 120 L MPV 10.7 Immature Gran % (Auto) 2.0 H Neut % (Auto) 54.9 Lymph % (Auto) 31.5 [place] % (Auto) 9.9 Eos % (Auto) 1.1 Baso % (Auto) 0.6 Lymph # (Auto) 2.7 [place] # (Auto) 0.8 Eos # (Auto) 0.1 Baso # (Auto) 0.1 Abs Immat Gran (auto) 0.17 H Absolute Neuts (auto) 4.6 Absolute Nucleated RBC 0.070 H Nucleated RBC % (auto) 0.8 H VBG pH 7.39 VBG pCO2 37 VBG pO2 44 VBG HCO3 23 VBG O2 Saturation 60.0 VBG Base Excess -1.3 Anion Gap 14 Estim Creat Clear Calc 37.8 Estimated GFR 54 Random Glucose 132 H Calcium 8.8 Magnesium 2.2 Total Bilirubin 1.3 H AST 209 H ALT 38 H Alkaline Phosphatase 513 H Troponin I High Sens 25.3 H NT-Pro-B Natriuret Pep 752.5 H Total Protein 6.6 Albumin 3.3 L COVID-19 (CHIP) Negative COVID-19 Clin Com See Note Influenza Type A (JACKSON) Negative Influenza Type B (JACKSON) Negative Influenza A & B Note See Note 01/20/25 10:44 MCV MCH MCHC RDW Plt Count MPV Immature Gran % (Auto) Neut % (Auto) Lymph % (Auto) [place] % (Auto) Eos % (Auto) Baso % (Auto) Lymph # (Auto) [place] # (Auto) Eos # (Auto) Baso # (Auto) Abs Immat Gran (auto) Absolute Neuts (auto) Absolute Nucleated RBC Nucleated RBC % (auto) VBG pH VBG pCO2 VBG pO2 VBG HCO3 VBG O2 Saturation VBG Base Excess Anion Gap Estim Creat Clear Calc Estimated GFR Random Glucose Calcium Magnesium Total Bilirubin AST ALT Alkaline Phosphatase Troponin I High Sens 19.5 H NT-Pro-B Natriuret Pep Total Protein Albumin COVID-19 (CHIP) COVID-19 Clin Com Influenza Type A (JACKSON) Influenza Type B (JACKSON) Influenza A & B Note Imaging Radiologist's Impressions: Impressions Chest X-Ray 01/20/25 07:47 IMPRESSION: Cardiomegaly. The lungs are clear. Electronically signed by: Marvin Salinas MD 01/20/2025 08:[address] 01/20/25 09:56 IMPRESSION: No acute intracranial hemorrhage. Prior vascular insult, right MCA territory. Inflammatory versus infectious processes, left mastoid air cells and left tympanic cavity. Atherosclerosis disease, intracranial. Electronically signed by: Eugene Martin MD 01/20/2025 10:50 AM EDT RP Chest CTA 01/20/25 11:21 IMPRESSION: No acute pulmonary artery emboli. Numerous osseous metastasis without pathologic fracture. Atelectasis versus airspace disease, left lower lung lobe. Coronary artery disease and atherosclerosis disease. Hiatal hernia, moderate to large volume. Calcified plaques in the mitral valve. Small pericardial effusion. Fleischner guidelines were followed. Electronically signed by: Eugene Martin MD 01/20/2025 11:51 AM EDT RP Assessment and Plan (1) Breast cancer: Status: Chronic (2) Hypoxia: Status: Acute (3) Pneumonia: Qualifiers: Laterality: left Lung location: lower lobe of lung Pneumonia type: due to unspecified organism Qualified Code(s): J18.9 - Pneumonia, unspecified organism Status: Acute Plan This is an 85-year-old female with a history of bioprosthetic aortic valve, paroxysmal atrial fibrillation on Eliquis, history of stroke, history of breast cancer status post lumpectomy and radiation therapy in 2013, hiatal hernia who presents to the emergency department with shortness of breaths Acute respiratory failure with hypoxia Due to pneumonia check RPP, procalcitonin prn breathing treatments IV antibiotics Dyspnea likely due to above pneumonia CTA negative for PE troponin flat pro-BNP slightly elevated although based on patient age not likely to be due to CHF h/o paf and bioprosthetic aortic valve - will check echocardiogram monitor on tele IS Metastatic breast cancer CT neck and chest performed at [facility] on 12/20/2024 revealed infiltrative soft tissue density in the left subclavian region with surrounding the left subclavian artery and measures approximately 2.8 x 3.4 x 2.9 cm. 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 Innumerable small sclerotic foci throughout the spine, sacrum. Skin thickening inferiorly in the left breast which may reflect posttreatment change or malignancy outpatient bx of the left supraclavicular mass was scheduled for today and will need to be rescheduled As per outpatient oncology note-overall prognosis is poor given her poor performance status as well as intolerance to oral hormonal therapy (Anastrozole was recently resumed but pt did not tolerate) Elevated LFTs likely due to above probable mets to liver Paroxysmal atrial fibrillation continue digoxin, diltiazem, metoprolol continue AC with Eliquis, also on ASA, unclear why on both. will hold ASA for now thrombocytopenia relatively new monitor CBC, if drops below 70 consider discontinuing AC HTN continue above diltiazem, metoprolol as well as lisinopril h/o CVA continue statin hold asa for now as also on Eliquis DVT ppx - Eliquis Quality Stroke Does the patient have a stroke diagnosis?: No VTE Prior VTE?: No VTE Risk Level:: Medical - moderate - high VTE Device Contraindication: N/A - Device Ordered VTE Drug Contraindication: N/A - Med Ordered
--- NOTE | 2025-01-20 13:15 | HO.NURTONUR ---
Pt comes from home w/ c/o increasing COLLIER x 5 days. In ED pt was found to be hypoxic on RA @ 88% and placed on O2 @ 2L via NC now 94-95%. Pt has pmhx of breast CA and was scheduled for bx today w/ ? mets to lungs and brain. Pt also c/o hearing loss in her L ear although that had been ongoing. CT shows probable mets as well as pna LLL; head CT shows inflammation of MCA probable cause of hearing issue. At baseline pt ambulates w/ rollator at home and is pretty independent. Pt given rocephin for pna.
--- NOTE | 2025-01-20 13:44 | PHA.MEDREC ---
Addendum entered by Neisha George RPh 01/20/25 14:01: reviewed by bryn Original Note: Pharmacy Consult ? Medication Reconciliation Pharmacy has completed the medication reconciliation. Spoke with pt and she confirmed her medications. Pt confirmed she is no longer taking Anastrozole stating she started getting bad reactions from it; pt stated she started that in the beginning of the month and stopped it after 1 week of starting.
[2025-01-20 14:04] LABS: Procalcitonin 0.20 ng/mL
--- NOTE | 2025-01-20 17:00 | CA_ITS ---
Transthoracic Echocardiogram Patient (Last, First, Middle): Lora Herron, Gender: Female Date of : 1940 Age: 85 Procedure Date: 01/20/2025 Procedure Type: Transthoracic Echocardiogram Location: ER Height: 167.64 cm Weight: 60.33 kg BSA: 1.68 m2 Heart Rate: bpm BP: 131 / 63 mmHg Paper Steamer: TO Referring MD: Carolyn HANLEY Symptoms: sob Study Quality: Adequate Conclusions: - The left ventricular systolic function is hyperdynamic. The visually estimated ejection fraction is >70%. - There is moderate septal asymmetric hypertrophy. - A bioprosthetic aortic valve is present. The prosthetic aortic valve appears to be functioning normally. - There is moderate mitral annular calcification. - There is mild to moderate tricuspid valve regurgitation. - Moderate pulmonary hypertension is present. Findings Left Ventricle Normal left ventricular cavity size. There is mildly increased left ventricular wall thickness. The left ventricular systolic function is hyperdynamic. The visually estimated ejection fraction is >70%. There is no evidence of regional wall motion abnormalities. Evidence suggests grade I (mild) diastolic dysfunction. There is moderate septal asymmetric hypertrophy. Intraventricular and LVOT gradients noted. Peak basal LV gradient 27mmHg at rest; 56 mm Hg with Valsalva. Right Ventricle Normal right ventricular cavity size. There is mildly decreased right ventricular systolic function. Atria The left atrium is moderately dilated. The right atrium is normal in size. Aortic Valve A bioprosthetic aortic valve is present. The prosthetic aortic valve appears to be functioning normally. Mild para-valvular regurgitation. Mitral Valve There is moderate mitral annular calcification. There is mild mitral valve regurgitation. There is no mitral valve stenosis. Pulmonic Valve There is trace pulmonic valve regurgitation. Tricuspid Valve There is mild to moderate tricuspid valve regurgitation. Moderate pulmonary hypertension is present. Great Vessels The asc aorta is normal in size. Venous The inferior vena cava is mildly dilated. Pericardium/Pleural There is no evidence of pericardial effusion. Prior Study Comparison No significant change compared to prior study dated: 08/11/2023. Measurements 2D Linear Measurements IVSd: 1.28 0.6-0.9/0.6-1.0 cm LVIDd: 3.38 3.9-5.3/4.2-5.9 cm LVIDd Index: 2.01 2.4-3.2/2.2-3.1 cm/m2 LVIDs: 2.17 2.0-3.6 cm LVPWd: 1.04 0.7-1.1 cm LA Diam: 3.70 2.7-3.8/3.0-4.0 cm LAIDs Index: 2.20 1.5-2.3 cm/m2 LV Mass: 152.44 67-162/88-224 g LV Mass Index: 90.74 43-95/49-115 g/m2 LVOT Diam: 1.90 3.0+(-)1.3 cm 2D Systolic Function EF 4C: 76.20 >55% Mitral Valve MV Pk Dagoberto: 1.85 MV Pk Grad: 14.00 MV Pk E: 1.21 MV PK A: 1.68 MV Decel Time: 368.00 E/A: 0.70 E'Lateral: 4.46 E'Medial: 3.81 E/E' Med: 31.80 E/E' Lat: 27.10 PHT: 108.00 MVA PHT: 2.04 Decel Smyth: 3.29 Aortic Valve AoV Pk Dagoberto: 2.40 AoV Mn Dagoberto: 1.71 AoV VTI: 0.48 AoV Pk Grad: 23.00 Aov Mn Grad: 14.00 ESTRELLITA Cont.VTI: 2.38 LVOT LVOT Pk Dagoberto: 1.72 LVOT Mn Dagoberto: 1.28 LVOT VTI: 0.40 LVOT Pk Grad: 12.00 LVOT Mn Grad: 8.00 LVOT Diam: 1.90 LVOT Area: 2.84 Diastolic Function MV Pk E: 1.21 MV Pk A: 1.68 E/A: 0.70 E'Medial: 3.81 E/E' Med: 31.80 E' Laterial: 4.46 E/E' Lat: 27.10 Right Ventricle TAPSE (mm): 15.70 TVS' Dagoberto: 8.52 Tricuspid Valve TR Pk Dagoberto: 3.54 TR Pk Grad: 50.00 RA Press: 8.00 RVSP: 58.00 Great Vessels Aorta Ao Asc: 2.90 2.1-3.4 cm Updated in Other Vendor System with Status of Final Russell Ellis MD electronically signed on 01/21/2025 3:12:52 PM with status of Final
[2025-01-20] MEDS: 0.9 % Sodium Chloride Flush 3 ML SYRINGE IVFLUSH (18:11)
[2025-01-20] MEDS: Lactated Ringers 500 ML 999 ML IV (21:00)
--- NOTE | 2025-01-20 21:00 | PC.NURSE ---
Pt BPs found to be low 90/30s. Dr. Matias notified. Fluids ordered, and infusing as charted.
--- NOTE | 2025-01-20 22:29 | PC.NURSE ---
Pt HR noted to drop to 30s while patient sleeping. Dr. Florencio Hung notified @ [phone].
--- NOTE | 2025-01-20 22:54 | HO.NURTONUR ---
Addendum entered by Lori Johnson RN 01/21/25 16:15: Admit: Pneumonia Currently on 2L O2 NC maintaining O2 sat >92%. Labs: LFTs elevated, Trop 25.3 --> 19.5, BNP 752.5 Ventricular paced on cardiac cath tech- overnight her HR decreased into the 30s-40s. Throughout my care of pt, HR has stayed 60s-80s, no CP. 22g IV Right Wrist- previous IV infiltrated. She is getting IV abx, ceftriaxone and doxycycline. She was using the purewick most of this morning, wasn't working well d/t her moving around in the bed. She asked to use the commode instead, she did desat previously into the 70s per the night RN. She was insisting on using the commode again, we got her up to try and she did desat again into low 80s, she did take a bit to recover her O2 sat. She is also in agreement for no commode d/t her desatting. Original Note: 85 yof, A&Ox3. To ED for shortness of breath on exertion. Pt spO2 88% on ra. Pt hx of afib on eliquis, pacemaker, metastatic breast CA w/ mets to liver, lungs. Was scheduled for biopsy today for mass in left side of neck, was not able to go as she came to ED instead. CT- for PE. ? Pneumonia. Pt currently on 2L O2 maintaining spO2 97%. Pt has lymphedema in left arm. Pt has 20g IV in right forearm. Metoprolol, diltiazem and lisinopril were held d/t pt low blood pressure. Pt HR also noted to drop to 30s while sleeping. She was using bedside commode, while doing so spO2 dropped to 80s. Recommended bed keller to patient, as sge declined using a purewick.
[2025-01-21] VITALS (9 sets, daily range): BP systolic 105–177; BP diastolic 38–74; PULSE 59–80; RESP 14–22; TEMP 36.5–36.9; O2SAT 92–95
[2025-01-21 05:17] LABS: Hematocrit 39.4 % (37.0-47.0); Hemoglobin 12.5 g/dl (12.0-16.0); Mean Corpuscular HGB Conc 31.7 g/dl (31.0-35.0); Mean Corpuscular Hemoglobin 30.6 pg (27.0-33.0); Mean Corpuscular Volume 96.6 fL (80.0-98.0); NRBC Abs Auto 0.070 X10*3/uL (0.0-0.012); NRBC Pct Auto 0.8 /100WBC (0.0-0.2); Platelet Count 110 X10*3/uL (160-400); Red Blood Count 4.08 X10*6/uL (4.20-5.50); White Blood Count 9.1 X10*3/uL (4.8-10.8)
[2025-01-21 05:44] LABS: Anion Gap 12 (12-20); Blood Urea Nitrogen 17 mg/dL (9-16); Calcium 8.0 mg/dL (8.4-10.2); Carbon Dioxide 21 mmol/L (22-29); Chloride 112 mmol/L (96-108); Creatinine Clr Calc Pharmacy 36.3; Estimated Glomerular Filt Rate 51; Potassium 4.2 mmol/L (3.3-5.1); Sodium 141 mmol/L (135-145)
[2025-01-21] MEDS: 0.9 % Sodium Chloride Flush 3 ML SYRINGE IVFLUSH ×3 (09:11→20:14)
[2025-01-21 09:43] LABS: Chlamydia pneumoniae PCR Not Detected (Not Detect.); Coronavirus 229E PCR Not Detected (Not Detect.); Coronavirus HKU1 PCR Not Detected (Not Detect.); Coronavirus NL63 PCR Not Detected (Not Detect.); Coronavirus OC43 PCR Not Detected (Not Detect.); RSV PCR Not Detected (Not Detect.); Rhino/Enterovirus PCR Not Detected (Not Detect.)
[2025-01-21 09:58] LABS: Influenza A H1 PCR Not Detected (Not Detect.); Influenza A H1-2009 PCR Not Detected (Not Detect.); Influenza A H3 PCR Not Detected (Not Detect.); SARS-CoV-2 PCR Not Detected (Not Detect.)
--- NOTE | 2025-01-21 15:34 | MHC.CM.PN ---
Denisa 01/21/25, Pt. lives alone, PCP is confirmed: Hansel Gerber, HCP is her friend Lyric, no copy on file and pt. declined to complete a new form here. For home care services, pt. has a [employer] once a week for chores. For DME, she uses a walker and rollator. DCP: home with services, pt. can arrange a ride home at [place], CM to follow for DC needs.
--- NOTE | 2025-01-21 15:43 | MHC.EDTECH ---
pt requesting to get up to commode to void.n
--- NOTE | 2025-01-21 15:45 | MHC.EDTECH ---
Pt requesting to use commode to void instead of purewick. RN notified. Pt up to commode 1 assist. Pt desats to low 80's. RN aware. Pt resting comfortable in bed. O2 sats back to 95% on 2L nasal cannula.
--- NOTE | 2025-01-21 16:56 | P.PNIM_ITS ---
Subjective Subjective Date of Service: 01/21/25 Interval History: Complaints of persistent dyspnea especially on exertion. Feels more comfortable on oxygen. Hypoxic when oxygen removed Review of Systems Review of Systems: Yes all other systems are reviewed and are negative Physical Exam 2 Exam: Exam: General: A&O x3, oriented to time place person and situation, comfortable, no pain Cardiac: S1, S2 auscultated with no S3/4, no MRG. Well perfused. Elevated JVP to the bilateral angle of mandible Respiratory: Reduced breath sounds at the bases bilaterally, with fine crepitations. Hypoxic, on 2 L NC O2. GI/ : No abdominal pain on palpation, no masses or distentions. MSK: Normal ambulation without pain at bony prominences or musculature Extremities: No lower extremity edema Neurological: Normal neurological examination on overview, without obvious CN II-XII abnormalities. Vital Signs: Vital Signs: Last Vital Signs Temp 98 F 01/21/25 16:33 Pulse 80 01/21/25 16:33 Resp 16 01/21/25 16:33 BP 151/56 H 01/21/25 16:33 Pulse Ox 95 01/21/25 16:33 O2 Del Method Nasal Cannula 01/21/25 16:33 O2 Flow Rate 2 01/21/25 16:33 BMI result Body Mass Index 21.5 Objective Data Active Medications Acetaminophen (Acetaminophen 325 Mg Tablet) 650 mg PO Q6H PRN PRN Reason: Pain, Mild 1-3,fever,headache Albuterol/Ipratropium (Albuterol/Iprat 2.5/0.5mg 3 Ml Ampul.Neb) 3 ml INHALE RQ6H WHILE AWAKE PRN PRN Reason: Shortness of Breath Apixaban (Apixaban 2.5 Mg Tablet) 2.5 mg PO BID [facility] Last Admin: 01/21/25 09:12 Dose: 2.5 mg Documented By: SPENCER Atorvastatin Calcium (Atorvastatin Calcium 80 Mg Tablet) 80 mg PO BEDTIME [facility] Last Admin: 01/20/25 21:19 Dose: 80 mg Documented By: MARIA T Calcium Carbonate (Calcium Carbonate 750 Mg Tab.Chew) 750 mg PO Q4H PRN PRN Reason: Heartburn Digoxin (Digoxin 0.125 Mg Tablet) 0.125 mg PO DAILY [facility]; Protocol Last Admin: 01/21/25 09:21 Dose: Not Given Documented By: SPENCER Non-Admin Reason: See Note Diltiazem HCl (Diltiazem Hcl Cd 240 Mg Cap.Er.Deg) 240 mg PO BEDTIME [facility]; Protocol Last Admin: 01/20/25 21:13 Dose: Not Given Documented By: MARIA T Non-Admin Reason: Decreased Blood Pressure Furosemide (Furosemide 20 Mg/2 Ml Vial) 20 mg IVPUSH DAILY [facility]; Protocol Ceftriaxone Sodium 1 gm/ (Sodium Chloride) 50 mls @ 100 mls/hr IV Q24H [facility] Last Infusion: 01/21/25 14:25 Dose: Infused Documented By: SPENCER Doxycycline Hyclate 100 mg/ (Sodium Chloride) 250 mls @ 166.67 mls/hr IV Q12H [facility] Last Infusion: 01/21/25 16:48 Dose: Infused Documented By: SPENCER Lisinopril (Lisinopril 2.5 Mg Tablet) 2.5 mg PO BEDTIME [facility]; Protocol Last Admin: 01/20/25 21:13 Dose: Not Given Documented By: MARIA T Non-Admin Reason: Decreased Blood Pressure Magnesium Hydroxide (Milk Of Magnesia 30 Ml Oral.Susp) 30 ml PO DAILY PRN PRN Reason: Constipation Melatonin (Melatonin 3 Mg Tablet) 6 mg PO BEDTIME PRN PRN Reason: Insomnia Metoprolol Succinate (Metoprolol Succinate Er 25 Mg Tab.Er.24h) 75 mg PO BEDTIME [facility]; Protocol Last Admin: 01/20/25 21:14 Dose: Not Given Documented By: MARIA T Non-Admin Reason: Decreased Blood Pressure Sodium Chloride (0.9 % Sodium Chloride Flush 3 Ml Syringe) 3 ml IVFLUSH QSHIFT [facility] Last Admin: 01/21/25 16:15 Dose: Not Given Documented By: SPENCER Non-Admin Reason: IV Running Labs 01/21/25 05:11 01/21/25 05:11 Labs: Laboratory Results - last 24 hr 01/20/25 01/21/25 18:12 05:11 MCV 96.6 MCH 30.6 MCHC 31.7 RDW 15.3 Plt Count 110 L MPV 10.3 Absolute Nucleated RBC 0.070 H Nucleated RBC % (auto) 0.8 H Anion Gap 12 Estim Creat Clear Calc 36.3 Estimated GFR 51 Random Glucose 80 Calcium 8.0 L D Respiratory Panel Peters See Note Adenovirus (Rapid PCR) Not Detected B.pert (TEM-PCR) Not Detected B.parapertussis DNA PCR Not Detected C. pneumoniae DNA (PCR) Not Detected Coronavirus OC43 (PCR) Not Detected Coronavirus HKU1 (PCR) Not Detected Coronavirus 229E (PCR) Not Detected Coronavirus NL63 (PCR) Not Detected Human Metapneumovir PCR Not Detected Influenza A (RT-PCR) Not Detected Influenza A (H1) PCR Not Detected Influ A (H1/09) PCR Not Detected Influenza A (H3) PCR Not Detected Influenza B (RT-PCR) Not Detected M. pneumoniae (PCR) Not Detected Parainfluenza 1 (PCR) Not Detected Parainfluenza 2 (PCR) Not Detected Parainfluenza 3 (PCR) Not Detected Parainfluenza 4 (PCR) Not Detected RSV (PCR) Not Detected Entero/Rhino (PCR) Not Detected SARS-CoV-2 RNA (RT-PCR) Not Detected Assessment and Plan (1) Essential hypertension: Status: Acute (2) Non-rheumatic aortic stenosis: Status: Acute (3) Status post transcatheter aortic valve replacement: Status: Acute (4) Persistent atrial fibrillation: Status: Acute (5) Hypoxia: Status: Acute (6) Embolic stroke: Status: Acute (7) Acute exacerbation of CHF (congestive heart failure): Status: Acute Plan 85-year-old female with a history of bioprosthetic aortic valve, ppm, paroxysmal atrial fibrillation on Eliquis, history of stroke, history of breast cancer status post lumpectomy and radiation therapy in 2013, hiatal hernia who presents to the emergency department with shortness of breaths Acute respiratory failure with hypoxia Community-acquired pneumonia Due to pneumonia Currently on antibiotics Paroxysmal atrial fibrillation Bioprosthetic aortic valve PPM Acute CHF exacerbation Furosemide 20 mg IV OD p.o. Daily weights Intake/output q.6 hourly Cardiac diet with 1.5 L fluid restriction Echocardiogram continue digoxin, diltiazem, metoprolol continue AC with Eliquis, also on ASA, unclear why on both. will hold ASA for now Metastatic breast cancer CT neck and chest performed at [facility] on 12/20/2024 revealed infiltrative soft tissue density in the left subclavian region with surrounding the left subclavian artery and measures approximately 2.8 x 3.4 x 2.9 cm. 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 Innumerable small sclerotic foci throughout the spine, sacrum. Skin thickening inferiorly in the left breast which may reflect posttreatment change or malignancy outpatient bx of the left supraclavicular mass was scheduled for today and will need to be rescheduled As per outpatient oncology note-overall prognosis is poor given her poor performance status as well as intolerance to oral hormonal therapy (Anastrozole was recently resumed but pt did not tolerate) We will consult Oncology to inform them of the patient's admission and for outpatient Flattening Elevated LFTs likely due to above probable mets to liver thrombocytopenia relatively new monitor CBC, if drops below 70 consider discontinuing AC HTN continue above diltiazem, metoprolol as well as lisinopril h/o CVA continue statin hold asa for now as also on Eliquis QUALITY METRICS - VTE: Apixaban - CODE STATUS: DNR DNI - DIET: Cardiac diet 1.5 L fluid restriction Quality Stroke Does the patient have a stroke diagnosis?: No VTE Prior VTE?: No VTE Risk Level:: Medical - moderate - high VTE Device Contraindication: N/A - Device Ordered VTE Drug Contraindication: N/A - Med Ordered
[2025-01-21] MEDS: Furosemide 20 MG/2 ML VIAL IVPUSH (18:10)
[2025-01-21] MEDS: Metoprolol Succinate ER 25 MG TAB.ER.24H 75 MG PO (20:13)
[2025-01-21] MEDS: dilTIAZem HCL CD 240 MG CAP.ER.DEG PO (20:14)
[2025-01-22 03:29] VITALS: BP 116/58; PULSE 73; RESP 16; TEMP 36.6; O2SAT 94
[2025-01-22 07:45] VITALS: BP 99/54; PULSE 60; RESP 18; TEMP 36.5; O2SAT 93
[2025-01-22 11:09] LABS: Anion Gap 12 (12-20); Blood Urea Nitrogen 17 mg/dL (9-16); Calcium 8.4 mg/dL (8.4-10.2); Carbon Dioxide 24 mmol/L (22-29); Chloride 112 mmol/L (96-108); Creatinine Clr Calc Pharmacy 31.7; Estimated Glomerular Filt Rate 44; Magnesium 2.1 mg/dL (1.6-2.6); Potassium 3.9 mmol/L (3.3-5.1); Sodium 144 mmol/L (135-145)
[2025-01-22 11:30] VITALS: BP 141/61; PULSE 60; RESP 16; TEMP 36.4; O2SAT 93
[2025-01-22 15:00] VITALS: BP 120/57; PULSE 60; RESP 12; TEMP 36.8; O2SAT 93
--- NOTE | 2025-01-22 15:50 | HO.PM.IMPN ---
Subjective Subjective Date of Service: 01/22/25 Interval History: Feels much better today compared to yesterday. Reports that her breathing has much improved. Remains on O2, with hypoxia on attempting to remove in mobilize the patient. Review of Systems Review of Systems: Yes all other systems are reviewed and are negative Physical Exam Exam: Exam: General: A&O x3, oriented to time place person and situation, comfortable, no pain Cardiac: S1, S2 auscultated with no S3/4, no MRG. Well perfused. Elevated JVP to the bilateral angle of mandible Respiratory: Reduced breath sounds at the bases bilaterally, with fine crepitations. Hypoxic, on 2 L NC O2. GI/ : No abdominal pain on palpation, no masses or distentions. MSK: Normal ambulation without pain at bony prominences or musculature Extremities: No lower extremity edema Neurological: Normal neurological examination on overview, without obvious CN II-XII abnormalities. Vital Signs: Vital Signs: Last Vital Signs Temp 98.2 F 01/22/25 15:00 Pulse 60 01/22/25 15:00 Resp 12 01/22/25 15:00 BP 120/57 L 01/22/25 15:00 Pulse Ox 93 01/22/25 15:00 O2 Del Method Nasal Cannula 01/22/25 15:00 O2 Flow Rate 2 01/22/25 15:00 BMI result Body Mass Index 21.5 Objective Data Active Medications Acetaminophen (Acetaminophen 325 Mg Tablet) 650 mg PO Q6H PRN PRN Reason: Pain, Mild 1-3,fever,headache Albuterol/Ipratropium (Albuterol/Iprat 2.5/0.5mg 3 Ml Ampul.Neb) 3 ml INHALE RQ6H WHILE AWAKE PRN PRN Reason: Shortness of Breath Apixaban (Apixaban 2.5 Mg Tablet) 2.5 mg PO BID [facility] Last Admin: 01/22/25 10:13 Dose: 2.5 mg Documented By: DARWIN Atorvastatin Calcium (Atorvastatin Calcium 80 Mg Tablet) 80 mg PO BEDTIME [facility] Last Admin: 01/21/25 20:13 Dose: 80 mg Documented By: OFELIA Calcium Carbonate (Calcium Carbonate 750 Mg Tab.Chew) 750 mg PO Q4H PRN PRN Reason: Heartburn Digoxin (Digoxin 0.125 Mg Tablet) 0.125 mg PO DAILY [facility]; Protocol Last Admin: 01/22/25 10:13 Dose: 0.125 mg Documented By: DARWIN Diltiazem HCl (Diltiazem Hcl Cd 240 Mg Cap.Er.Deg) 240 mg PO BEDTIME [facility]; Protocol Last Admin: 01/21/25 20:14 Dose: 240 mg Documented By: OFELIA Furosemide (Furosemide 20 Mg/2 Ml Vial) 20 mg IVPUSH DAILY [facility]; Protocol On Hold: 01/22/25 09:11 Last Admin: 01/22/25 10:15 Dose: Not Given Documented By: DARWIN Non-Admin Reason: Physician Held Med Ceftriaxone Sodium 1 gm/ (Sodium Chloride) 50 mls @ 100 mls/hr IV Q24H [facility] Last Infusion: 01/21/25 14:25 Dose: Infused Documented By: SPENCER Doxycycline Hyclate 100 mg/ (Sodium Chloride) 250 mls @ 166.67 mls/hr IV Q12H [facility] Last Infusion: 01/22/25 03:35 Dose: Infused Documented By: OFELIA Lisinopril (Lisinopril 2.5 Mg Tablet) 2.5 mg PO BEDTIME [facility]; Protocol Last Admin: 01/21/25 20:13 Dose: 2.5 mg Documented By: OFELIA Magnesium Hydroxide (Milk Of Magnesia 30 Ml Oral.Susp) 30 ml PO DAILY PRN PRN Reason: Constipation Melatonin (Melatonin 3 Mg Tablet) 6 mg PO BEDTIME PRN PRN Reason: Insomnia Metoprolol Succinate (Metoprolol Succinate Er 25 Mg Tab.Er.24h) 75 mg PO BEDTIME [facility]; Protocol Last Admin: 01/21/25 20:13 Dose: 75 mg Documented By: OFELIA Sodium Chloride (0.9 % Sodium Chloride Flush 3 Ml Syringe) 3 ml IVFLUSH QSHIFT [facility] Last Admin: 01/22/25 10:14 Dose: Not Given Documented By: DARWIN Non-Admin Reason: No Access Labs 01/21/25 05:11 01/22/25 10:37 Labs: Laboratory Results - last 24 hr 01/22/25 10:37 Anion Gap 12 Estim Creat Clear Calc 31.7 Estimated GFR 44 Random Glucose 102 Calcium 8.4 Magnesium 2.1 Assessment and Plan (1) Acute exacerbation of CHF (congestive heart failure): Status: Acute (2) Essential hypertension: Status: Acute (3) Status post transcatheter aortic valve replacement: Status: Acute (4) Persistent atrial fibrillation: Status: Acute (5) Breast cancer: Status: Chronic (6) Embolic stroke: Status: Acute Plan 85-year-old female with a history of bioprosthetic aortic valve, ppm, paroxysmal atrial fibrillation on Eliquis, history of stroke, history of breast cancer status post lumpectomy and radiation therapy in 2013, hiatal hernia who presents to the emergency department with shortness of breaths Acute respiratory failure with hypoxia Community-acquired pneumonia Due to pneumonia Currently on antibiotics Paroxysmal atrial fibrillation Bioprosthetic aortic valve PPM Acute CHF exacerbation Furosemide 20 mg IV OD p.o. Daily weights Intake/output q.6 hourly Cardiac diet with 1.5 L fluid restriction Echocardiogram continue digoxin, diltiazem, metoprolol continue AC with Eliquis, also on ASA, unclear why on both. will hold ASA for now Metastatic breast cancer CT neck and chest performed at [facility] on 12/20/2024 revealed infiltrative soft tissue density in the left subclavian region with surrounding the left subclavian artery and measures approximately 2.8 x 3.4 x 2.9 cm. 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 Innumerable small sclerotic foci throughout the spine, sacrum. Skin thickening inferiorly in the left breast which may reflect posttreatment change or malignancy outpatient bx of the left supraclavicular mass was scheduled for today and will need to be rescheduled As per outpatient oncology note-overall prognosis is poor given her poor performance status as well as intolerance to oral hormonal therapy (Anastrozole was recently resumed but pt did not tolerate) We will consult Oncology to inform them of the patient's admission and for outpatient Flattening Elevated LFTs likely due to above probable mets to liver Thrombocytopenia relatively new monitor CBC, if drops below 70 consider discontinuing AC HTN continue above diltiazem, metoprolol as well as lisinopril H/o CVA continue statin hold asa for now as also on Eliquis QUAL[facility] - VTE: Apixaban - CODE STATUS: DNR DNI - DIET: Cardiac diet 1.5 L fluid restriction Total time managing care of this patient today: 35 minutes. Quality Stroke Does the patient have a stroke diagnosis?: No VTE Prior VTE?: No VTE Risk Level:: Medical - moderate - high VTE Device Contraindication: N/A - Device Ordered VTE Drug Contraindication: N/A - Med Ordered
[2025-01-22] MEDS: 0.9 % Sodium Chloride Flush 3 ML SYRINGE IVFLUSH ×2 (16:06→20:27)
[2025-01-22 19:42] VITALS: BP 146/67; PULSE 63; RESP 16; TEMP 36.4; O2SAT 95
[2025-01-22] MEDS: dilTIAZem HCL CD 240 MG CAP.ER.DEG PO (20:26)
[2025-01-22] MEDS: Metoprolol Succinate ER 25 MG TAB.ER.24H 75 MG PO (20:26)
[2025-01-22 23:50] VITALS: BP 113/55; PULSE 58; RESP 17; TEMP 37.4; O2SAT 95
[2025-01-23 03:49] VITALS: BP 123/58; PULSE 69; RESP 17; TEMP 36.9; O2SAT 95
[2025-01-23 07:41] VITALS: BP 130/60; PULSE 66; RESP 18; TEMP 36.6; O2SAT 96
[2025-01-23] MEDS: 0.9 % Sodium Chloride Flush 3 ML SYRINGE IVFLUSH ×2 (08:45→20:58)
--- NOTE | 2025-01-23 09:03 | MHC.CM.PN ---
PATIENT WAS CHANGED TO INPATIENT, IMM GIVEN 01/23.
[2025-01-23 11:59] VITALS: BP 111/54; PULSE 66; RESP 20; TEMP 36.9; O2SAT 96
[2025-01-23 12:30] LABS: Anion Gap 13 (12-20); Blood Urea Nitrogen 19 mg/dL (9-16); Calcium 8.1 mg/dL (8.4-10.2); Carbon Dioxide 21 mmol/L (22-29); Chloride 110 mmol/L (96-108); Creatinine Clr Calc Pharmacy 36.0; Estimated Glomerular Filt Rate 51; Potassium 3.9 mmol/L (3.3-5.1); Sodium 140 mmol/L (135-145)
--- NOTE | 2025-01-23 14:20 | HO.PM.IMPN ---
Subjective Subjective Date of Service: 01/23/25 Interval History: Had difficulty with falling asleep last night. Reports feeling more tired today. Reports her breathing has improved, however attempted walking, the patient desaturated to 88% SpO2 on 3 L. Review of Systems Review of Systems: Yes all other systems are reviewed and are negative Physical Exam Exam: Exam: General: A&O x3, oriented to time place person and situation, comfortable, no pain Cardiac: S1, S2 auscultated with no S3/4, no MRG. Well perfused. Elevated JVP to the bilateral angle of mandible Respiratory: Reduced breath sounds at the bases bilaterally, with fine crepitations. Hypoxic, on 2 L NC O2. GI/ : No abdominal pain on palpation, no masses or distentions. MSK: Normal ambulation without pain at bony prominences or musculature Extremities: No lower extremity edema Neurological: Normal neurological examination on overview, without obvious CN II-XII abnormalities. Vital Signs: Vital Signs: Last Vital Signs Temp 98.5 F 01/23/25 11:59 Pulse 66 01/23/25 11:59 Resp 20 01/23/25 11:59 BP 111/54 L 01/23/25 11:59 Pulse Ox 96 01/23/25 11:59 O2 Del Method Nasal Cannula 01/23/25 11:59 O2 Flow Rate 3 01/23/25 11:59 BMI result Body Mass Index 21.5 Objective Data Active Medications Acetaminophen (Acetaminophen 325 Mg Tablet) 650 mg PO Q6H PRN PRN Reason: Pain, Mild 1-3,fever,headache Albuterol/Ipratropium (Albuterol/Iprat 2.5/0.5mg 3 Ml Ampul.Neb) 3 ml INHALE RQ6H WHILE AWAKE PRN PRN Reason: Shortness of Breath Apixaban (Apixaban 2.5 Mg Tablet) 2.5 mg PO BID [facility] Last Admin: 01/23/25 08:45 Dose: 2.5 mg Documented By: DARWIN Atorvastatin Calcium (Atorvastatin Calcium 80 Mg Tablet) 80 mg PO BEDTIME [facility] Last Admin: 01/22/25 20:26 Dose: 80 mg Documented By: MILLIE Calcium Carbonate (Calcium Carbonate 750 Mg Tab.Chew) 750 mg PO Q4H PRN PRN Reason: Heartburn Digoxin (Digoxin 0.125 Mg Tablet) 0.125 mg PO DAILY [facility]; Protocol Last Admin: 01/23/25 08:44 Dose: 0.125 mg Documented By: DARWIN Diltiazem HCl (Diltiazem Hcl Cd 240 Mg Cap.Er.Deg) 240 mg PO BEDTIME [facility]; Protocol Last Admin: 01/22/25 20:26 Dose: 240 mg Documented By: MILLIE Furosemide (Furosemide 20 Mg/2 Ml Vial) 20 mg IVPUSH DAILY [facility]; Protocol On Hold: 01/22/25 09:11 Last Admin: 01/22/25 10:15 Dose: Not Given Documented By: DARWIN Non-Admin Reason: Physician Held Med Ceftriaxone Sodium 1 gm/ (Sodium Chloride) 50 mls @ 100 mls/hr IV Q24H [facility] Last Admin: 01/23/25 13:02 Dose: 100 mls/hr Documented By: DARWIN Doxycycline Hyclate 100 mg/ (Sodium Chloride) 250 mls @ 166.67 mls/hr IV Q12H [facility] Last Admin: 01/23/25 13:53 Dose: 166.67 mls/hr Documented By: DARWIN Lisinopril (Lisinopril 2.5 Mg Tablet) 2.5 mg PO BEDTIME [facility]; Protocol Last Admin: 01/22/25 20:27 Dose: 2.5 mg Documented By: MILLIE Magnesium Hydroxide (Milk Of Magnesia 30 Ml Oral.Susp) 30 ml PO DAILY PRN PRN Reason: Constipation Melatonin (Melatonin 3 Mg Tablet) 6 mg PO BEDTIME PRN PRN Reason: Insomnia Metoprolol Succinate (Metoprolol Succinate Er 25 Mg Tab.Er.24h) 75 mg PO BEDTIME [facility]; Protocol Last Admin: 01/22/25 20:26 Dose: 75 mg Documented By: MILLIE Sodium Chloride (0.9 % Sodium Chloride Flush 3 Ml Syringe) 3 ml IVFLUSH QSHIFT [facility] Last Admin: 01/23/25 08:45 Dose: 3 ml Documented By: DARWIN Labs 01/21/25 05:11 01/23/25 11:55 Labs: Laboratory Results - last 24 hr 01/23/25 11:55 Anion Gap 13 Estim Creat Clear Calc 36.0 Estimated GFR 51 Random Glucose 227 H Calcium 8.1 L Assessment and Plan (1) Acute exacerbation of CHF (congestive heart failure): Status: Acute (2) Persistent atrial fibrillation: Status: Acute (3) Breast cancer: Status: Chronic (4) Embolic stroke: Status: Acute (5) Pneumonia: Status: Acute (6) Acute hypoxemic respiratory failure: Status: Acute Plan 85-year-old female with a history of bioprosthetic aortic valve, ppm, paroxysmal atrial fibrillation on Eliquis, history of stroke, history of breast cancer status post lumpectomy and radiation therapy in 2013, hiatal hernia who presents to the emergency department with shortness of breaths Acute respiratory failure with hypoxia Community-acquired pneumonia Due to pneumonia Currently on antibiotics Paroxysmal atrial fibrillation Bioprosthetic aortic valve PPM Acute CHF exacerbation Furosemide 20 mg IV OD p.o. Daily weights Intake/output q.6 hourly Cardiac diet with 1.5 L fluid restriction Echocardiogram continue digoxin, diltiazem, metoprolol continue AC with Eliquis, also on ASA, unclear why on both. will hold ASA for now Metastatic breast cancer CT neck and chest performed at [facility] on 12/20/2024 revealed infiltrative soft tissue density in the left subclavian region with surrounding the left subclavian artery and measures approximately 2.8 x 3.4 x 2.9 cm. 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 Innumerable small sclerotic foci throughout the spine, sacrum. Skin thickening inferiorly in the left breast which may reflect posttreatment change or malignancy outpatient bx of the left supraclavicular mass was scheduled for today and will need to be rescheduled As per outpatient oncology note-overall prognosis is poor given her poor performance status as well as intolerance to oral hormonal therapy (Anastrozole was recently resumed but pt did not tolerate) We will consult Oncology to inform them of the patient's admission and for outpatient Flattening Elevated LFTs likely due to above probable mets to liver Thrombocytopenia relatively new monitor CBC, if drops below 70 consider discontinuing AC HTN continue above diltiazem, metoprolol as well as lisinopril H/o CVA continue statin hold asa for now as also on Eliquis [employer] [employer] - VTE: Apixaban - CODE STATUS: DNR DNI - DIET: Cardiac diet 1.5 L fluid restriction Total time managing care of this patient today: 35 minutes. Quality Stroke Does the patient have a stroke diagnosis?: No VTE Prior VTE?: No VTE Risk Level:: Medical - moderate - high VTE Device Contraindication: N/A - Device Ordered VTE Drug Contraindication: N/A - Med Ordered
[2025-01-23 15:06] VITALS: BP 98/50; PULSE 52; RESP 16; TEMP 36.6; O2SAT 98
[2025-01-23 17:11] VITALS: BP 132/59; PULSE 64; RESP 18; TEMP 36.2; O2SAT 92
[2025-01-23 19:34] VITALS: BP 112/53; PULSE 65; RESP 18; TEMP 36.1; O2SAT 95
[2025-01-23] MEDS: Metoprolol Succinate ER 25 MG TAB.ER.24H 75 MG PO (20:58)
[2025-01-23] MEDS: dilTIAZem HCL CD 240 MG CAP.ER.DEG PO (20:58)
[2025-01-24] VITALS (9 sets, daily range): BP systolic 101–124; BP diastolic 52–85; PULSE 51–65; RESP 16–17; TEMP 35.8–36.9; O2SAT 88–96
--- NOTE | 2025-01-24 09:01 | P.PNIM_ITS ---
Subjective Subjective Date of Service: 01/24/25 Interval History: We will continue IV antibiotics We will check home O2 eval PTOT Poor prognosis per prior documentation by Heme-Onc dated 01/12/2025 Heme-Onc consulted about prognostication Review of Systems Review of Systems: Yes all other systems are reviewed and are negative Physical Exam 2 Exam: Exam: General: AOx3, appears frail and deconditioned and was sleeping when I entered the room. Resp: Bilateral rales , rhonchi right greater than left CVS: S1, S2, RRR GI: +BS, NT, no distention Vital Signs: Vital Signs: Last Vital Signs Temp 97.6 F 01/24/25 07:12 Pulse 59 01/24/25 07:12 Resp 16 01/24/25 07:12 BP 108/55 L 01/24/25 07:12 Pulse Ox 96 01/24/25 07:12 O2 Del Method Nasal Cannula 01/24/25 07:12 O2 Flow Rate 3 01/24/25 07:12 BMI result Body Mass Index 21.5 Objective Data Active Medications Acetaminophen (Acetaminophen 325 Mg Tablet) 650 mg PO Q6H PRN PRN Reason: Pain, Mild 1-3,fever,headache Albuterol/Ipratropium (Albuterol/Iprat 2.5/0.5mg 3 Ml Ampul.Neb) 3 ml INHALE RQ6H WHILE AWAKE PRN PRN Reason: Shortness of Breath Apixaban (Apixaban 2.5 Mg Tablet) 2.5 mg PO BID [facility] Last Admin: 01/24/25 08:04 Dose: 2.5 mg Documented By: SUSAN Atorvastatin Calcium (Atorvastatin Calcium 80 Mg Tablet) 80 mg PO BEDTIME [facility] Last Admin: 01/23/25 20:58 Dose: 80 mg Documented By: FRANK Calcium Carbonate (Calcium Carbonate 750 Mg Tab.Chew) 750 mg PO Q4H PRN PRN Reason: Heartburn Digoxin (Digoxin 0.125 Mg Tablet) 0.125 mg PO DAILY [facility]; Protocol Last Admin: 01/24/25 08:04 Dose: 0.125 mg Documented By: SUSAN Diltiazem HCl (Diltiazem Hcl Cd 240 Mg Cap.Er.Deg) 240 mg PO BEDTIME [facility]; Protocol Last Admin: 01/23/25 20:58 Dose: 240 mg Documented By: FRANK Doxycycline Monohydrate (Doxycycline Monohydrate 100 Mg Capsule) 100 mg PO Q12H [facility] Last Admin: 01/23/25 22:04 Dose: 100 mg Documented By: FRANK Furosemide (Furosemide 20 Mg/2 Ml Vial) 20 mg IVPUSH DAILY [facility]; Protocol On Hold: 01/22/25 09:11 Last Admin: 01/22/25 10:15 Dose: Not Given Documented By: DARWIN Non-Admin Reason: Physician Held Med Ceftriaxone Sodium 1 gm/ (Sodium Chloride) 50 mls @ 100 mls/hr IV Q24H [facility] Last Infusion: 01/23/25 14:23 Dose: Infused Documented By: DARWIN Lisinopril (Lisinopril 2.5 Mg Tablet) 2.5 mg PO BEDTIME [facility]; Protocol Last Admin: 01/23/25 20:57 Dose: 2.5 mg Documented By: FRANK Magnesium Hydroxide (Milk Of Magnesia 30 Ml Oral.Susp) 30 ml PO DAILY PRN PRN Reason: Constipation Melatonin (Melatonin 3 Mg Tablet) 6 mg PO BEDTIME PRN PRN Reason: Insomnia Metoprolol Succinate (Metoprolol Succinate Er 25 Mg Tab.Er.24h) 75 mg PO BEDTIME [facility]; Protocol Last Admin: 01/23/25 20:58 Dose: 75 mg Documented By: FRANK Sodium Chloride (0.9 % Sodium Chloride Flush 3 Ml Syringe) 3 ml IVFLUSH QSHIFT [facility] Last Admin: 01/24/25 08:06 Dose: Not Given Documented By: SUSAN Non-Admin Reason: IV Running Labs 01/21/25 05:11 01/23/25 11:55 Labs: Laboratory Results - last 24 hr 01/23/25 11:55 Anion Gap 13 Estim Creat Clear Calc 36.0 Estimated GFR 51 Random Glucose 227 H Calcium 8.1 L Assessment and Plan (1) Acute exacerbation of CHF (congestive heart failure): Status: Acute (2) Persistent atrial fibrillation: Status: Acute (3) Breast cancer: Status: Chronic (4) Embolic stroke: Status: Acute (5) Pneumonia: Status: Acute (6) Acute hypoxemic respiratory failure: Status: Acute Plan Patient is a 85-year-old female with a h/o bioprosthetic aortic valve, ppm, paroxysmal AFib on Eliquis, h/o stroke, 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 Guarded prognosis. AHRF 2/2 pneumonia versus breast cancer resurgence in a patient with poor performance status and intolerance to hormonal therapy with poor prognostication For pneumonia she is being treated with IV antibiotics-we will continue for another day and switch to p.o. Heme-Onc consulted for breast cancer workup as her left pneumonia could also be in the setting of exudative effusion Appreciate Heme-Onc input regarding prognostication We will check home O2 eval PTOT SDR versus home with VNA based on PT recommendations Biopsy Likely we will be done inpatient patient is already admitted (was to get biopsy outpatient today) Paroxysmal atrial fibrillation -continue Eliquis, diltiazem, metoprolol, we will check daily labs and monitor on telemetry Bioprosthetic aortic valve-continue Eliquis PPM-monitored on telemetry and electrolytes being checked and repleted to goal Acute CHF exacerbation switch to po bid Given patient's Prior CVA-we will continue aspirin, we will continue treating Eliquis for AFib and bioprosthetic AV valve Metastatic breast cancer CT neck and chest performed at [facility] on 12/20/2024 revealed infiltrative soft tissue density in the left subclavian region with surrounding the left subclavian artery and measures approximately 2.8 x 3.4 x 2.9 cm. 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 Innumerable small sclerotic foci throughout the spine, sacrum. Skin thickening inferiorly in the left breast which may reflect posttreatment change or malignancy outpatient bx of the left supraclavicular mass was scheduled for today and will need to be rescheduled As per outpatient oncology note-overall prognosis is poor given her poor performance status as well as intolerance to oral hormonal therapy (Anastrozole was recently resumed but pt did not tolerate) Appreciate oncology input as this would likely help us with discharge planning Elevated LFTs likely due to above probable mets to liver Thrombocytopenia relatively new monitor CBC, if drops below 70 consider discontinuing AC HTN continue above diltiazem, metoprolol as well as lisinopril H/o CVA Continue statin, continue ASA given CVA history Disposition - Given her guarded prognosis, ongoing need for IV therapy, complex medical management, and pending diagnostic and disposition planning, inpatient care remains medically necessary at this time. This note is constructed using voice recognition software. While every effort has been made to ensure accuracy, automotive mechanic errors may have been included. Total time managing care of this patient today: 35 minutes. Quality Stroke Does the patient have a stroke diagnosis?: No VTE Prior VTE?: No VTE Risk Level:: Medical - moderate - high VTE Device Contraindication: N/A - Device Ordered VTE Drug Contraindication: N/A - Med Ordered
--- NOTE | 2025-01-24 15:19 | MHC.CM.PN ---
PER ROUNDS PT TO HAVE PT AND OT EVAL AND HOME 02 EVAL DC PLAN TBD
--- NOTE | 2025-01-24 15:22 | MHC.CM.PN ---
PER ROUNDS PT NEEDS A PT AND OT EVAL WHICH RECOMMENDS REHAB REFERRALS MADE TO STR
--- NOTE | 2025-01-24 16:09 | P.CNHO_ITS ---
Subjective - Subjective Chief complaint: Consult for: Metastatic breast cancer. Patient: known to practice within the last 3 years Consult date: 01/24/25 Requesting Physician: Diane Primary Care Provider: Hansel Gerber MD Family Provider: Hansel Gerber MD Medical Summary: DIAGNOSIS: METASTATIC BREAST CANCER. Athlete Manager Utilized?: No - Malay Speaking HPI - Consult Narrative Reason for consult: Consult for: Metastatic breast cancer. Narrative: Lora Herron is a 85 year old lady, admitted with SOB. CT of the chest revealed: No acute pulmonary artery emboli. Numerous osseous metastasis without pathologic fracture. Atelectasis versus airspace disease, left lower lung lobe. Coronary artery disease and atherosclerosis disease. Hiatal hernia, moderate to large volume. Calcified plaques in the mitral valve. Small pericardial effusion. CT OF THE HEAD REVEALED: No acute intracranial hemorrhage. Prior vascular insult, right MCA territory. Inflammatory versus infectious processes, left mastoid air cells and left tympanic cavity. Atherosclerosis disease, intracranial. She is being treated with updraft treatments and antibiotics. HISTORY OF PRESENT ILLNESS: Left breast cancer diagnosed in 2013. Ms. Herron underwent a routine screening mammogram in April 2013, which demonstrated a poorly defined mass in the left breast upper outer quadrant 11 cm from the nipple. This was read as suspicious and looking back, she did have an abnormal mammogram in March 2012, a 0.9 cm high density mass of focal asymmetry located in the same breast for which spot compression views were recommended. She underwent a core biopsy on May 12, 2013 at [facility], which demonstrated infiltrating carcinoma with ductal and lobular features, grade I, well-differentiated, ER positive, AR positive, HER2 negative. She underwent lumpectomy and sentinel lymph node biopsy in June 2013, which demonstrated infiltrating carcinoma with ductal and lobular features with tumor size of 1.3 x 1.2 x 1 cm, grade I, one sentinel lymph node negative for metastatic carcinoma. No tumor necrosis or lymphovascular invasion. ER 90% positive, AR 30% positive, HER2 negative, final stage pT1c pN0. Patient transferred her care to [facility], pathology review read as infiltrating carcinoma with mixed ductal and lobular features, grade II, ductal carcinoma in situ, intermediate grade cribriform type. ER positive, AR positive, HER2 negative. Patient was seen by both Radiation and Medical Oncology at [facility] and was recommended adjuvant radiation therapy, which she received radiotherapy in August 2013. She was recommended adjuvant hormonal therapy with aromatase inhibitor therapy. She took the medication for a few weeks or days and stopped it. She denied any significant side effects, but felt that at her age she did not think it would be of any benefit. Medical History:) Breast cancer, left Embolic stroke Heart murmur HTN (hypertension) Hypercholesterolemia Iron deficiency anemia Non-rheumatic aortic stenosis Pacemaker PAF (paroxysmal atrial fibrillation) Persistent atrial fibrillation Stroke Tachycardia. Surgical History:) History of lumpectomy of left breast Hx of colonoscopy Hx of foot surgery Hx of hysterectomy Hx of tonsillectomy Status post transcatheter aortic valve replacement. Family History:) Brother: Hodgkin lymphoma Father: Colon cancer ROS: Social History:) She worked in [employer]. She is not . She has no children. Living Situation History: Household Members: None Housing: House Tobacco History: Patient Tobacco Use Status: Former Tobacco user. She used to smoke a pack a day quit in 1985. e-Cigarette/Vaping Use: Never Used. She used to drink socially but not anymore. ROS: Social History:) She has been feeling rather fatigued lately. Denies fever chills or night sweats. Her apetite is down. She has lost weight. Denies headaches. Feels dizzy. Has had chest pain. Presented with SOB. She denies abdominal pain,nausea nor vomiting. No bowel complaints. Denies any dysuria, hematuria. She has had low back pain. Denies any focal weakness. Denies depression. No skin rashes no pruritus. Review of Systems - Constitutional Reports system reviewed and no additional complaints, except as documented, Reports fatigue, Reports lack of energy, Reports malaise, Reports poor appetite, Reports weight loss - Eyes Reports system reviewed and no additional complaints, except as documented - ENT Reports system reviewed and no additional complaints, except as documented - Cardiovascular Reports system reviewed and no additional complaints, except as documented - Respiratory Reports no additional respiratory complaints - Gastrointestinal Reports system reviewed and no additional complaints, except as documented - Genitourinary Reports no additional female genitourinary complaints - Musculoskeletal Reports system reviewed and no additional complaints, except as documented - Integumentary/Breasts Skin/Breast: Reports no additional skin complaints - Neurologic Reports as per HPI - Psychiatric Reports system reviewed and no additional complaints, except as documented - Endocrine Reports no additional endocrine complaints - Hematologic/Lymphatic Reports system reviewed and no additional complaints, except as documented - Allergic/Immunologic Reports system reviewed and no additional complaints, except as documented [facility] Medical History: Medical History (Last Reviewed 01/24/25 @ 11:22 by Karina Reyes) Breast cancer, left Embolic stroke Heart murmur HTN (hypertension) Hypercholesterolemia Iron deficiency anemia Non-rheumatic aortic stenosis Pacemaker PAF (paroxysmal atrial fibrillation) Persistent atrial fibrillation Stroke Tachycardia Functional capacity: uses cane/walker Patient : No Family History: Family History (Last Reviewed 01/21/25 @ 18:06 by Regina Deluna RN) Brother Hodgkin lymphoma Father Colon cancer Surgical History: Surgical History (Last Reviewed 01/24/25 @ 11:22 by Karina Reyes) History of lumpectomy of left breast Hx of colonoscopy Hx of foot surgery Hx of hysterectomy Hx of tonsillectomy Status post transcatheter aortic valve replacement Social History: Social History (Last Reviewed 01/21/25 @ 18:06 by Regina Deluna RN) Living Situation History: Household Members: None Housing: House Do you presently have visiting nurse or other home services: Yes Tobacco History: Patient Tobacco Use Status: Former Tobacco user e-Cigarette/Vaping Use: Never Used Second Hand Smoke Exposure: No Occupation Assessmet: service: No Current occupational status: retired Home Medications and Allergies Current Medications: Current Medications Acetaminophen (Acetaminophen 325 Mg Tablet) 650 mg PO Q6H PRN PRN Reason: Pain, Mild 1-3,fever,headache Albuterol/Ipratropium (Albuterol/Iprat 2.5/0.5mg 3 Ml Ampul.Neb) 3 ml INHALE RQ6H WHILE AWAKE PRN PRN Reason: Shortness of Breath Apixaban (Apixaban 2.5 Mg Tablet) 2.5 mg PO BID [facility] Last Admin: 01/24/25 08:04 Dose: 2.5 mg Atorvastatin Calcium (Atorvastatin Calcium 80 Mg Tablet) 80 mg PO BEDTIME [facility] Last Admin: 01/23/25 20:58 Dose: 80 mg Calcium Carbonate (Calcium Carbonate 750 Mg Tab.Chew) 750 mg PO Q4H PRN PRN Reason: Heartburn Digoxin (Digoxin 0.125 Mg Tablet) 0.125 mg PO DAILY [facility]; Protocol Last Admin: 01/24/25 08:04 Dose: 0.125 mg Diltiazem HCl (Diltiazem Hcl Cd 240 Mg Cap.Er.Deg) 240 mg PO BEDTIME [facility]EZ; Protocol Last Admin: 01/23/25 20:58 Dose: 240 mg Doxycycline Monohydrate (Doxycycline Monohydrate 100 Mg Capsule) 100 mg PO Q12H [facility] Last Admin: 01/24/25 10:42 Dose: 100 mg Furosemide (Furosemide 20 Mg/2 Ml Vial) 20 mg IVPUSH DAILY [facility]; Protocol On Hold: 01/22/25 09:11 Last Admin: 01/22/25 10:15 Dose: Not Given Ceftriaxone Sodium 1 gm/ (Sodium Chloride) 50 mls @ 100 mls/hr IV Q24H [facility] Last Infusion: 01/24/25 14:52 Dose: Infused Lisinopril (Lisinopril 2.5 Mg Tablet) 2.5 mg PO BEDTIME [facility]; Protocol Last Admin: 01/23/25 20:57 Dose: 2.5 mg Magnesium Hydroxide (Milk Of Magnesia 30 Ml Oral.Susp) 30 ml PO DAILY PRN PRN Reason: Constipation Melatonin (Melatonin 3 Mg Tablet) 6 mg PO BEDTIME PRN PRN Reason: Insomnia Metoprolol Succinate (Metoprolol Succinate Er 25 Mg Tab.Er.24h) 75 mg PO BEDTIME INEZ; Protocol Last Admin: 01/23/25 20:58 Dose: 75 mg Sodium Chloride (0.9 % Sodium Chloride Flush 3 Ml Syringe) 3 ml IVFLUSH QSHIFT [facility] Last Admin: 01/24/25 08:06 Dose: Not Given Home Medications ?Medication ?Instructions ?Recorded ?Confirmed ?Type coQ10 (ubiquinol) 200 mg capsule 200 mg PO DAILY 06/26/20 01/20/25 Histor y atorvastatin 80 mg tablet 80 mg PO BEDTIME 01/20/25 01/20/25 Histo ry digoxin 125 mcg (0.125 mg) tablet 125 mcg PO DAILY 01/20/25 01/20/25 Histo ry diltiazem HCl 240 mg 240 mg PO BEDTIME 01/20/25 01/20/25 Hist ory capsule,extended release 24 hr lisinopril 2.5 mg tablet 2.5 mg PO BEDTIME 01/20/25 01/20/25 Hist ory metoprolol succinate 25 mg 75 mg PO BEDTIME 01/20/25 01/20/25 Histo ry tablet,extended release 24 hr Allergies Allergy/AdvReac Type Severity Reaction Status Date / Time Seasonal Allergies Allergy Runny Nose Verified 01/20/25 07:01 Physical Exam Vital signs: Vital Signs Temp 97.3 F 01/24/25 15:41 Pulse 65 01/24/25 15:41 Resp 16 01/24/25 15:41 BP 124/85 01/24/25 15:41 Pulse Ox 92 01/24/25 15:41 O2 Del Method Nasal Cannula 01/24/25 15:41 O2 Flow Rate 3.0 01/24/25 15:41 Intake & Output 01/23/25 01/24/25 01/24/25 18:59 06:59 18:59 Intake Total 660 / 910 250 / 910 530 / 530 Balance 660 / 910 250 / 910 530 / 530 Intake: Intake, Oral Amount 360 / 610 250 / 610 480 / 480 Intake, IV Amount 300 / 300 50 / 50 Doxycycline Hyclate 100 mg In 0 250 / 250 .9 % Sodium Chloride 250 ml @ 166.67 mls/hr IV Q12H [facility] Rx#: [id number] cefTRIAXone sodium 1 gm In 0.9 50 / 50 50 / 50 % Sodium Chloride 50 ml @ 100 mls/hr IV Q24H [facility] Rx#: [id number] Other: Meal Refused No No NPO No No Lunch % Eaten 25% Eating (Feeding) Ability Independent Independent Set Up only Number of Unmeasured Voids 1 1 1 Number of Bowel Movements 0 Urine Bedside Commode Bedside Commode Bedside Commode Urine Color Yellow Yellow Last Bowel Movement 01/20/25 01/20/25 Weight 60.4 kg - Constitutional Present: mild distress - Routine HEENT Exam Head: Present: normal inspection, normocephalic Eye: Present: normal appearance ENT: Present: mucous membranes moist - Routine Neck Exam Present: supple Hem/Onc Consult Result - Labs CBC & Chem 7: 01/21/25 05:11 01/23/25 11:55 Assessment and Plan Patient Active problem list reviewed?: Yes (1) Breast cancer metastasized to bone Status: Acute Assessment and plan: This is an 85 year-old lady, with a H/O left breast infiltrating ductal carcinoma, stage pT1c N0 MX, grade 1 to 2, ER/AR positive, HER2 negative, 2013. She has undergone lumpectomy with sentinel node biopsy and completed adjuvant [facility]. She was recommended adjuvant hormonal therapy, possibly with aromatase inhibitor therapy, she took this for a few days and stopped it. She presented with left arm lymphedema and left cervical lymphadenopathy. CT neck and chest performed at [facility] on 12/20/2024 revealed: Infiltrative soft tissue density in the left subclavian region with surrounding the left subclavian artery and measures approximately 2.8 x 3.4 x 2.9 cm. 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 Innumerable small sclerotic foci throughout the spine, sacrum. Skin thickening inferiorly in the left breast which may reflect posttreatment change or malignancy. Patient was seen by medical oncologist Dr. Haney at [facility] who recommended that patient resume Arimidex since she had hormone receptor positive HER2 negative breast cancer in the past. Biopsy of the left supraclavicular mass was recommended however this had not been scheduled. Since patient did not tolerate anastrozole and she stopped taking it after 5 days, she was not willing to start any treatment unless the biopsy was done and diagnosis confirmed. An urgent ultrasound-guided biopsy of the mass was requested. It was actually scheduled for today. However unfortunately the patient was admitted to the hospital over the weekend. She was short of breath. Blood work 01/12 shows: Erythrocytosis, elevation in total bilirubin as well as transaminases. LDH is elevated at 911 and alkaline phosphatase of 491. CEA was 36.40, CA 27-29 767. Patient was encouraged to increase oral hydration and p.o. intake. She appeared dehydrated. Overall prognosis is deemed poor in view of her poor performance status and previous intolerance to oral hormonal therapy. PLAN: Unfortunately patient's biopsy had to be canceled since she got admitted. We will request the surgeon to see if it can be arranged. Further recommendations will be made after her biopsy. Meanwhile she will have a PT/OT consult. Then decide about her disposition. All her questions were answered to her satisfaction. Thank you, CC: Hansel Gerber, - Time Spent With Patient Time Spent with Patient (in minutes): 30
[2025-01-24] MEDS: Milk of Magnesia 30 ML ORAL.SUSP PO (16:21)
[2025-01-24] MEDS: dilTIAZem HCL CD 240 MG CAP.ER.DEG PO (19:56)
[2025-01-24] MEDS: Metoprolol Succinate ER 25 MG TAB.ER.24H 75 MG PO (19:57)
[2025-01-24] MEDS: 0.9 % Sodium Chloride Flush 3 ML SYRINGE IVFLUSH (19:58)
[2025-01-25] VITALS (10 sets, daily range): BP systolic 102–128; BP diastolic 50–60; PULSE 55–67; RESP 14–20; TEMP 36.1–36.8; O2SAT 92–97
--- NOTE | 2025-01-25 08:07 | PM.HEMONCPN ---
Medical Summary - Medical Summary Date of Service: 01/25/25 Chief complaint: F/U for metastatic breast cancer Primary Care Provider: Hansel Gerber MD Medical Summary: DIAGNOSIS: METASTATIC BREAST CANCER. Pitch Worker Utilized?: No - Yoruba Speaking Interval History Interval history: Lora Herron is a 85 year old lady, admitted with SOB. She has been feeling rather fatigued lately. Denies fever chills or night sweats. Denies headaches. Feels dizzy. Has had chest pain. Presented with SOB. She denies abdominal pain,nausea nor vomiting. No bowel complaints. Her apetite is down. She has lost weight. Denies any dysuria, hematuria. She has had low back pain. Denies any focal weakness. Denies depression. No skin rashes no pruritus. PRSENTING HISTORY: CT of the chest revealed: No acute pulmonary artery emboli. Numerous osseous metastasis without pathologic fracture. Atelectasis versus airspace disease, left lower lung lobe. Coronary artery disease and atherosclerosis disease. Hiatal hernia, moderate to large volume. Calcified plaques in the mitral valve. Small pericardial effusion. CT OF THE HEAD REVEALED: No acute intracranial hemorrhage. Prior vascular insult, right MCA territory. Inflammatory versus infectious processes, left mastoid air cells and left tympanic cavity. Atherosclerosis disease, intracranial. She is being treated with updraft treatments and antibiotics. HISTORY OF PRESENT ILLNESS: Left breast cancer diagnosed in 2013. Ms. Herron underwent a routine screening mammogram in April 2013, which demonstrated a poorly defined mass in the left breast upper outer quadrant 11 cm from the nipple. This was read as suspicious and looking back, she did have an abnormal mammogram in March 2012, a 0.9 cm high density mass of focal asymmetry located in the same breast for which spot compression views were recommended. She underwent a core biopsy on May 12, 2013 at [facility], which demonstrated infiltrating carcinoma with ductal and lobular features, grade I, well-differentiated, ER positive, MN positive, HER2 negative. She underwent lumpectomy and sentinel lymph node biopsy in June 2013, which demonstrated infiltrating carcinoma with ductal and lobular features with tumor size of 1.3 x 1.2 x 1 cm, grade I, one sentinel lymph node negative for metastatic carcinoma. No tumor necrosis or lymphovascular invasion. ER 90% positive, MN 30% positive, HER2 negative, final stage pT1c pN0. Patient transferred her care to [facility], pathology review read as infiltrating carcinoma with mixed ductal and lobular features, grade II, ductal carcinoma in situ, intermediate grade cribriform type. ER positive, MN positive, HER2 negative. Patient was seen by both Radiation and Medical Oncology at [facility] and was recommended adjuvant radiation therapy, which she received radiotherapy in August 2013. She was recommended adjuvant hormonal therapy with aromatase inhibitor therapy. She took the medication for a few weeks or days and stopped it. She denied any significant side effects, but felt that at her age she did not think it would be of any benefit. Medical History:) Breast cancer, left Embolic stroke Heart murmur HTN (hypertension) Hypercholesterolemia Iron deficiency anemia Non-rheumatic aortic stenosis Pacemaker PAF (paroxysmal atrial fibrillation) Persistent atrial fibrillation Stroke Tachycardia. Surgical History:) History of lumpectomy of left breast Hx of colonoscopy Hx of foot surgery Hx of hysterectomy Hx of tonsillectomy Status post transcatheter aortic valve replacement. Family History:) Brother: Hodgkin lymphoma Father: Colon cancer ROS: Social History:) She worked in [employer]. She is not . She has no children. Living Situation History: Household Members: None Housing: House Tobacco History: Patient Tobacco Use Status: Former Tobacco user. She used to smoke a pack a day quit in 1985. e-Cigarette/Vaping Use: Never Used. She used to drink socially but not anymore. Review of Systems - Constitutional Reports system reviewed and no additional complaints, except as documented, Reports lack of energy, Reports weight loss - Eyes Reports system reviewed and no additional complaints, except as documented - ENT Reports system reviewed and no additional complaints, except as documented - Cardiovascular Reports system reviewed and no additional complaints, except as documented - Respiratory Reports no additional respiratory complaints - Gastrointestinal Reports system reviewed and no additional complaints, except as documented - Genitourinary Reports no additional female genitourinary complaints - Musculoskeletal Reports system reviewed and no additional complaints, except as documented - Integumentary/Breasts Skin/Breast: Reports no additional skin complaints - Neurologic Reports as per HPI - Psychiatric Reports system reviewed and no additional complaints, except as documented - Endocrine Reports no additional endocrine complaints - Hematologic/Lymphatic Reports system reviewed and no additional complaints, except as documented - Allergic/Immunologic Reports system reviewed and no additional complaints, except as documented [facility] Medical History: Medical History (Last Reviewed 01/24/25 @ 11:22 by Karina Reyes) Breast cancer, left Embolic stroke Heart murmur HTN (hypertension) Hypercholesterolemia Iron deficiency anemia Non-rheumatic aortic stenosis Pacemaker PAF (paroxysmal atrial fibrillation) Persistent atrial fibrillation Stroke Tachycardia Functional capacity: uses cane/walker Patient : No Family History: Family History (Last Reviewed 01/21/25 @ 18:06 by Regina Deluna RN) Brother Hodgkin lymphoma Father Colon cancer Surgical History: Surgical History (Last Reviewed 01/24/25 @ 11:22 by Karina Reyes) History of lumpectomy of left breast Hx of colonoscopy Hx of foot surgery Hx of hysterectomy Hx of tonsillectomy Status post transcatheter aortic valve replacement Social History: Social History (Last Reviewed 01/21/25 @ 18:06 by Regina Deluna RN) Living Situation History: Household Members: None Housing: House Do you presently have visiting nurse or other home services: Yes Tobacco History: Patient Tobacco Use Status: Former Tobacco user e-Cigarette/Vaping Use: Never Used Second Hand Smoke Exposure: No Occupation Assessmet: service: No Current occupational status: retired Oncology Screenings - ECOG Performance Status ECOG Performance Status: 1 Home Medications and Allergies Current Medications: Current Medications Acetaminophen (Acetaminophen 325 Mg Tablet) 650 mg PO Q6H PRN PRN Reason: Pain, Mild 1-3,fever,headache Albuterol/Ipratropium (Albuterol/Iprat 2.5/0.5mg 3 Ml Ampul.Neb) 3 ml INHALE RQ6H WHILE AWAKE PRN PRN Reason: Shortness of Breath Amoxicillin/Clavulanate Potassium (Amoxicillin/Potassium Clav 875 Mg Tablet) 875 mg PO BID [facility] Last Admin: 01/24/25 19:56 Dose: 875 mg Apixaban (Apixaban 2.5 Mg Tablet) 2.5 mg PO BID [facility] Last Admin: 01/24/25 19:58 Dose: 2.5 mg Atorvastatin Calcium (Atorvastatin Calcium 80 Mg Tablet) 80 mg PO BEDTIME [facility] Last Admin: 01/24/25 19:57 Dose: 80 mg Bisacodyl (Bisacodyl 10 Mg Supp.Rect) 10 mg MN BEDTIME [facility] Last Admin: 01/24/25 20:24 Dose: Not Given Calcium Carbonate (Calcium Carbonate 750 Mg Tab.Chew) 750 mg PO Q4H PRN PRN Reason: Heartburn Digoxin (Digoxin 0.125 Mg Tablet) 0.125 mg PO DAILY [facility]; Protocol Last Admin: 01/24/25 08:04 Dose: 0.125 mg Diltiazem HCl (Diltiazem Hcl Cd 240 Mg Cap.Er.Deg) 240 mg PO BEDTIME [facility]; Protocol Last Admin: 01/24/25 19:56 Dose: 240 mg Docusate Sodium (Docusate Sodium 100 Mg Capsule) 100 mg PO BID [facility] Last Admin: 01/24/25 19:57 Dose: 100 mg Doxycycline Monohydrate (Doxycycline Monohydrate 100 Mg Capsule) 100 mg PO Q12H [facility] Last Admin: 01/24/25 22:11 Dose: 100 mg Furosemide (Furosemide 20 Mg Tablet) 20 mg PO BID@0900,1800 [facility]; Protocol Last Admin: 01/24/25 17:52 Dose: 20 mg Lisinopril (Lisinopril 2.5 Mg Tablet) 2.5 mg PO BEDTIME [facility]; Protocol Last Admin: 01/24/25 19:58 Dose: 2.5 mg Magnesium Hydroxide (Milk Of Magnesia 30 Ml Oral.Susp) 30 ml PO DAILY PRN PRN Reason: Constipation Last Admin: 01/24/25 16:21 Dose: 30 ml Melatonin (Melatonin 3 Mg Tablet) 6 mg PO BEDTIME PRN PRN Reason: Insomnia Metoprolol Succinate (Metoprolol Succinate Er 25 Mg Tab.Er.24h) 75 mg PO BEDTIME [facility]; Protocol Last Admin: 01/24/25 19:57 Dose: 75 mg Polyethylene Glycol (Polyethylene Glycol 3350 17 Gm Powd.Pack) 17 gm PO DAILY [facility] Last Admin: 01/24/25 21:22 Dose: 17 gm Sodium Chloride (0.9 % Sodium Chloride Flush 3 Ml Syringe) 3 ml IVFLUSH QSHIFT [facility] Last Admin: 01/24/25 19:58 Dose: 3 ml Home Medications ?Medication ?Instructions ?Recorded ?Confirmed ?Type coQ10 (ubiquinol) 200 mg capsule 200 mg PO DAILY 06/26/20 01/20/25 History atorvastatin 80 mg tablet 80 mg PO BEDTIME 01/20/25 01/20/25 History digoxin 125 mcg (0.125 mg) tablet 125 mcg PO DAILY 01/20/25 01/20/25 History diltiazem HCl 240 mg 240 mg PO BEDTIME 01/20/25 01/20/25 History capsule,extended release 24 hr lisinopril 2.5 mg tablet 2.5 mg PO BEDTIME 01/20/25 01/20/25 History metoprolol succinate 25 mg 75 mg PO BEDTIME 01/20/25 01/20/25 History tablet,extended release 24 hr Allergies Allergy/AdvReac Type Severity Reaction Status Date / Time Seasonal Allergies Allergy Runny Nose Verified 01/20/25 07:01 Exam Vital signs: Vital Signs Temp 98.2 F 01/25/25 07:41 Pulse 64 01/25/25 07:41 Resp 18 01/25/25 07:41 BP 121/54 L 01/25/25 07:41 Pulse Ox 92 01/25/25 07:41 O2 Del Method Nasal Cannula 01/25/25 07:41 O2 Flow Rate 3 01/25/25 07:41 Intake & Output 01/24/25 01/25/25 01/25/25 18:59 06:59 18:59 Intake Total 770 / 1130 360 / 1130 Balance 770 / 1130 360 / 1130 Intake: Intake, Oral Amount 720 / 1080 360 / 1080 Intake, IV Amount 50 / 50 cefTRIAXone sodium 1 gm In 0.9 50 / 50 % Sodium Chloride 50 ml @ 100 mls/hr IV Q24H [facility] Rx#: [id number] Other: Meal Refused No NPO No Lunch % Eaten 25% Dinner % Eaten <25 Eating (Feeding) Ability Independent Number of Unmeasured Voids 1 2 Urine Bedside Commode Bedside Commode Urine Color Yellow Yellow Weight 60.4 kg BMI result Body Mass Index 21.5 - Constitutional Present: mild distress - Routine HEENT Exam Head: Present: normal inspection, normocephalic Eye: Present: normal appearance ENT: Present: mucous membranes moist - Routine Neck Exam Present: full ROM - Routine Respiratory Exam Present: CTAB - Routine Cardiovascular Exam Cardiovascular: Present: RRR, S1, S2 - Routine Abdominal Exam Present: soft, nontender - Routine Rectal Exam Patient deferred: digital exam - Routine Extremities Exam Present: nontender - Routine Back/Spine/Pelvis Exam Back/Spine: Present: full ROM - Routine Skin Exam Present: intact - Routine Neurological Exam Present: alert, oriented X3 - Routine Psychiatric Exam Present: normal affect Data - Labs CBC & Chem 7: 01/21/25 05:11 01/23/25 11:55 Labs: Laboratory Last Values WBC 9.1 X10*3/uL (4.8-10.8) 01/21/25 05:11 RBC 4.08 X10*6/uL (4.20-5.50) L 01/21/25 05:11 Hgb 12.5 g/dl (12.0-16.0) 01/21/25 05:11 Hct 39.4 % (37.0-47.0) 01/21/25 05:11 MCV 96.6 fL (80.0-98.0) 01/21/25 05:11 MCH 30.6 pg (27.0-33.0) 01/21/25 05:11 MCHC 31.7 g/dl (31.0-35.0) 01/21/25 05:11 RDW 15.3 % (11.0-16.0) 01/21/25 05:11 Plt Count 110 X10*3/uL (160-400) L 01/21/25 05:11 MPV 10.3 fL (9.4-12.3) 01/21/25 05:11 Immature Gran % (Auto) 2.0 % (0.0-0.4) H 01/20/25 07:34 Neut % (Auto) 54.9 % (45-73) 01/20/25 07:34 Lymph % (Auto) 31.5 % (20-40) 01/20/25 07:34 Reeves % (Auto) 9.9 % (2-11) 01/20/25 07:34 Eos % (Auto) 1.1 % (0-4) 01/20/25 07:34 Baso % (Auto) 0.6 % (0-2) 01/20/25 07:34 Lymph # (Auto) 2.7 X10*3/uL (1.2-4.9) 01/20/25 07:34 Reeves # (Auto) 0.8 X10*3/uL (0.1-1.2) 01/20/25 07:34 Eos # (Auto) 0.1 X10*3/uL (0.0-0.4) 01/20/25 07:34 Baso # (Auto) 0.1 X10*3/uL (0.0-0.2) 01/20/25 07:34 Abs Immat Gran (auto) 0.17 X10*3/uL (0.00-0.03) H 01/20/25 07:34 Absolute Neuts (auto) 4.6 x10*3/uL (2.0-8.3) 01/20/25 07:34 Absolute Nucleated RBC 0.070 X10*3/uL (0.0-0.012) H 01/21/25 05:11 Nucleated RBC % (auto) 0.8 /100WBC (0.0-0.2) H 01/21/25 05:11 VBG pH 7.39 (7.32-7.43) 01/20/25 07:40 VBG pCO2 37 mmHg 01/20/25 07:40 VBG pO2 44 mmHg 01/20/25 07:40 VBG HCO3 23 mmol/L (22-26) 01/20/25 07:40 VBG O2 Saturation 60.0 % 01/20/25 07:40 VBG Base Excess -1.3 mmol/L 01/20/25 07:40 Sodium 140 mmol/L (135-145) 01/23/25 11:55 Potassium 3.9 mmol/L (3.3-5.1) 01/23/25 11:55 Chloride 110 mmol/L (96-108) H 01/23/25 11:55 Carbon Dioxide 21 mmol/L (22-29) L 01/23/25 11:55 Anion Gap 13 (12-20) 01/23/25 11:55 BUN 19 mg/dL (9-16) H 01/23/25 11:55 Creatinine 1.03 mg/dL (0.5-1.4) 01/23/25 11:55 Estim Creat Clear Calc 36.0 01/23/25 11:55 Estimated GFR 51 01/23/25 11:55 Random Glucose 227 mg/dL (60-115) H 01/23/25 11:55 Calcium 8.1 mg/dL (8.4-10.2) L 01/23/25 11:55 Magnesium 2.1 mg/dL (1.6-2.6) 01/22/25 10:37 Total Bilirubin 1.3 mg/dL (0.0-1.0) H 01/20/25 07:34 AST 209 U/L (5-31) H 01/20/25 07:34 ALT 38 U/L (0-31) H 01/20/25 07:34 Alkaline Phosphatase 513 U/L (39-117) H 01/20/25 07:34 Troponin I High Sens 19.5 ng/L (<3.5-17.0) H 01/20/25 10:44 NT-Pro-B Natriuret Pep 752.5 pg/mL (<300) H 01/20/25 07:34 Total Protein 6.6 g/dL (6.5-8.0) 01/20/25 07:34 Albumin 3.3 g/dL (3.5-5.0) L 01/20/25 07:34 Procalcitonin 0.20 ng/mL 01/20/25 07:34 Respiratory Panel Peters See Note 01/20/25 18:12 Adenovirus (Rapid PCR) Not Detected (Not Detect.) 01/20/25 18:12 B.pert (TEM-PCR) Not Detected (Not Detect.) 01/20/25 18:12 B.parapertussis DNA PCR Not Detected (Not Detect.) 01/20/25 18:12 C. pneumoniae DNA (PCR) Not Detected (Not Detect.) 01/20/25 18:12 Coronavirus OC43 (PCR) Not Detected (Not Detect.) 01/20/25 18:12 Coronavirus HKU1 (PCR) Not Detected (Not Detect.) 01/20/25 18:12 Coronavirus 229E (PCR) Not Detected (Not Detect.) 01/20/25 18:12 COVID-19 (CHIP) Negative (Negative) 01/20/25 07:24 COVID-19 Clin Com See Note 01/20/25 07:24 Coronavirus NL63 (PCR) Not Detected (Not Detect.) 01/20/25 18:12 Human Metapneumovir PCR Not Detected (Not Detect.) 01/20/25 18:12 Influenza Type A (JACKSON) Negative (Negative) 01/20/25 07:24 Influenza A (RT-PCR) Not Detected (Not Detect.) 01/20/25 18:12 Influenza A (H1) PCR Not Detected (Not Detect.) 01/20/25 18:12 Influ A (H1/09) PCR Not Detected (Not Detect.) 01/20/25 18:12 Influenza A (H3) PCR Not Detected (Not Detect.) 01/20/25 18:12 Influenza Type B (JACKSON) Negative (Negative) 01/20/25 07:24 Influenza B (RT-PCR) Not Detected (Not Detect.) 01/20/25 18:12 Influenza A & B Note See Note 01/20/25 07:24 M. pneumoniae (PCR) Not Detected (Not Detect.) 01/20/25 18:12 Parainfluenza 1 (PCR) Not Detected (Not Detect.) 01/20/25 18:12 Parainfluenza 2 (PCR) Not Detected (Not Detect.) 01/20/25 18:12 Parainfluenza 3 (PCR) Not Detected (Not Detect.) 01/20/25 18:12 Parainfluenza 4 (PCR) Not Detected (Not Detect.) 01/20/25 18:12 RSV (PCR) Not Detected (Not Detect.) 01/20/25 18:12 Entero/Rhino (PCR) Not Detected (Not Detect.) 01/20/25 18:12 SARS-CoV-2 RNA (RT-PCR) Not Detected (Not Detect.) 01/20/25 18:12 - Imaging Radiologist's impression: ITS Impressions Chest X-Ray 01/20/25 07:47 IMPRESSION: Cardiomegaly. The lungs are clear. Electronically signed by: Marvin Salinas MD 01/20/2025 08:02 AM EDT RP Head CT 01/20/25 09:56 IMPRESSION: No acute intracranial hemorrhage. Prior vascular insult, right MCA territory. Inflammatory versus infectious processes, left mastoid air cells and left tympanic cavity. Atherosclerosis disease, intracranial. Electronically signed by: Eugene Martin MD 01/20/2025 10:50 AM EDT RP Chest CTA 01/20/25 11:21 IMPRESSION: No acute pulmonary artery emboli. Numerous osseous metastasis without pathologic fracture. Atelectasis versus airspace disease, left lower lung lobe. Coronary artery disease and atherosclerosis disease. Hiatal hernia, moderate to large volume. Calcified plaques in the mitral valve. Small pericardial effusion. Fleischner guidelines were followed. Electronically signed by: Eugene Martin MD 01/20/2025 11:51 AM EDT RP Assessment and Plan Patient Active problem list reviewed?: Yes (1) Breast cancer metastasized to bone Status: Acute Assessment and plan: This is an 85 year-old lady, with a H/O left breast infiltrating ductal carcinoma, stage pT1c N0 MX, grade 1 to 2, ER/MN positive, HER2 negative, 2013. She has undergone lumpectomy with sentinel node biopsy and completed adjuvant [facility]. She was recommended adjuvant hormonal therapy, possibly with aromatase inhibitor therapy, she took this for a few days and stopped it. She presented with left arm lymphedema and left cervical lymphadenopathy. CT neck and chest performed at [facility] on 12/20/2024 revealed: Infiltrative soft tissue density in the left subclavian region with surrounding the left subclavian artery and measures approximately 2.8 x 3.4 x 2.9 cm. 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 Innumerable small sclerotic foci throughout the spine, sacrum. Skin thickening inferiorly in the left breast which may reflect posttreatment change or malignancy. Patient was seen by medical oncologist Dr. Haney at [facility] who recommended that patient resume Arimidex since she had hormone receptor positive HER2 negative breast cancer in the past. Biopsy of the left supraclavicular mass was recommended however this had not been scheduled. Since patient did not tolerate anastrozole and she stopped taking it after 5 days, she was not willing to start any treatment unless the biopsy was done and diagnosis confirmed. An urgent ultrasound-guided biopsy of the mass was requested. It was actually scheduled for Friday. However unfortunately the patient was admitted to the hospital over the weekend. She was short of breath. Blood work 01/12 shows: Erythrocytosis, elevation in total bilirubin as well as transaminases. LDH is elevated at 911 and alkaline phosphatase of 491. CEA was 36.40, CA 27-29 767. Overall prognosis is deemed guarded, in view of her poor performance status and previous intolerance to oral hormonal therapy. This is likely to be recurrent breast cancer. However this was long time ago, so another primary is also a possibility, ie a lymphoma. Patient were like to have the biopsy done while she is in-house. She lives by herself and has transportation issues. PLAN: Will proceed with the cervical lymph node biopsy, in the interest of time. I have requested Dr. Fleming to assist in that regard. Would like to send core biopsy and sample for flow cytometry and cytogenetics. Further recommendations will be made after her biopsy. Meanwhile she will have a PT/OT consult. Then decide about her disposition. All her questions were answered to her satisfaction. Thank you, CC: Hansel Gerber. - Time Spent With Patient Time Spent with Patient (in minutes): 25
[2025-01-25] MEDS: 0.9 % Sodium Chloride Flush 3 ML SYRINGE IVFLUSH (08:18)
--- NOTE | 2025-01-25 09:23 | PM.CNGS ---
History of Present Illness Consult details Consult date: 01/25/25 <Aguila Chung PA-C - Last Filed: 01/25/25 12:41> Reason for consult: other (Lymph node biopsy) <Aguila Chung PA-C - Last Filed: 01/25/25 12:41> Requesting physician: Audrey Fuentes <Aguila Chung PA-C - Last Filed: 01/25/25 12:41> Narrative: 85-year-old female with a history of CHF, HTN, AFib (on Eliquis), s/p TAVR, stroke, pacemaker, metastatic left breast infiltrating ductal carcinoma, status post lumpectomy with sentinel node biopsy who has completed adjuvant radiation therapy seen in consult for left subclavian lymph node biopsy. Patient had a CT of the neck and chest performed at [facility] on 12/20 showing a soft tissue density in the subclavian region that is about 2.8 x 3.4 x 2.9 cm, surrounding the left subclavian artery. This was recommended to have biopsy as outpatient, was scheduled for Friday however patient was admitted to the hospital over the weekend for shortness of breath. Dr. Fuentes requested consult for General surgery to do this biopsy while inpatient so the patient can hopefully initiate treatment if necessary. The patient has no complaints. <Aguila Chung PA-C - Last Filed: 01/25/25 12:41> [facility] Past Medical History Medical History: Medical History Persistent atrial fibrillation Embolic stroke PAF (paroxysmal atrial fibrillation) Non-rheumatic aortic stenosis Pacemaker Stroke Tachycardia Iron deficiency anemia Breast cancer, left Heart murmur Hypercholesterolemia HTN (hypertension) <Aguila Chung PA-C - Last Filed: 01/25/25 12:41> Family History Family History: Family History Brother Hodgkin lymphoma Father Colon cancer <JADYN Kenyon Last Filed: 01/25/25 12:41> Surgical History Surgical History: Surgical History Status post transcatheter aortic valve replacement Hx of colonoscopy Hx of tonsillectomy Hx of hysterectomy History of lumpectomy of left breast Hx of foot surgery <Aguila Chung PA-C - Last Filed: 01/25/25 12:41> Social History Social History: Social History Household Members: None Housing: House Do you presently have visiting nurse or other home services: Yes Alcohol intake: current Alcohol intake frequency: holidays/special occasions only Alcohol type: other Patient Tobacco Use Status: Former Tobacco user Smoked in Last 30 Days: No e-Cigarette/Vaping Use: Never Used Patient Interested in Nicotine Replacement: No Patient Given Instructions on How to Stop Smoking: No Second Hand Smoke Exposure: No Currently Displaying Signs/Symptoms of Drug Intoxication Withdrawal: No Have you been hit, kicked, punched, or otherwise hurt by someone within the past year? If so, by whom?: No Do you feel safe in your current relationship?: No Is there a partner from a previous relationship who is making you feel unsafe now?: No Are you made to feel afraid or neglected: No Advance Directives: No Advance Directives Information Provided: No Do you have a plan to hurt others: No Plan Recently lost weight without trying: No Nutrition Risks: No Nutritional Risk Patient : No : No Poor oral hygiene: No service: No Current occupational status: retired Cognitive needs: No Hearing needs: No Vision needs: No <Aguila Chung PA-C - Last Filed: 01/25/25 12:41> Meds Allergies/Adverse reactions: Allergies Allergy/AdvReac Type Severity Reaction Status Date / Time Seasonal Allergies Allergy Runny Nose Verified 01/20/25 07:01 <Aguila Chung PA-C - Last Filed: 01/25/25 12:41> Active Medications: Current Medications Acetaminophen (Acetaminophen 325 Mg Tablet) 650 mg PO Q6H PRN PRN Reason: Pain, Mild 1-3,fever,headache Albuterol/Ipratropium (Albuterol/Iprat 2.5/0.5mg 3 Ml Ampul.Neb) 3 ml INHALE RQ6H WHILE AWAKE PRN PRN Reason: Shortness of Breath Amoxicillin/Clavulanate Potassium (Amoxicillin/Potassium Clav 875 Mg Tablet) 875 mg PO BID [facility] Last Admin: 01/25/25 08:18 Dose: 875 mg Apixaban (Apixaban 2.5 Mg Tablet) 2.5 mg PO BID [facility] Last Admin: 01/25/25 08:18 Dose: 2.5 mg Atorvastatin Calcium (Atorvastatin Calcium 80 Mg Tablet) 80 mg PO BEDTIME [facility] Last Admin: 01/24/25 19:57 Dose: 80 mg Bisacodyl (Bisacodyl 10 Mg Supp.Rect) 10 mg CA BEDTIME [facility] Last Admin: 01/24/25 20:24 Dose: Not Given Calcium Carbonate (Calcium Carbonate 750 Mg Tab.Chew) 750 mg PO Q4H PRN PRN Reason: Heartburn Diazepam (Diazepam 10 Mg/2 Ml Cartridge) 2.5 mg IVPUSH Q8H PRN PRN Reason: Nausea Digoxin (Digoxin 0.125 Mg Tablet) 0.125 mg PO DAILY [facility]; Protocol Last Admin: 01/25/25 08:18 Dose: 0.125 mg Diltiazem HCl (Diltiazem Hcl Cd 240 Mg Cap.Er.Deg) 240 mg PO BEDTIME [facility]; Protocol Last Admin: 01/24/25 19:56 Dose: 240 mg Docusate Sodium (Docusate Sodium 100 Mg Capsule) 100 mg PO BID [facility] Last Admin: 01/25/25 08:18 Dose: 100 mg Doxycycline Monohydrate (Doxycycline Monohydrate 100 Mg Capsule) 100 mg PO Q12H [facility] Last Admin: 01/24/25 22:11 Dose: 100 mg Furosemide (Furosemide 20 Mg Tablet) 20 mg PO BID@0900,1800 [facility]; Protocol Last Admin: 01/25/25 08:18 Dose: 20 mg Lisinopril (Lisinopril 2.5 Mg Tablet) 2.5 mg PO BEDTIME [facility]; Protocol Last Admin: 01/24/25 19:58 Dose: 2.5 mg Magnesium Hydroxide (Milk Of Magnesia 30 Ml Oral.Susp) 30 ml PO DAILY PRN PRN Reason: Constipation Last Admin: 01/24/25 16:21 Dose: 30 ml Melatonin (Melatonin 3 Mg Tablet) 6 mg PO BEDTIME PRN PRN Reason: Insomnia Metoprolol Succinate (Metoprolol Succinate Er 25 Mg Tab.Er.24h) 75 mg PO BEDTIME [facility]; Protocol Last Admin: 01/24/25 19:57 Dose: 75 mg Polyethylene Glycol (Polyethylene Glycol 3350 17 Gm Powd.Pack) 17 gm PO DAILY [facility] Last Admin: 01/25/25 08:18 Dose: 17 gm Sodium Chloride (0.9 % Sodium Chloride Flush 3 Ml Syringe) 3 ml IVFLUSH QSHIFT [facility] Last Admin: 01/25/25 08:18 Dose: 3 ml <JADYN Kenyon Last Filed: 01/25/25 12:41> Home medications: Home Medications ?Medication ?Instructions ?Recorded ?Confirmed ?Last Taken ?Type coQ10 (ubiquinol) 200 mg capsule 200 mg PO DAILY 06/26/20 01/20/25 01/19/25 History atorvastatin 80 mg tablet 80 mg PO BEDTIME 01/20/25 01/20/25 01/19/25 History digoxin 125 mcg (0.125 mg) tablet 125 mcg PO DAILY 01/20/25 01/20/25 01/20/25 History diltiazem HCl 240 mg 240 mg PO BEDTIME 01/20/25 01/20/25 01/19/25 History capsule,extended release 24 hr lisinopril 2.5 mg tablet 2.5 mg PO BEDTIME 01/20/25 01/20/25 01/19/25 History metoprolol succinate 25 mg 75 mg PO BEDTIME 01/20/25 01/20/25 01/19/25 History tablet,extended release 24 hr <JADYN Kenyon Last Filed: 01/25/25 12:41> Physical Exam Vital Signs: Vital Signs: Last Vital Signs Temp 98.2 F 01/25/25 07:41 Pulse 64 01/25/25 07:41 Resp 18 01/25/25 07:41 BP 121/54 L 01/25/25 07:41 Pulse Ox 92 01/25/25 07:41 O2 Del Method Nasal Cannula 01/25/25 07:41 O2 Flow Rate 3 01/25/25 07:41 BMI result Body Mass Index 21.5 <JADYN Kenyon Last Filed: 01/25/25 12:41> Const: General: comfortable and no acute distress <JADYN Kenyon Last Filed: 01/25/25 12:41> Orientation/consciousness: patient oriented x3 <JADYN Kenyon Last Filed: 01/25/25 12:41> Neck: Other: Firm enlarged lymph node in the anterior cervical chain nontender <JADYN Kenyon Last Filed: 01/25/25 12:41> Neck: Yes normal visual inspection, Yes trachea midline and Yes supple <Aguila Chung PA-C - Last Filed: 01/25/25 12:41> Neuro: General: patient oriented x3 <Aguila Chung PA-C - Last Filed: 01/25/25 12:41> Results Labs Result diagrams: 01/21/25 05:11 01/23/25 11:55 <Aguila Chung PA-C - Last Filed: 01/25/25 12:41> Labs: All other labs normal. <JADYN Kenyon Last Filed: 01/25/25 12:41> Assessment and Plan (1) Lymphadenopathy of left cervical region: Status: Acute <Aguila Chung PA-C - Last Filed: 01/25/25 12:41> He had 5 year female with multiple medical problems including CHF, metastatic breast cancer, pacemaker in place, anticoagulation, sleep apnea, history of CVA and atrial fibrillation, with a large, hard lymph node on the left neck. I have been consulted for fine-needle biopsy Would hold anticoagulation today and tomorrow Plan to do FNA at bedside tomorrow Seen and examined independently <Lowell Fleming MD - Last Filed: 01/25/25 14:29> 85-year-old female with a history of CHF, HTN, AFib (on Eliquis), s/p TAVR, stroke, pacemaker, metastatic left breast infiltrating ductal carcinoma, status post lumpectomy with sentinel node biopsy who has completed adjuvant radiation therapy seen in consult for left subclavian lymph node biopsy. Patient had a CT of the neck and chest performed at [facility] on 12/20 showing a soft tissue density in the subclavian region that is about 2.8 x 3.4 x 2.9 cm, surrounding the left subclavian artery. Dr. Fuentes requesting consult for biopsy of neck lymph node as patient was supposed to have this as an outpatient but was unfortunately admitted to the hospital over the weekend and missed her Friday appointment. On exam there was a palpable lymph node in the anterior cervical chain we will plan for fine-needle biopsy tomorrow at bedside. Patient is on anticoagulation for persistent AFib, AVR, we will need to hold this today for procedure tomorrow. Hold anticoagulation Fine-needle biopsy tomorrow <Aguila Chung PA-C - Last Filed: 01/25/25 12:41> Procedures Date of Service Date of Service: 01/25/25 <Aguila Chung PA-C - Last Filed: 01/25/25 12:41> 01/25/25 <Lowell Fleming MD - Last Filed: 01/25/25 14:29>
--- NOTE | 2025-01-25 13:47 | MHC.CM.PN ---
CM MET WITH PT AT BEDSIDE REGARDING REHAB CHOICES. PT'S FIRST CHOICE IS [facility] WHO IS OFFERING A BED. CM WILL CONTINUE TO FOLLOW FOR ANY CHANGE TO DC PLAN.
--- NOTE | 2025-01-25 14:55 | P.PNIM_ITS ---
Subjective Subjective Date of Service: 01/25/25 Interval History: Patient clinically improving Antibiotics switched to p.o. Lymph node biopsy tomorrow We will hold anticoagulation Per surgery does not need to be NPO for lymph node biopsy Review of Systems Review of Systems: Yes all other systems are reviewed and are negative Physical Exam 2 Vital Signs: Vital Signs: Last Vital Signs Temp 96.9 F 01/25/25 12:31 Pulse 62 01/25/25 14:45 Resp 20 01/25/25 12:31 BP 111/56 L 01/25/25 14:45 Pulse Ox 97 01/25/25 14:45 O2 Del Method Nasal Cannula 01/25/25 14:45 O2 Flow Rate 2 01/25/25 14:45 BMI result Body Mass Index 21.5 Const: General: comfortable and no acute distress O rientation/consciousness: patient oriented x3 Neck: Other: Firm enlarged lymph node in the anterior cervical chain nontender Neck: Yes normal visual inspection, Yes trachea midline and Yes supple Neuro: General: patient oriented x3 Objective Data Active Medications Acetaminophen (Acetaminophen 325 Mg Tablet) 650 mg PO Q6H PRN PRN Reason: Pain, Mild 1-3,fever,headache Albuterol/Ipratropium (Albuterol/Iprat 2.5/0.5mg 3 Ml Ampul.Neb) 3 ml INHALE RQ6H WHILE AWAKE PRN PRN Reason: Shortness of Breath Amoxicillin/Clavulanate Potassium (Amoxicillin/Potassium Clav 875 Mg Tablet) 875 mg PO BID [facility] Last Admin: 01/25/25 08:18 Dose: 875 mg Documented By: JYOTI Apixaban (Apixaban 2.5 Mg Tablet) 2.5 mg PO BID [facility] On Hold: 01/25/25 10:01 Resume: 01/26/25 21:00 Last Admin: 01/25/25 08:18 Dose: 2.5 mg Documented By: JYOTI Atorvastatin Calcium (Atorvastatin Calcium 80 Mg Tablet) 80 mg PO BEDTIME [facility] Last Admin: 01/24/25 19:57 Dose: 80 mg Documented By: FRANK Bisacodyl (Bisacodyl 10 Mg Supp.Rect) 10 mg VT BEDTIME [facility] Last Admin: 01/24/25 20:24 Dose: Not Given Documented By: FRANK Non-Admin Reason: Patient Refused Calcium Carbonate (Calcium Carbonate 750 Mg Tab.Chew) 750 mg PO Q4H PRN PRN Reason: Heartburn Diazepam (Diazepam 10 Mg/2 Ml Cartridge) 2.5 mg IVPUSH Q8H PRN PRN Reason: Nausea Digoxin (Digoxin 0.125 Mg Tablet) 0.125 mg PO DAILY [facility]; Protocol Last Admin: 01/25/25 08:18 Dose: 0.125 mg Documented By: JYOTI Diltiazem HCl (Diltiazem Hcl Cd 240 Mg Cap.Er.Deg) 240 mg PO BEDTIME [facility]; Protocol Last Admin: 01/24/25 19:56 Dose: 240 mg Documented By: FRANK Docusate Sodium (Docusate Sodium 100 Mg Capsule) 100 mg PO BID [facility] Last Admin: 01/25/25 08:18 Dose: 100 mg Documented By: JYOTI Doxycycline Monohydrate (Doxycycline Monohydrate 100 Mg Capsule) 100 mg PO Q12H [facility] Last Admin: 01/25/25 10:28 Dose: 100 mg Documented By: JYOTI Furosemide (Furosemide 20 Mg Tablet) 20 mg PO BID@0900,1800 [facility]; Protocol Last Admin: 01/25/25 08:18 Dose: 20 mg Documented By: JYOTI Lisinopril (Lisinopril 2.5 Mg Tablet) 2.5 mg PO BEDTIME [facility]; Protocol Last Admin: 01/24/25 19:58 Dose: 2.5 mg Documented By: FRANK Magnesium Hydroxide (Milk Of Magnesia 30 Ml Oral.Susp) 30 ml PO DAILY PRN PRN Reason: Constipation Last Admin: 01/24/25 16:21 Dose: 30 ml Documented By: JYOTI Melatonin (Melatonin 3 Mg Tablet) 6 mg PO BEDTIME PRN PRN Reason: Insomnia Metoprolol Succinate (Metoprolol Succinate Er 25 Mg Tab.Er.24h) 75 mg PO BEDTIME [facility]; Protocol Last Admin: 01/24/25 19:57 Dose: 75 mg Documented By: FRANK Polyethylene Glycol (Polyethylene Glycol 3350 17 Gm Powd.Pack) 17 gm PO DAILY [facility] Last Admin: 01/25/25 08:18 Dose: 17 gm Documented By: JYOTI Sodium Chloride (0.9 % Sodium Chloride Flush 3 Ml Syringe) 3 ml IVFLUSH QSHIFT [facility] Last Admin: 01/25/25 08:18 Dose: 3 ml Documented By: JYOTI Labs 01/21/25 05:11 01/23/25 11:55 Assessment and Plan (1) Acute exacerbation of CHF (congestive heart failure): Status: Acute (2) Persistent atrial fibrillation: Status: Acute (3) Breast cancer: Status: Chronic (4) Embolic stroke: Status: Acute (5) Pneumonia: Status: Acute (6) Acute hypoxemic respiratory failure: Status: Acute Plan Patient is a 85-year-old female with a h/o bioprosthetic aortic valve, ppm, paroxysmal AFib on Eliquis, h/o stroke, h/o left breast cancer IDC s/p lumpectomy and radiation therapy in 2013, hiatal hernia who presented to the ED with SOB/COLLIER, likely in the setting of pneumonia versus worsening of known breast cancer. Guarded prognosis. AHRF 2/2 pneumonia versus breast cancer resurgence in a patient with poor performance status and intolerance to hormonal therapy with poor prognostication For pneumonia she is being treated with IV antibiotics-switched to p.o. with good effect Heme-Onc consulted for breast cancer workup as her left pneumonia could also be in the setting of exudative effusion - given her frailty and guarded prognosis, patient would benefit with inpatient lymph node biopsy We will check home O2 eval PTOT SDR versus home with VNA based on PT recommendations History of CAD-statin, aspirin Paroxysmal atrial fibrillation -continue Eliquis, diltiazem, metoprolol, we will check daily labs and monitor on telemetry Bioprosthetic aortic valve-continue Eliquis PPM-monitored on telemetry and electrolytes being checked and repleted to goal Acute CHF exacerbation switch to Lasix po bid Metastatic breast cancer CT neck and chest performed at [facility] on 12/20/2024 revealed infiltrative soft tissue density in the left subclavian region with surrounding the left subclavian artery and measures approximately 2.8 x 3.4 x 2.9 cm. 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 Innumerable small sclerotic foci throughout the spine, sacrum. Skin thickening inferiorly in the left breast which may reflect posttreatment change or malignancy outpatient bx of the left supraclavicular mass was scheduled for today and will need to be rescheduled As per outpatient oncology note-overall prognosis is poor given her poor performance status as well as intolerance to oral hormonal therapy (Anastrozole was recently resumed but pt did not tolerate) Appreciate oncology input as this would likely help us with discharge planning Elevated LFTs likely due to above probable mets to liver Thrombocytopenia- likely stress related, hospitalization. We will continue to monitor HTN continue home meds lisinopril metoprolol and diltiazem Disposition - Given her guarded prognosis, ongoing need for IV therapy, complex medical management, and pending diagnostic and disposition planning, inpatient care remains medically necessary at this time, patient to undergo lymph node biopsy tomorrow. She will likely be discharged in 1-2 days post biopsy. This note is constructed using voice recognition software. While every effort has been made to ensure accuracy, coal miner errors may have been included. Total time managing care of this patient today: 35 minutes. Quality Stroke Does the patient have a stroke diagnosis?: No VTE Prior VTE?: No VTE Risk Level:: Medical - moderate - high VTE Device Contraindication: N/A - Device Ordered VTE Drug Contraindication: N/A - Med Ordered
[2025-01-25] MEDS: Metoprolol Succinate ER 25 MG TAB.ER.24H 75 MG PO (20:49)
[2025-01-25] MEDS: dilTIAZem HCL CD 240 MG CAP.ER.DEG PO (20:50)
[2025-01-26] MEDS: 0.9 % Sodium Chloride Flush 3 ML SYRINGE IVFLUSH ×2 (00:42→15:48)
[2025-01-26 03:34] VITALS: BP 115/55; PULSE 56; RESP 16; TEMP 36.6; O2SAT 93
--- NOTE | 2025-01-26 07:18 | P.PNIM_ITS ---
Subjective Subjective Date of Service: 01/26/25 Physical Exam 2 Vital Signs: Vital Signs: Last Vital Signs Temp 97.9 F 01/26/25 03:34 Pulse 56 01/26/25 03:34 Resp 16 01/26/25 03:34 BP 115/55 L 01/26/25 03:34 Pulse Ox 93 01/26/25 03:34 O2 Del Method Nasal Cannula 01/26/25 03:34 O2 Flow Rate 2 01/26/25 03:34 BMI result Body Mass Index 21.5 Objective Data Active Medications Acetaminophen (Acetaminophen 325 Mg Tablet) 650 mg PO Q6H PRN PRN Reason: Pain, Mild 1-3,fever,headache Albuterol/Ipratropium (Albuterol/Iprat 2.5/0.5mg 3 Ml Ampul.Neb) 3 ml INHALE RQ6H WHILE AWAKE PRN PRN Reason: Shortness of Breath Amoxicillin/Clavulanate Potassium (Amoxicillin/Potassium Clav 875 Mg Tablet) 875 mg PO BID [facility] Last Admin: 01/25/25 20:49 Dose: 875 mg Documented By: ELIANE Apixaban (Apixaban 2.5 Mg Tablet) 2.5 mg PO BID [facility] On Hold: 01/25/25 10:01 Resume: 01/26/25 21:00 Last Admin: 01/25/25 08:18 Dose: 2.5 mg Documented By: JYOTI Atorvastatin Calcium (Atorvastatin Calcium 80 Mg Tablet) 80 mg PO BEDTIME [facility] Last Admin: 01/25/25 20:50 Dose: 80 mg Documented By: ELIANE Bisacodyl (Bisacodyl 10 Mg Supp.Rect) 10 mg CA BEDTIME [facility] Last Admin: 01/25/25 20:53 Dose: 10 mg Documented By: ELIANE Calcium Carbonate (Calcium Carbonate 750 Mg Tab.Chew) 750 mg PO Q4H PRN PRN Reason: Heartburn Diazepam (Diazepam 10 Mg/2 Ml Cartridge) 2.5 mg IVPUSH Q8H PRN PRN Reason: Nausea Digoxin (Digoxin 0.125 Mg Tablet) 0.125 mg PO DAILY [facility]; Protocol Last Admin: 01/25/25 08:18 Dose: 0.125 mg Documented By: JYOTI Diltiazem HCl (Diltiazem Hcl Cd 240 Mg Cap.Er.Deg) 240 mg PO BEDTIME [facility]; Protocol Last Admin: 01/25/25 20:50 Dose: 240 mg Documented By: ELIANE Docusate Sodium (Docusate Sodium 100 Mg Capsule) 100 mg PO BID [facility] Last Admin: 01/25/25 20:50 Dose: 100 mg Documented By: ELIANE Doxycycline Monohydrate (Doxycycline Monohydrate 100 Mg Capsule) 100 mg PO Q12H [facility] Last Admin: 01/25/25 23:12 Dose: 100 mg Documented By: ELIANE Furosemide (Furosemide 20 Mg Tablet) 20 mg PO BID@0900,1800 [facility]; Protocol Last Admin: 01/25/25 17:46 Dose: 20 mg Documented By: JYOTI Lisinopril (Lisinopril 2.5 Mg Tablet) 2.5 mg PO BEDTIME [facility]; Protocol Last Admin: 01/25/25 20:49 Dose: 2.5 mg Documented By: ELIANE Magnesium Hydroxide (Milk Of Magnesia 30 Ml Oral.Susp) 30 ml PO DAILY PRN PRN Reason: Constipation Last Admin: 01/24/25 16:21 Dose: 30 ml Documented By: JYOTI Melatonin (Melatonin 3 Mg Tablet) 6 mg PO BEDTIME PRN PRN Reason: Insomnia Metoprolol Succinate (Metoprolol Succinate Er 25 Mg Tab.Er.24h) 75 mg PO BEDTIME [facility]; Protocol Last Admin: 01/25/25 20:49 Dose: 75 mg Documented By: ELIANE Polyethylene Glycol (Polyethylene Glycol 3350 17 Gm Powd.Pack) 17 gm PO DAILY [facility] Last Admin: 01/25/25 08:18 Dose: 17 gm Documented By: JYOTI Sodium Biphosphate/Sodium Phosphate (Sodium Phosphate,[place]-Dibasic 133 Ml Enema) 133 ml CA ONCE PRN PRN Reason: Constipation Sodium Biphosphate/Sodium Phosphate (Sodium Phosphate,[place]-Dibasic 133 Ml Enema) 133 ml CA ONCE PRN PRN Reason: Constipation Sodium Chloride (0.9 % Sodium Chloride Flush 3 Ml Syringe) 3 ml IVFLUSH QSHIFT [facility] Last Admin: 01/26/25 00:42 Dose: 3 ml Documented By: ELIANE Labs 01/21/25 05:11 01/23/25 11:55 Quality Stroke Does the patient have a stroke diagnosis?: No VTE Prior VTE?: No VTE Risk Level:: Medical - moderate - high VTE Device Contraindication: N/A - Device Ordered VTE Drug Contraindication: N/A - Med Ordered
[2025-01-26 07:49] VITALS: BP 107/54; PULSE 60; RESP 18; TEMP 36.1; O2SAT 94
[2025-01-26 12:00] VITALS: BP 132/58; PULSE 59; RESP 18; TEMP 36.1; O2SAT 96
[2025-01-26] MEDS: Lidocaine HCl 1 % 20 ML VIAL 10 ML INFILTRATI (12:26)
--- NOTE | 2025-01-26 13:38 | P.PNGS_ITS ---
Subjective Subjective Date of Service: 01/26/25 Interval history: No new complaints Physical Exam 2 Vital Signs: Vital Signs: Last Vital Signs Temp 97.0 F 01/26/25 12:00 Pulse 59 01/26/25 12:00 Resp 18 01/26/25 12:00 BP 132/58 L 01/26/25 12:00 Pulse Ox 96 01/26/25 12:00 O2 Del Method Nasal Cannula 01/26/25 12:00 O2 Flow Rate 2 01/26/25 12:00 BMI result Body Mass Index 21.5 Const: Other: Answers questions well General: comfortable and no acute distress Neck: Other: Firm mass on the left neck along the sternocleidomastoid, poorly defined, non mobile, about 3 cm Objective Data Active Medications Acetaminophen (Acetaminophen 325 Mg Tablet) 650 mg PO Q6H PRN PRN Reason: Pain, Mild 1-3,fever,headache Albuterol/Ipratropium (Albuterol/Iprat 2.5/0.5mg 3 Ml Ampul.Neb) 3 ml INHALE RQ6H WHILE AWAKE PRN PRN Reason: Shortness of Breath Amoxicillin/Clavulanate Potassium (Amoxicillin/Potassium Clav 875 Mg Tablet) 875 mg PO BID [facility] Last Admin: 01/26/25 08:31 Dose: Not Given Documented By: SUSAN Non-Admin Reason: NPO Apixaban (Apixaban 2.5 Mg Tablet) 2.5 mg PO BID [facility] On Hold: 01/25/25 10:01 Resume: 01/26/25 21:00 Last Admin: 01/25/25 08:18 Dose: 2.5 mg Documented By: JYOTI Atorvastatin Calcium (Atorvastatin Calcium 80 Mg Tablet) 80 mg PO BEDTIME [facility] Last Admin: 01/25/25 20:50 Dose: 80 mg Documented By: ELIANE Bisacodyl (Bisacodyl 10 Mg Supp.Rect) 10 mg CA BEDTIME [facility] Last Admin: 01/25/25 20:53 Dose: 10 mg Documented By: ELIANE Calcium Carbonate (Calcium Carbonate 750 Mg Tab.Chew) 750 mg PO Q4H PRN PRN Reason: Heartburn Diazepam (Diazepam 10 Mg/2 Ml Cartridge) 2.5 mg IVPUSH Q8H PRN PRN Reason: Nausea Digoxin (Digoxin 0.125 Mg Tablet) 0.125 mg PO DAILY [facility]; Protocol Last Admin: 01/26/25 08:31 Dose: Not Given Documented By: SUSAN Non-Admin Reason: NPO Diltiazem HCl (Diltiazem Hcl Cd 240 Mg Cap.Er.Deg) 240 mg PO BEDTIME [facility]; Protocol Last Admin: 01/25/25 20:50 Dose: 240 mg Documented By: ELIANE Docusate Sodium (Docusate Sodium 100 Mg Capsule) 100 mg PO BID [facility] Last Admin: 01/26/25 08:31 Dose: Not Given Documented By: SUSAN Non-Admin Reason: NPO Doxycycline Monohydrate (Doxycycline Monohydrate 100 Mg Capsule) 100 mg PO Q12H [facility] Last Admin: 01/26/25 10:26 Dose: Not Given Documented By: SUSAN Non-Admin Reason: NPO Furosemide (Furosemide 20 Mg Tablet) 20 mg PO BID@0900,1800 [facility]; Protocol Last Admin: 01/26/25 08:31 Dose: Not Given Documented By: SUSAN Non-Admin Reason: NPO Lisinopril (Lisinopril 2.5 Mg Tablet) 2.5 mg PO BEDTIME [facility]; Protocol Last Admin: 01/25/25 20:49 Dose: 2.5 mg Documented By: ELIANE Magnesium Hydroxide (Milk Of Magnesia 30 Ml Oral.Susp) 30 ml PO DAILY PRN PRN Reason: Constipation Last Admin: 01/24/25 16:21 Dose: 30 ml Documented By: JYOTI Melatonin (Melatonin 3 Mg Tablet) 6 mg PO BEDTIME PRN PRN Reason: Insomnia Metoprolol Succinate (Metoprolol Succinate Er 25 Mg Tab.Er.24h) 75 mg PO BEDTIME [facility]; Protocol Last Admin: 01/25/25 20:49 Dose: 75 mg Documented By: ELIANE Polyethylene Glycol (Polyethylene Glycol 3350 17 Gm Powd.Pack) 17 gm PO DAILY [facility] Last Admin: 01/26/25 08:31 Dose: Not Given Documented By: SUSAN Non-Admin Reason: NPO Sodium Biphosphate/Sodium Phosphate (Sodium Phosphate,[place]-Dibasic 133 Ml Enema) 133 ml CA ONCE PRN PRN Reason: Constipation Sodium Biphosphate/Sodium Phosphate (Sodium Phosphate,[place]-Dibasic 133 Ml Enema) 133 ml CA ONCE PRN PRN Reason: Constipation Sodium Chloride (0.9 % Sodium Chloride Flush 3 Ml Syringe) 3 ml IVFLUSH QSHIFT [facility] Last Admin: 01/26/25 08:30 Dose: Not Given Documented By: SUSAN Non-Admin Reason: Previously Administered Labs 01/21/25 05:11 01/23/25 11:55 Procedures Date of Service Date of Service: 01/26/25 Procedure Note Procedure Note: Procedure: Fine-needle aspiration biopsy of left neck lymph node She was placed in reclining position. The area of the enlarged lymph node was prepped and draped. Lidocaine 1% was used for local anesthesia. I used a gauge 18 needle I made multiple passes into the mass. This was placed into formalin She tolerated procedure well. There were no immediate complications. Progress Note: A&P Assessment and plan (1) Lymphadenopathy of left cervical region: Status: Acute Assessment and Plan: I proceeded to do fine-needle aspiration biopsy under local anesthesia Dressings were applied She tolerated procedure well Await for path report Time Spent With Patient Time: Total time managing care of this patient today ____ minutes. Quality Stroke Does the patient have a stroke diagnosis?: No VTE Prior VTE?: No VTE Risk Level:: Medical - moderate - high VTE Device Contraindication: N/A - Device Ordered VTE Drug Contraindication: N/A - Med Ordered
--- NOTE | 2025-01-26 14:46 | PM.DS ---
DS: Providers Provider Date of Service: 01/26/25 Date of admission: 01/23/25 07:52 Date of discharge: 01/26/25 Primary care physician: Hansel Gerber MD Consults: 01/24/25 06:00 Consult to Hematology / Oncology Routine Consulting [place] [facility] Reason for consultation: pending biopsy for possible malignancy/mets Has provider been notified: No 01/25/25 08:06 Consult to General Surgery Routine Consulting Provider: [facility] [place] Reason for consultation: breast cancer, for left neck biopsy. Has provider been notified: Yes DS: Diagnosis Discharge Diagnosis (1) Lymphadenopathy of left cervical region: Status: Acute DS: Summary Hospital Course Hospital Course: Per HPI:This is an 85-year-old female with a remote history of breast cancer who presents to the emergency department with shortness of breath. Patient was initially seen in the [facility] system on December 20 due to arm swelling and through workup reportedly found a ?spot on her lung and shoulder. She was supposed to have outpatient follow-up in the [facility] system but states that she waited multiple weeks without hearing back so she scheduled appointment with Dr. Connell. She was seen by Dr. Connell on January 12 and a biopsy was scheduled for today but she came to the emergency department instead. She reports progressive dyspnea on exertion and shortness of breaths for the past 1 week. She has to take multiple breaks with walking even short distances. She denies any cough or fever. She denies any recent sick contacts. She has not extremity edema, she denies orthopnea. In the emergency department she was noted to be hypoxic with an oxygen saturation of 88% on room air. CTA was negative for PE but did show possibility of pneumonia. She also reports nausea and thinks this is due to her hiatal hernia. Per outpatient oncology notes patient was seen at [facility] because of left cervical lymphadenopathy with worsening left arm edema. Her outpatient labs showed erythrocytosis, elevation in total bilirubin as well as transaminases and elevated LDH and alkaline phosphatase. CEA 36.4. 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 Guarded prognosis. For pneumonia she was treated with IV antibiotics-switched to p.o. with good effect which she needs to complete for 5 more days. Metastatic breast cancer Lymphadenopathy of left cervical region CT neck and chest performed at [facility] on 12/20/2024 revealed infiltrative soft tissue density in the left subclavian region with surrounding the left subclavian artery and measures approximately 2.8 x 3.4 x 2.9 cm. 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 Innumerable small sclerotic foci throughout the spine, sacrum. Skin thickening inferiorly in the left breast which may reflect posttreatment change or malignancy outpatient bx of the left supraclavicular mass was scheduled for today and will need to be rescheduled As per outpatient oncology note-overall prognosis is poor given her poor performance status as well as intolerance to oral hormonal therapy (Anastrozole was recently resumed but pt did not tolerate) Heme-Onc consulted for breast cancer workup as her left pneumonia could also be in the setting of exudative effusion - given her frailty and guarded prognosis, patient would benefit with inpatient lymph node biopsy Patient underwent lymph node biopsy by surgery, which we appreciate and she is to follow with outpatient oncologist Dr. Connell for follow-up History of CAD-statin, aspirin Paroxysmal atrial fibrillation -continue Eliquis, diltiazem, metoprolol, we checked daily labs and monitored on telemetry, uneventful Bioprosthetic aortic valve-continue Eliquis PPM-monitored on telemetry and electrolytes being checked and repleted to goal Acute CHF exacerbation-was managed with Lasix po bid Elevated LFTs-likely due to above probable mets to liver Thrombocytopenia- likely stress related, hospitalization. We will continue to monitor HTN- continued home meds lisinopril metoprolol and diltiazem This note is constructed using voice recognition software. While every effort has been made to ensure accuracy, industrial technology teacher errors may have been included. Total time managing care of this patient today: 45 minutes. Time spent discussing smoking cessation with patient: more than 10 minutes Status at Discharge Functional status at discharge: uses cane/walker Overall status at discharge: patient is progressing back to baseline Time Attestation Discharge Coordination Time (in mins): 45 Quality: Safe Use of Opioids Does Pt have an Active Cancer Diagnosis on the Problem List?: Yes Opioid Measure Date for [facility] Report: 12/27/24 Opioid Measure Time for [facility] Report: 15:22 Quality: Stroke Does the patient have a stroke diagnosis?: No Physical Exam Vital Signs: Vital Signs: Last Vital Signs Temp 97.0 F 01/26/25 12:00 Pulse 59 01/26/25 12:00 Resp 18 01/26/25 12:00 BP 132/58 L 01/26/25 12:00 Pulse Ox 96 01/26/25 12:00 O2 Del Method Nasal Cannula 01/26/25 12:00 O2 Flow Rate 2 01/26/25 12:00 BMI result Body Mass Index 21.5 Discharge Plan Discharge Anticipated Discharge Date/Time: 01/26/25 14:35 Patient Disposition: Xfer SNF Discharge Diagnosis: AHRF 2/2 pneumonia versus breast cancer resurgence in a patient with poor performance status and intolerance to hormonal therapy with poor prognostication Referrals: [place] [Outside] - 1 Week Referral Note: TRANSFER FOR SHORT TERM REHAB Abby Connell MD [Physician, Hematology & Oncology] - 1 Week Hansel Gerber MD [Primary Care Provider, Internal Medicine] - 1 Week Discharge Medications: New amoxicillin-pot clavulanate 875-125 mg Tablet 1 tab PO BID 1 Days Qty: 2 0RF ipratropium-albuterol 0.5 mg-3 mg(2.5 mg base)/3 mL Solution For Nebulization 3 ml inhalation RQ6H WHILE AWAKE PRN (Reason: Shortness Of Breath) 30 Days Qty: 180 0RF Continued aspirin 81 mg tablet,delayed release (DR/EC) 81 mg PO DAILY Qty: 30 0RF Eliquis 2.5 mg tablet 2.5 mg PO BID Qty: 180 4RF coQ10 (ubiquinol) 200 mg Capsule 200 mg PO DAILY digoxin 125 mcg (0.125 mg) tablet 125 mcg PO DAILY atorvastatin 80 mg tablet 80 mg PO BEDTIME diltiazem HCl 240 mg capsule,extended release 24hr 240 mg PO BEDTIME metoprolol succinate 25 mg tablet extended release 24 hr 75 mg PO BEDTIME lisinopril 2.5 mg tablet 2.5 mg PO BEDTIME Discharge Orders: Discharge Order (Routine); Ordered 01/26/25 Ordered By: Abigail Dennis Diet: Low salt diet Activity on Discharge: As tolerated Stand Alone Forms: Patient Portal Discharge page Print Language: Kenyan Care Plan Goals: Follow with oncology regarding lymph node biopsy results which was done on 12/26/2024 as well as further chemotherapy for breast cancer. Follow with PCP within a week after discharge Please complete the antibiotic course PTOT Complete rehab is required Please feel free to ED if needed. Health Concerns: See above Plan of Treatment: See above Assessment: See above Patient Instructions: Pneumonia (DC), [place] Lymph Node Biopsy (DC), Needle Biopsy (DC)
--- NOTE | 2025-01-26 14:56 | MHC.CM.PN ---
DP: PT HAS BEEN MEDICALLY CLEARED FOR DC TO STR AT [facility]. BLS TRANSPORT BOOKED FOR 4 PM [facility]IA [facility]. RN UPDATED. CENTER UPDATED VIA [facility].FINAL IMM ISSUED.
[2025-01-26 14:59] VITALS: BP 104/58; PULSE 93; RESP 18; TEMP 36.7; O2SAT 90
[2025-01-26 15:25] VITALS: O2SAT 92
--- NOTE | 2025-01-26 17:41 | P.CDIM_ITS ---
PROVIDER RESPONSE TEXT: To clarify, the appropriate diagnosis supported by the clinical indicators: Diastolic: Chronic, grade 1 mild diastolic dysfunction QUERY TEXT: PHYSICIAN'S DOCUMENTATION REQUEST Date of Query: 01/25/2025 07:48 AM EST Patient Name: Lora Herron Admit Date: 01/23/2025 Dear Abigail Dennis MD, A review of the medical record indicates additional documentation may be needed. Please review below and update the documentation accordingly. Clinical Indicators: Progress note 01/24/25 - Acute Congestive heart failure exacerbation. IV Lasix BNP elevated. Daily weights, cardiac diet. Echo performed 01/20/25 Please provide further specificity regarding the most likely type and acuity of CHF you are evaluating, treating, or monitoring. Systolic Please specify if Acute, Chronic, or Acute on chronic, or Unable to determine Diastolic Please specify if Acute, Chronic, or Acute on chronic, or Unable to determine Combined Systolic/Diastolic Please specify if Acute, Chronic, or Acute on chronic, or Unable to determine Other (explain) Clinically unable to determine (explain) Thank you, Leslie Rinaldi, CCS, CDIS Use of terms such as suspected, likely, concern for, or probable (associated with a specific diagnosis that is being evaluated, monitored, or treated as if it exists) are acceptable and can be coded in the inpatient setting, when documented at the time of discharge. Please use your independent medical judgment in providing your response. THIS QUERY IS PART OF THE PERMANENT MEDICAL RECORD
== END 2025-01-26 16:46 | disposition skilled nursing facility (03) | DRG 802 ==
LOC: HO.ED 12:50 → HO.EDOVER 13:17 → HO.IMC 01-21 15:22 → HO.S3 01-23 15:38
PROVIDERS: Hospitalist; Physician Assistant Medical; Admitting Provider Physician Assistant Medical; Emergency Provider Emergency Medicine; PCP Family Medicine; Visit Provider Student in an Organized Health Care Education/Training Program
DX: R59.0 Localized enlarged lymph nodes (principal); J18.9 Pneumonia, unspecified organism; J96.01 Acute respiratory failure with hypoxia; C78.7 Secondary malignant neoplasm of liver and intrahepatic bile duct; C79.51 Secondary malignant neoplasm of bone; I50.32 Chronic diastolic (congestive) heart failure; I25.10 Atherosclerotic heart disease of native coronary artery without angina pectoris; C50.912 Malignant neoplasm of unspecified site of left female breast; I48.0 Paroxysmal atrial fibrillation; D69.6 Thrombocytopenia, unspecified; Z20.822 Contact with and (suspected) exposure to COVID-19; Z95.0 Presence of cardiac pacemaker; Z95.2 Presence of prosthetic heart valve; Z86.73 Personal history of transient ischemic attack (TIA), and cerebral infarction without residual deficits; Z87.891 Personal history of nicotine dependence; Z79.01 Long term (current) use of anticoagulants; Z79.82 Long term (current) use of aspirin; Z79.899 Other long term (current) drug therapy
CPT/HCPCS: 36415; 70450; 71045; 71275; 80048; 80053; 82803; 83735; 83880; 84145; 84484; 85025; 85027; 87502; 87633; 87635; 88173; 88305; 93005; 93306; 97110; 97162; 97166; 97530; 99221; 99285; J0696; J1200; J1271; J1938; J2003; J2405; J2765; J7120; Q9957

== ENCOUNTER → 2025-01-20 07:09 | Outpatient (BNV) | payer MEDICARE, SELFPAY | PROVIDERS: PCP Family Medicine; Visit Provider Radiology Diagnostic Radiology | DX: I25.10 Atherosclerotic heart disease of native coronary artery without angina pectoris (principal); I31.39 Other pericardial effusion (noninflammatory); I34.81 Nonrheumatic mitral (valve) annulus calcification; K44.9 Diaphragmatic hernia without obstruction or gangrene; I67.2 Cerebral atherosclerosis; I51.7 Cardiomegaly | CPT/HCPCS: 70450; 71045; 71275 ==

== ENCOUNTER → 2025-01-20 07:09 | Outpatient (BNV) | payer MEDICARE, SELFPAY | PROVIDERS: Admitting Provider Physician Assistant Medical; Emergency Provider Emergency Medicine; PCP Family Medicine; Visit Provider Internal Medicine | DX: R94.31 Abnormal electrocardiogram [ECG] [EKG] (principal); Z95.0 Presence of cardiac pacemaker | CPT/HCPCS: 93010 ==

== ENCOUNTER → 2025-01-20 13:09 | Outpatient (BNV) | payer MEDICARE, SELFPAY | PROVIDERS: Admitting Provider Physician Assistant Medical; Emergency Provider Emergency Medicine; PCP Family Medicine; Visit Provider Hospitalist | DX: I50.9 Heart failure, unspecified (principal); I48.19 Other persistent atrial fibrillation; C50.919 Malignant neoplasm of unspecified site of unspecified female breast; I63.9 Cerebral infarction, unspecified; J18.9 Pneumonia, unspecified organism; J96.01 Acute respiratory failure with hypoxia | CPT/HCPCS: 99232; 99233; 99239 ==

== ENCOUNTER → 2025-01-23 07:52 | Outpatient (BNV) | payer MEDICARE, SELFPAY | PROVIDERS: Admitting Provider Physician Assistant Medical; Emergency Provider Emergency Medicine; PCP Family Medicine; Visit Provider Surgery | DX: R59.0 Localized enlarged lymph nodes (principal) | CPT/HCPCS: 10021; 99232 ==

== ENCOUNTER → 2025-01-23 07:52 | Outpatient (BNV) | payer MEDICARE, SELFPAY | PROVIDERS: Admitting Provider Physician Assistant Medical; Emergency Provider Emergency Medicine; PCP Family Medicine; Visit Provider Internal Medicine Medical Oncology | DX: C50.412 Malignant neoplasm of upper-outer quadrant of left female breast (principal); C79.51 Secondary malignant neoplasm of bone; R22.32 Localized swelling, mass and lump, left upper limb; Z17.0 Estrogen receptor positive status [ER+] | CPT/HCPCS: 99222; 99232 ==